=== PATIENT | female | born 1960 | race Caucasian/White ===

== ENCOUNTER 2018-06-23 13:14 | Inpatient (IN) ==
[2018-06-23] MEDS ORDERED: ONDANSETRON INJ 2 MG/ML 2 ML VIAL IV STA (13:49)
[2018-06-23] MEDS ORDERED: MoRPHine SULFATE 4 MG/ML 1 ML CARP\\VIAL IV STA ×2 (13:49→15:59)
[2018-06-23] MEDS ORDERED: SODIUM CHLORIDE 0.9% 1000ML 500 ML IV ONE (13:49)
[2018-06-23 14:17] LABS: Basophils # (auto) 0.01 K/uL (0-0.2); Basophils % (auto) 0.1 %; Hematocrit (blood only) 39.8 % (37-47); Hemoglobin 12.5 g/dL (12.0-16.0); Immature Granulocytes # (auto) 0.03 K/uL (0.00-0.02); Immature Granulocytes % (auto) 0.3 %; Lymphocytes # (auto) 1.27 K/uL (1.2-3.4); Lymphocytes % (auto) 10.8 %; Mean Corpuscular Hgb Conc 31.4 g/dL (32-36); Mean Corpuscular Volume 91.5 fL (80-100); Mean Platelet Volume 9.2 fL (7.4-10.4); Monocytes # (auto) 0.77 K/uL (0.11-0.59); Monocytes % (auto) 6.5 %; Neutrophils % (auto) 82.3 %; Platelet Count 376 K/uL (130-400); RDW Coefficient of Variation 13.5 % (11.5-14.5); RDW Standard Deviation 44.5 fL (36.4-46.3); Red Blood Count 4.35 M/uL (4.2-5.4); White Blood Count 11.78 K/uL (4.8-10.8)
[2018-06-23 14:33] LABS: Alanine Aminotransferase 16 U/L (12-78); Aspartate Aminotransferase 11 U/L (15-37); BUN Creatinine Ratio 15.7 (10-20); Blood Urea Nitrogen 11 mg/dl (7-18); Calcium 9.6 mg/dl (8.5-10.1); Carbon Dioxide 24 mmol/L (21-32); Chloride 100 mmol/L (98-107); Est GFR (African American) 108.1; Est GFR (Non-African American) 93.2; Glucose 107 mg/dl (70-99); Potassium 3.5 mmol/L (3.5-5.1); Sodium 137 mmol/L (136-145)
[2018-06-23 14:36] LABS: Albumin Globulin Ratio 0.6 (0.9-2); Alkaline Phosphatase 94 U/L (45-117); Bilirubin,Total 0.7 mg/dl (0.2-1); Globulin 4.7 gm/dl (2.5-4.0); Total Protein 7.7 gm/dl (6.4-8.2)
[2018-06-23] MEDS ORDERED: IOVERSOL 100ml IV PRN (15:42)
--- NOTE | 2018-06-23 16:06 | CT Scan Report ---
CT lumbar spine wo con CT DOSE: 0.00 mGy.cm CLINICAL HISTORY: Low back pain with left lower extremity radiculopathy. TECHNIQUE: Helical images were acquired in transverse plane. Reformatted sagittal and coronal images were reviewed. A dose lowering technique was utilized adhering to the principles of ALARA. CONTRAST: No contrast was administered COMPARISON STUDY: None. FINDINGS: Evaluation is somewhat limited due to the patient's very large body habitus and secondary beam harden ing artifact. L1-2 level: There are destructive changes involving the endplates. The findings are viewed as suspici ous for discitis osteomyelitis. An MRI the spine is recommended in follow-up to evaluate for epidural disease. L2-3 level: There is extensive discogenic endplate sclerosis. There is mild to moderate spinal stenos is. There is facet joint arthropathy. L3-4 level: There is a circumferential disc bulge. There is moderate to severe spinal stenosis. Ther e is facet joint arthropathy. L4-5 level: There is a circumferential disc bulge. There is no significant spinal or foraminal stenos is. L5-S1 level: There is no evidence of significant disc bulge or focal herniation. There is no evidence of spinal or foraminal stenosis. There are multiple psoas calcifications. IMPRESSION: 1. No acute fractures or traumatic subluxations 2. Destruction of the L1-2 endplates. The findings are suspicious for discitis and osteomyelitis. An MRI the lumbar spine is recommended in follow-up. 3. Multifactorial moderate spinal stenosis the L2-3 level, and moderate to severe spinal stenosis the L3-4 level. 4. Multifocal psoas calcifications. Electronically signed by: Garland Avalos M.D. 06/23/2018 4:05 PM
--- NOTE | 2018-06-23 16:20 | CT Scan Report ---
CT OF THE ABDOMEN AND PELVIS WITH CONTRAST CLINICAL HISTORY: Abdominal pain. Low back pain with chronic left lower extremity radiculopathy. COMPARISON STUDY: None. TECHNIQUE: Following IV administration of 94 mL of Optiray-320, axial images of the abdomen and pelvi s were obtained from the lung bases to the proximal femurs. Images were reviewed in the axial, sagitt al, and coronal planes. IV contrast was administered without complication. Automated exposure contro l was utilized for the study. A dose lowering technique was utilized adhering to the principles of A BILLIE. CT DOSE: 1196.26 mGycm FINDINGS: Please note that the lumbar spine CT will be reported separately. Lung bases are clear. The liver, spleen, adrenal glands, kidneys and pancreas are unremarkable. There is no hydronephrosis. Th ere is no evidence for a bowel obstruction. No lymphadenopathy or ascites is noted. The appendix is n ormal. There is no biliary or pancreatic ductal dilatation. The lumbar spine will be reported separat bulmaro. Destruction of the inferior endplate of L1 and superior endplate of L2 is noted. Paravertebral i nfiltration is noted. Central canal is suboptimally assessed by CT. There are multifocal calcificatio ns within the bilateral psoas muscles. Associated fluid collections cannot be excluded. There is danny ed disc space narrowing at L2-L3. Transitional vertebra is designated as L5 on this exam. This partia lly sacralized. IMPRESSION: 1. Severe destruction of the inferior endplate of L1 and superior endplate of L2 which suggests disci tis/osteomyelitis. MRI of the lumbar spine with and without contrast is recommended to evaluate for e pidural abscess. Calcifications within the bilateral psoas muscles are likely related to this process . The psoas muscles can be assessed at time of MRI to exclude intramuscular abscess. 2. No acute process within the abdomen or pelvis. No bowel obstruction. Normal appendix. Electronically signed by: Rc Yao M.D. 06/23/2018 4:18 PM
[2018-06-23] MEDS ORDERED: VANCOMYCIN CONSULT ACTIVE PRN (16:25)
[2018-06-23] MEDS ORDERED: PIPERACILLIN/TAZOBACTAM 4.5 GM/120 ML BAG IV ONE (16:25)
[2018-06-23] MEDS ORDERED: VANCOMYCIN HCL 1,000 MG/270 ML BAG IV STA (16:25)
[2018-06-23] MEDS ORDERED: PIPERACILL/TAZOBAC CONSULT ACTIVE PRN (16:25)
[2018-06-23] MEDS ORDERED: HYDROmorphone INJ 0.5 MG/0.5 ML SYR IV STA (16:49)
--- NOTE | 2018-06-23 17:26 | Emergency Department Note ---
History of Present Illness General Chief complaint: Back Injury/Pain Stated complaint: SEVERE PAIN IN LOWER BACK AND LEGS Time Seen by Provider: 06/23/18 13:34 History of Present Illness Maximum Pain Intensity: 10 57-year-old female who presents to emergency department with complaint of persistent and worsening lower back pain. The patient reports that she has been dealing with this pain for the past several months. She reports a history of chronic left sciatica, and does see a chiropractor. The patient reports that the pain is worsened with any movement. The patient reports that she has been seen here twice with similar pain, diagnosed initially with a UTI, and second time with constipation. The patient reports that she did use stool softeners which were very effective. She now reports that when she drinks water , she immediately has watery diarrhea. The patient has not had any fever or chills, recurrent urinary symptoms or significant abdominal pain. The patient denies any other recent infections. She denies IV drug abuse. The patient reports that she does have a remote history of MRSA infection with a left leg cellulitis. The patient rates her discomfort a 10 out of 10. Home Medications Home Medications Medication Instructions Recorded Confirmed Type benazepril 40 mg PO QAM 05/14/18 06/23/18 History diclofenac sodium 75 mg PO BID 05/14/18 06/23/18 History diltiazem HCl 240 mg PO QAM 05/14/18 06/23/18 History gabapentin 300 mg PO TID 05/14/18 06/23/18 History citalopram [Celexa] 40 mg PO QAM 06/06/18 06/23/18 History acetaminophen [Tylenol Extra 1,500 mg PO UD PRN 06/23/18 06/23/18 History Strength] Allergies Allergy/AdvReac Type Severity Reaction Status Date / Time No Known Allergies Allergy Verified 06/23/18 14:37 Past Med/Surg History Social History Current Living Situation: Alone current occupational status: unemployed Other Information That Helps Us Care for You: No Feels Safe at Home: Yes Safety Concerns: Feels Safe At This Time Smoking Status: Never smoker Do You Dip or Chew Tobacco: No Second Hand Exposure: No Hx Alcohol Use: Yes Alcohol type: wine Alcohol Intake Frequency: other Hx Substance Use: No Beliefs That Will Affect Care: None Preferred Language: Stateless Communication Ability: Effective Review of Systems HEENT: Denies dizziness, visual problems, hearing loss, tinnitus. Denies difficulty swallowing or oral lesions. PULMONARY: Denies cough, shortness of breath, sputum production or hemoptysis. CARDIOVASCULAR: Denies chest pain, palpitations, dyspnea on exertion, orthopnea or peripheral edema. GASTROINTESTINAL: Denies diarrhea, constipation, nausea, vomiting, or abdominal pain. GENITOURINARY: Denies any current dysuria, frequency, urgency or nocturia. NEUROLOGIC: Denies history of epilepsy, CVA, TIA or chronic headaches. MUSCULOSKELETAL: Denies history of joint tenderness/swelling. SKIN: Denies rashes or lesions. PSYCHIATRIC: Denies history of depression or mental illness. ENDOCRINE: Denies history of diabetes or thyroid disorders. Physical Exam Vital Signs Vital Signs - 24 hr 06/23/18 13:17 06/23/18 15:16 06/23/18 17:08 Temperature 36.6 C Temperature Source Oral Sepsis Recent Fever Within 48 Hours No Sepsis New/Unexplained Change in Mental Status No Sepsis Action Taken by Nursing No Action Required Pulse Rate 82 Pulse Rate [Right Finger] 82 88 Respiratory Rate 18 20 20 Respiratory Effort / Characteristics Non-Labored Non-Labored Respiratory Depth Normal Normal Respiratory Pattern Blood Pressure 130/84 Blood Pressure [Right Arm] 157/87 H 143/88 H Blood Pressure Mean 99 Blood Pressure Mean [Right Arm] 110 106 Blood Pressure Position [Right Arm] Pulse Oximetry 99 98 99 Oxygen Delivery Method Room Air Room Air Room Air 06/23/18 18:51 06/23/18 19:57 Temperature 37.1 C Temperature Source Oral Sepsis Recent Fever Within 48 Hours Sepsis New/Unexplained Change in Mental Status Sepsis Action Taken by Nursing Pulse Rate 86 Pulse Rate [Right Finger] 88 Respiratory Rate 20 20 Respiratory Effort / Characteristics Non-Labored Spontaneous Respiratory Depth Normal Respiratory Pattern Regular Blood Pressure 145/82 H Blood Pressure [Right Arm] 123/79 Blood Pressure Mean Blood Pressure Mean [Right Arm] 93 Blood Pressure Position [Right Arm] Lying Pulse Oximetry 95 93 Oxygen Delivery Method Room Air Room Air CONSTITUTIONAL: Healthy and well nourished obese female, alert and oriented X 3. Patient appears in moderately severe discomfort. HEENT: Normocephalic, atraumatic. Pupils equal, round and reactive. No scleral icterus or conjunctival injection/pallor. NECK: Full active range of motion without discomfort. RESPIRATORY: Clear to auscultation bilaterally with no wheezing, crackles, rhonchi or stridor. CARDIOVASCULAR: Regular rate and rhythm with no murmurs, rubs or gallops. GASTROINTESTINAL: Bowel sounds present in all quadrants. Abdomen is soft and nontender to palpation. Negative McBurney's point tenderness. MUSCULOSKELETAL: Examination shows generalized tenderness to palpation through the upper lumbar spine. No skin changes noted. Negative logroll bilaterally. Pedal pulses are intact. INTEGUMENTARY: No rash or other significant dermatologic conditions noted. Is no dermatomal rashes. HEMATOLOGIC: No ecchymosis or petechiae. PSYCHIATRIC: Positive affect. NEUROLOGIC: Cranial nerves II-XII grossly intact. No focal neurologic deficits noted. Lower extremities are sensory intact. Course Patient history and physical exam were performed. Nurse's notes were reviewed. Vital signs were reviewed and were normal. I also reviewed documentation from the patient's last 2 ED visits. Her first visit was on 05/15/19 for an acute UTI. She was seen here again on 06/06/18 having labs performed, and a KUB which showed moderate constipation. The patient was instructed to follow-up with her PCP for further management, however the patient reports that her PCP at [facility] left, and has been seeing a physician emergency medicine physician assistant. Reevaluated for her last 2 ED visits. Because the patient's persistent and increasing back pain, and concern for other acute intra-abdominal or intramuscular etiologies that cannot be seen on traditional x-rays, I did recommend performing a CT scan. The patient was in agreement. IV access was established, and labs were drawn. The patient was initially administered IV morphine and Zofran. The patient had a brief period of respite from the pain, but then the pain started to come back. She was administered an additional dose of IV morphine. Review of labs showed a mildly increased white count, otherwise remaining labs were normal, including a normal urine pulses. Noncontrast CT of the lumbar spine, as well as a CT of the abdomen and pelvis with IV contrast showed severe destruction of the inferior endplate of L1 and superior endplate of L2, suggestive of discitis/ osteomyelitis. The patient had worsening pain again, and was then administered IV Dilaudid. Additional labs were ordered, including sed rate, CRP and blood cultures x2. Sed rate and CRP are markedly elevated. The patient was also administered IV Zosyn and vancomycin antibiotics. An MRI of the lumbar spine with and without contrast was ordered. The patient did go to the MRI suite and could not tolerate the studies secondary to pain. The case was further discussed with Dr. Strickland, ED attending physician, who recommended hospitalist consultation. The patient was seen and evaluated by Dr. Escalera, [facility] hospitalist for admission. I did speak briefly with Dr. De La Rosa, spine surgeon who agrees with admission plan, and will consult with the hospitalist service. Please see hospitalist and Dr. De La Rosa's dictations for further treatment and final disposition. Administered Medications Discontinued Medications Hydromorphone HCl (Dilaudid) 0.5 mg IV NOW STA Stop: 06/23/18 16:50 Last Admin: 06/23/18 17:10 Dose: 0.5 mg Hydromorphone HCl (Dilaudid) 1 mg IV NOW STA Stop: 06/23/18 18:22 Last Admin: 06/23/18 19:45 Dose: 1 mg Sodium Chloride (Nss 1000ml) 500 mls @ 999 mls/hr IV .Q31M ONE Stop: 06/23/18 14:19 Last Infusion: 06/23/18 14:40 Dose: 0 mls/hr Admin: 06/23/18 14:14 Dose: 999 mls/hr Piperacillin Sod/Tazobactam Sod (Zosyn) 4.5 gm in 120 mls @ 240 mls/hr IV NOW ONE Stop: 06/23/18 16:54 Last Admin: 06/23/18 18:37 Dose: 240 mls/hr Vancomycin HCl (Vancomycin Hcl) 1,000 mg in 270 mls @ 125 mls/hr IV NOW STA Stop: 06/23/18 18:34 Last Admin: 06/23/18 19:05 Dose: 125 mls/hr Ioversol (Optiray 320 100ml) 94 ml IV ONCE PRN PRN Reason: Interaction Checking Stop: 06/27/18 15:41 Last Admin: 06/23/18 15:43 Dose: 94 ml Miscellaneous (Patient's Height And/Or Weight Needed) 1 ea N/A Q2H BRAULIO Stop: 07/23/18 18:44 Last Admin: 06/23/18 19:46 Dose: 1 ea Morphine Sulfate (Morphine Sulfate) 4 mg IV NOW STA Stop: 06/23/18 13:50 Last Admin: 06/23/18 14:14 Dose: 4 mg Morphine Sulfate (Morphine Sulfate) 4 mg IV NOW STA Stop: 06/23/18 16:00 Last Admin: 06/23/18 16:03 Dose: 4 mg Ondansetron HCl (Zofran) 4 mg IV NOW STA Stop: 06/23/18 13:50 Last Admin: 06/23/18 14:15 Dose: 4 mg Medical Decision Making Medical Records Attestation: I reviewed the patient's medical records. Home Medications Current Medication List: was personally reviewed by me Laboratory Data Attestation: I reviewed the patient's lab results. Result diagrams: 06/23/18 14:05 06/23/18 14:05 Lab Results 06/23/18 06/23/18 06/23/18 Range/Units 14:05 14:05 14:05 WBC 11.78 H (4.8-10.8) K/uL RBC 4.35 (4.2-5.4) M/uL Hgb 12.5 (12.0-16.0) g/dL Hct 39.8 (37-47) % MCV 91.5 (80-100) fL MCH 28.7 (25-34) pg MCHC 31.4 L (32-36) g/dL RDW Std Deviation 44.5 (36.4-46.3) fL RDW Coeff of Fausto 13.5 (11.5-14.5) % Plt Count 376 (130-400) K/uL MPV 9.2 (7.4-10.4) fL Immature Gran % (Auto) 0.3 % Neut % (Auto) 82.3 % Lymph % (Auto) 10.8 % Waldo % (Auto) 6.5 % Eos % (Auto) 0.0 % Baso % (Auto) 0.1 % Immature Gran # (Auto) 0.03 H (0.00-0.02) K/uL Neut # (Auto) 9.70 H (1.4-6.5) K/uL Lymph # (Auto) 1.27 (1.2-3.4) K/uL Waldo # (Auto) 0.77 H (0.11-0.59) K/uL Eos # (Auto) 0.00 (0-0.5) K/uL Baso # (Auto) 0.01 (0-0.2) K/uL ESR 86 H (0-21) mm/hr Sodium 137 (136-145) mmol/L Potassium 3.5 (3.5-5.1) mmol/L Chloride 100 (98-107) mmol/L Carbon Dioxide 24 (21-32) mmol/L Anion Gap 12.0 H (3-11) BUN 11 (7-18) mg/dl Creatinine 0.71 (0.6-1.2) mg/dl Est Cr Clr Drug Dosing Not Reportable Est GFR ( Amer) 108.1 Est GFR (Non-Af Amer) 93.2 BUN/Creatinine Ratio 15.7 (10-20) Glucose 107 H (70-99) mg/dl Calcium 9.6 (8.5-10.1) mg/dl Total Bilirubin 0.7 (0.2-1) mg/dl AST 11 L (15-37) U/L ALT 16 (12-78) U/L Alkaline Phosphatase 94 (45-117) U/L C-Reactive Protein (0-0.29) mg/dl Total Protein 7.7 (6.4-8.2) gm/dl Albumin 3.0 L (3.4-5.0) gm/dl Globulin 4.7 H (2.5-4.0) gm/dl Albumin/Globulin Ratio 0.6 L (0.9-2) Lipase 68 L (73-393) U/L 06/23/18 Range/Units 14:05 WBC (4.8-10.8) K/uL RBC (4.2-5.4) M/uL Hgb (12.0-16.0) g/dL Hct (37-47) % MCV (80-100) fL MCH (25-34) pg MCHC (32-36) g/dL RDW Std Deviation (36.4-46.3) fL RDW Coeff of Fausto (11.5-14.5) % Plt Count (130-400) K/uL MPV (7.4-10.4) fL Immature Gran % (Auto) % Neut % (Auto) % Lymph % (Auto) % Waldo % (Auto) % Eos % (Auto) % Baso % (Auto) % Immature Gran # (Auto) (0.00-0.02) K/uL Neut # (Auto) (1.4-6.5) K/uL Lymph # (Auto) (1.2-3.4) K/uL Waldo # (Auto) (0.11-0.59) K/uL Eos # (Auto) (0-0.5) K/uL Baso # (Auto) (0-0.2) K/uL ESR (0-21) mm/hr Sodium (136-145) mmol/L Potassium (3.5-5.1) mmol/L Chloride (98-107) mmol/L Carbon Dioxide (21-32) mmol/L Anion Gap (3-11) BUN (7-18) mg/dl Creatinine (0.6-1.2) mg/dl Est Cr Clr Drug Dosing Est GFR ( Amer) Est GFR (Non-Af Amer) BUN/Creatinine Ratio (10-20) Glucose (70-99) mg/dl Calcium (8.5-10.1) mg/dl Total Bilirubin (0.2-1) mg/dl AST (15-37) U/L ALT (12-78) U/L Alkaline Phosphatase (45-117) U/L C-Reactive Protein 10.70 H (0-0.29) mg/dl Total Protein (6.4-8.2) gm/dl Albumin (3.4-5.0) gm/dl Globulin (2.5-4.0) gm/dl Albumin/Globulin Ratio (0.9-2) Lipase (73-393) U/L Imaging Data Attestation: I personally reviewed and interpreted this imaging study as follows : My Impression: Noncontrast CT of the lumbar spine shows signal changes at the L1 -2 region without evidence for obvious fracture. CT of the abdomen and pelvis with IV contrast does not show any acute intra- abdominal findings. Radiologist does make mention of severe destructive lesions of the inferior L1 endplate, and superior L2 endplate, suggestive of discitis/osteomyelitis. Radiologist's Impression: CT lumbar spine wo con CT DOSE: 0.00 mGy.cm CLINICAL HISTORY: Low back pain with left lower extremity radiculopathy. TECHNIQUE: Helical images were acquired in transverse plane. Reformatted sagittal and coronal images were reviewed. A dose lowering technique was utilized adhering to the principles of ALARA. CONTRAST: No contrast was administered COMPARISON STUDY: None. FINDINGS: Evaluation is somewhat limited due to the patient's very large body habitus and secondary beam hardening artifact. L1-2 level: There are destructive changes involving the endplates. The findings are viewed as suspicious for discitis osteomyelitis. An MRI the spine is recommended in follow-up to evaluate for epidural disease. L2-3 level: There is extensive discogenic endplate sclerosis. There is mild to moderate spinal stenosis. There is facet joint arthropathy. L3-4 level: There is a circumferential disc bulge. There is moderate to severe spinal stenosis. There is facet joint arthropathy. L4-5 level: There is a circumferential disc bulge. There is no significant spinal or foraminal stenosis. L5-S1 level: There is no evidence of significant disc bulge or focal herniation. There is no evidence of spinal or foraminal stenosis. There are multiple psoas calcifications. IMPRESSION: 1. No acute fractures or traumatic subluxations 2. Destruction of the L1-2 endplates. The findings are suspicious for discitis and osteomyelitis. An MRI the lumbar spine is recommended in follow-up. 3. Multifactorial moderate spinal stenosis the L2-3 level, and moderate to severe spinal stenosis the L3-4 level. 4. Multifocal psoas calcifications. CT OF THE ABDOMEN AND PELVIS WITH CONTRAST CLINICAL HISTORY: Abdominal pain. Low back pain with chronic left lower extremity radiculopathy. COMPARISON STUDY: None. TECHNIQUE: Following IV administration of 94 mL of Optiray-320, axial images of the abdomen and pelvis were obtained from the lung bases to the proximal femurs. Images were reviewed in the axial, sagittal, and coronal planes. IV contrast was administered without complication. Automated exposure control was utilized for the study. A dose lowering technique was utilized adhering to the principles of ALARA. CT DOSE: 1196.26 mGycm FINDINGS: Please note that the lumbar spine CT will be reported separately. Lung bases are clear. The liver, spleen, adrenal glands, kidneys and pancreas are unremarkable. There is no hydronephrosis. There is no evidence for a bowel obstruction. No lymphadenopathy or ascites is noted. The appendix is normal. There is no biliary or pancreatic ductal dilatation. The lumbar spine will be reported separately. Destruction of the inferior endplate of L1 and superior endplate of L2 is noted. Paravertebral infiltration is noted. Central canal is suboptimally assessed by CT. There are multifocal calcifications within the bilateral psoas muscles. Associated fluid collections cannot be excluded. There is marked disc space narrowing at L2-L3. Transitional vertebra is designated as L5 on this exam. This partially sacralized. IMPRESSION: 1. Severe destruction of the inferior endplate of L1 and superior endplate of L2 which suggests discitis/osteomyelitis. MRI of the lumbar spine with and without contrast is recommended to evaluate for epidural abscess. Calcifications within the bilateral psoas muscles are likely related to this process. The psoas muscles can be assessed at time of MRI to exclude intramuscular abscess. 2. No acute process within the abdomen or pelvis. No bowel obstruction. Normal appendix. Prescription Drug Monitoring [place] Drug Monitoring Program reviewed and no issues identified Blood Pressure Blood Pressure Findings: Normal blood pressure MDM Narrative CT findings today are concerning for osteomyelitis of the lumbar spine. Other than the patient's recent UTI, she denies any other recent infections or injuries to the back. She does have a history of chronic back pain and sciatica. Her urinalysis is not suggestive of UTI which she has recently had. CT scans does not show any other intra-abdominal etiologies such as appendicitis , diverticulitis or bowel obstruction. Impression & Plan Acute osteomyelitis of lumbar spine Discharge Plan Visit Data *Final* Discharge Date/Time: 06/23/18 18:51 Chief Complaint: Back Injury/Pain Stated Complaint: SEVERE PAIN IN LOWER BACK AND LEGS ED Provider: Red Strickland ED Midlevel Provider: Nilson Florentino Discharge Problem: Acute osteomyelitis of lumbar spine Patient Disposition: Admitted As Inpatient Discharge Instructions Interventions: ED Discharge Assessment Last Done: 06/23/18 18:51
[2018-06-23] MEDS ORDERED: ONDANSETRON INJ 2 MG/ML 2 ML VIAL IV PRN (17:51)
[2018-06-23] MEDS ORDERED: HYDROmorphone INJ 1 MG/ML SYRINGE IV STA (18:21)
[2018-06-23] MEDS ORDERED: PATIENT'S HEIGHT AND/OR WEIGHT NEEDED SCH (18:45)
[2018-06-23] MEDS ORDERED: ACETAMINOPHEN 325 MG TAB PO PRN (19:28)
--- NOTE | 2018-06-23 20:25 | History & Physical Report ---
Date of Service June 23, 2018 Assessment & Plan (1) Discitis of lumbar region: Back pain, possible discitis and osteomyelitis of lumbar spine -CT scan 1. No acute fractures or traumatic subluxations 2. Destruction of the L1-2 endplates. The findings are suspicious for discitis and osteomyelitis. An MRI the lumbar spine is recommended in follow-up. 3. Multifactorial moderate spinal stenosis the L2-3 level, and moderate to severe spinal stenosis the L3-4 level. 4. Multifocal psoas calcifications. -continue broad spectrum antibiotics as started in the ED of Zosyn and Vancomycin -pain control and bowel regimen -patient could not tolerate MRI of the back secondary to pain -NPO after midnight for orthopedic evaluation Hypertension -hold off home dose KLARISSA inhibitor if patient may need surgery -continue home dose diltiazem Morbid obesity with BMI 51.3 -PT/OT evaluation history of depression -continue celexa DVT ppx: SCDs Code Status: Full Code sister Debbie [phone] History of Present Illness Primary Care Provider: [facility] 57-year-old female who presents to emergency department with complaint of persistent and worsening lower back pain Patient reports back pain has been alonzo on for several months. Also reporting that she has chronic left leg pain when ambulating. denies recent trauma to back. denies recreational drug use. patient cannot clarify whether the pain is from one point in the back and reports that the location of pain appears to change denies fevers. denies problems with balance, denies urinary changes, denies problems with bowel movements in recent past. reports poor appetitie. denies vomiting denies allergies to medication family history of mother with thyroid condition Allergies Allergy/AdvReac Type Severity Reaction Status Date / Time No Known Allergies Allergy Verified 06/23/18 14:37 Home Medications Home Medications Medication Instructions Recorded Confirmed Type benazepril 40 mg PO QAM 05/14/18 06/23/18 History diclofenac sodium 75 mg PO BID 05/14/18 06/23/18 History diltiazem HCl 240 mg PO QAM 05/14/18 06/23/18 History gabapentin 300 mg PO TID 05/14/18 06/23/18 History citalopram [Celexa] 40 mg PO QAM 06/06/18 06/23/18 History acetaminophen [Tylenol Extra 1,500 mg PO UD PRN 06/23/18 06/23/18 History Strength] Past Med/Surg History Social History Current Living Situation: Alone current occupational status: unemployed Other Information That Helps Us Care for You: No Feels Safe at Home: Yes Safety Concerns: Feels Safe At This Time Smoking Status: Never smoker Do You Dip or Chew Tobacco: No Second Hand Exposure: No Hx Alcohol Use: Yes Alcohol type: wine Alcohol Intake Frequency: other Hx Substance Use: No Beliefs That Will Affect Care: None Preferred Language: Burmese Communication Ability: Effective Physical Exam 2 Vital Signs (Past 24 Hours): Last Vital Signs Temp 36.6 C 06/23/18 13:17 Pulse 86 06/23/18 18:51 Resp 20 06/23/18 18:51 BP 145/82 H 06/23/18 18:51 Pulse Ox 95 06/23/18 18:51 Constitutional: WD/WN, vitals as above Eyes: PERRL, conjunctivae normal, anicteric sclerae ENMT: external ear and nose normal, oropharynx normal Respiratory: normal respiratory effort, lungs clear to auscultation Cardiovascular: RRR, no murmur, no edema Gastrointestinal (Abdomen): normal bowel sounds, soft, nontender, no hepatosplenomegaly Musculoskeletal: no point tenderness on palpation of the back Neurologic: PERRL, EOMI, accommodation nl, no face palsy, no dysarthria Psychiatric: A+Ox3, euthymic affect
[2018-06-23] MEDS ORDERED: INFLUENZA VIRUS QUAD VACCINE 0.5 ML SYR IM ONE (21:00)
[2018-06-23] MEDS ORDERED: INFLUENZA ADMINISTRATION CHARGE ONE (21:00)
[2018-06-23] MEDS ORDERED: PNEUMOCOCCAL ADMINISTRATION CHARGE ONE (21:00)
[2018-06-23] MEDS ORDERED: PNEUMOCOCCAL POLYSACCHARIDES 25 MCG/0.5 ML VIAL/SYR IM ONE (21:00)
[2018-06-23] MEDS ORDERED: VANCOMYCIN HCL 2,000 MG in SODIUM CHLORIDE 0.9% 500 ML IV SCH (22:00)
[2018-06-23] MEDS: DOCUSATE SODIUM 100 MG CAP PO SCH (23:35)
[2018-06-23] MEDS: SODIUM CHLORIDE 0.9% 1000ML 1,000 ML IV SCH (23:35)
[2018-06-23] MEDS: GABAPENTIN 300 MG CAP PO SCH (23:43)
[2018-06-24 01:24] LABS: Appearance Urine Clear (Clear); Bacteria Urine Automated 1+ (Negative); Bilirubin Urine Negative (Negative); Color Urine Yellow; Epithelial Cell Urine Auto >30 /lpf (0-5); Glucose Urine UA Negative (Negative); Ketones Urine 1+ (Negative); Leukocyte Esterase Urine Negative (Negative); Nitrite Urine Positive (Negative); Protein Urine Negative (Negative); Specific Gravity Urine > 1.045 (1.000-1.030); Urobilinogen Urine Negative (Negative)
[2018-06-24] MEDS ORDERED: Nursing to Pharmacy Communication ONE (02:09)
[2018-06-24] MEDS: PIPERACILLIN/TAZOBACTAM 4.5 GM in DEXTROSE 5% 100 ML IV SCH ×3 (03:37→18:45)
[2018-06-24 05:56] LABS: Basophils # (auto) 0.01 K/uL (0-0.2); Basophils % (auto) 0.1 %; Eosinophils # (auto) 0.01 K/uL (0-0.5); Eosinophils % (auto) 0.1 %; Hematocrit (blood only) 35.3 % (37-47); Hemoglobin 10.9 g/dL (12.0-16.0); Immature Granulocytes # (auto) 0.02 K/uL (0.00-0.02); Immature Granulocytes % (auto) 0.2 %; Lymphocytes # (auto) 1.34 K/uL (1.2-3.4); Lymphocytes % (auto) 13.5 %; Mean Corpuscular Hgb Conc 30.9 g/dL (32-36); Mean Corpuscular Volume 92.4 fL (80-100); Mean Platelet Volume 8.7 fL (7.4-10.4); Monocytes # (auto) 0.98 K/uL (0.11-0.59); Monocytes % (auto) 9.9 %; Neutrophils # (auto) 7.56 K/uL (1.4-6.5); Neutrophils % (auto) 76.2 %; Platelet Count 307 K/uL (130-400); RDW Coefficient of Variation 13.6 % (11.5-14.5); RDW Standard Deviation 45.3 fL (36.4-46.3); Red Blood Count 3.82 M/uL (4.2-5.4); White Blood Count 9.92 K/uL (4.8-10.8)
[2018-06-24 06:32] LABS: Albumin Level 2.4 gm/dl (3.4-5.0); BUN Creatinine Ratio 17.8 (10-20); Calcium 8.6 mg/dl (8.5-10.1); Creatinine Clr Calc Pharmacy 173.9 ml/min; Est GFR (African American) 120.5; Est GFR (Non-African American) 103.9; Potassium 3.3 mmol/L (3.5-5.1)
[2018-06-24 06:34] LABS: Albumin Globulin Ratio 0.6 (0.9-2); Bilirubin,Total 0.6 mg/dl (0.2-1); Globulin 4.3 gm/dl (2.5-4.0); Total Protein 6.7 gm/dl (6.4-8.2)
[2018-06-24] MEDS: HYDROmorphone INJ 0.5 MG/0.5 ML SYR IV PRN ×3 (08:08→20:44)
[2018-06-24] MEDS: POTASSIUM CHLORIDE / WTR 10 MEQ/100 ML PLCT IV SCH ×4 (09:06→16:52)
[2018-06-24] MEDS: CITALOPRAM 40 MG TAB PO SCH (09:08)
[2018-06-24] MEDS: dilTIAZem HCL 240 MG CAPCR PO SCH (09:08)
[2018-06-24] MEDS: GABAPENTIN 300 MG CAP PO SCH ×3 (09:08→20:44)
[2018-06-24] MEDS: DOCUSATE SODIUM 100 MG CAP PO SCH ×2 (09:13→20:43)
--- NOTE | 2018-06-24 09:13 | Consultation Report ---
DATE OF CONSULTATION: 06/24/2018 CHIEF COMPLAINT: Low back pain. HISTORY OF PRESENT ILLNESS: The patient is pleasant. She is comfortable this morning. Ongoing back pain 2 months in duration, worsening over time. Came to Emergency Room for evaluation and treatment. She has chronic stenosis of the spine, chronic back pain, sciatica when ambulating. She was assessed in the Emergency Room for possible diskitis of the lumbar spine. SOCIAL HISTORY: Moderate alcohol intake, smoking negative. MEDICATIONS: Include anti-inflammatories, gabapentin, Celexa, Tylenol. She denies any trauma, any recreational drug usage. There is no evidence of IV meds, which could cause any infectious situation. She denies any fevers, sweats, chills. No urinary changes. Denies any bowel and bladder issues. Some nausea, but no vomiting. MEDICAL HISTORY: Includes hypertension and morbid obesity with a BMI of over 50. Also history of depression. PHYSICAL EXAMINATION: GENERAL: She is alert, oriented and cooperative here today. VITAL SIGNS: Stable. She is afebrile. ABDOMEN: Not rigid. HEENT: Normal. EXTREMITIES: Good pulses to the extremities. HEART: She is not tachycardic. NEUROLOGIC: Normal, 5/5 strength, good sensation, motor ability. DIAGNOSTIC DATA: Images reviewed. She does have some severe degenerative changes at L1-L2 lumbar spine. I have seen this in light of degenerative changes of the lumbar spine at a certain level. In another words, it is not always consistent with an infectious etiology. I know it is possibly an infection and I gather that, but I think it may just be severely degenerative segment. IMPRESSION: Delightful patient with comorbidities of morbid obesity, depression, hypertension along with apparent severely degenerative disk at L1-L2, stenosis elsewhere, an outside chance or possibility of a diskitis lumbar spine. PLAN: This in my opinion would be treated nonoperative. We will go ahead and treat the patient. If this would advance to some sort of septic situation, it could be construed as a surgical problem. Looking at her overall comorbidities, particularly obesity, surgery of any kind would come with at significant amount of morbidity and there is a factor of mortality with any type of invasive surgery on this problem if again it does come to surgical intervention. I will follow the patient closely.
[2018-06-24] MEDS: SENNA 8.6 MG TAB PO SCH (09:14)
[2018-06-24] MEDS: VANCOMYCIN HCL 1,750 MG in SODIUM CHLORIDE 0.9% 500 ML IV SCH (12:43)
[2018-06-24] MEDS: SODIUM CHLORIDE 0.9% 1000ML 1,000 ML IV SCH (13:49)
--- NOTE | 2018-06-24 15:41 | Hospitalist Progress Note ---
Date of Service June 24, 2018 Assessment & Plan (1) Discitis of lumbar region: Back pain, possible discitis and osteomyelitis of lumbar spine -CT scan 1. No acute fractures or traumatic subluxations 2. Destruction of the L1-2 endplates. The findings are suspicious for discitis and osteomyelitis. An MRI the lumbar spine is recommended in follow-up. 3. Multifactorial moderate spinal stenosis the L2-3 level, and moderate to severe spinal stenosis the L3-4 level. 4. Multifocal psoas calcifications. -continue broad spectrum antibiotics as started in the ED of Zosyn and Vancomycin -pain control and bowel regimen -patient could not tolerate MRI of the back secondary to pain -patient was evaluated by orthopedic service on 06/24/18 and that treatment at this time is non-operative -will continue Zosyn and Vancomycin at this time while awaiting admission blood culture results Hypertension -continue home dose diltiazem -can resume home dose KLARISSA inhibitor dosing as lisinopril hypokalemia serum potassium 3.3 on 06/24/18, give IV potassium repletion Morbid obesity with BMI 51.3 -PT/OT evaluation history of depression -continue celexa DVT ppx: SCDs Code Status: Full Code sister Debbie [phone] Subjective Patient seen and examined at the bedside again no point tenderness on exam. report pain is controlled at this time. was able to do some activities with occupational therapy denies feeling febrile. denies chest pain or shortness of breath. able to eat the diet. denies vomiting Physical Exam 2 Vital Signs (Past 24 Hours): Last Vital Signs Temp 36.9 C 06/24/18 15:23 Pulse 75 06/24/18 15:23 Resp 17 06/24/18 15:23 BP 139/85 06/24/18 15:23 Pulse Ox 94 06/24/18 15:23 Constitutional: + obese Eyes: PERRL, conjunctivae normal, anicteric sclerae ENMT: external ear and nose normal, oropharynx normal Respiratory: normal respiratory effort, lungs clear to auscultation Cardiovascular: RRR, no murmur, no edema Gastrointestinal (Abdomen): normal bowel sounds, soft, nontender, no hepatosplenomegaly Neurologic: PERRL, EOMI, accommodation nl, no face palsy, no dysarthria Psychiatric: A+Ox3, euthymic affect
[2018-06-24] MEDS: LISINOPRIL 40 MG TAB PO SCH (17:17)
[2018-06-25] MEDS: VANCOMYCIN HCL 1,750 MG in SODIUM CHLORIDE 0.9% 500 ML IV SCH ×2 (02:33→16:54)
[2018-06-25] MEDS: PIPERACILLIN/TAZOBACTAM 4.5 GM in DEXTROSE 5% 100 ML IV SCH ×3 (04:01→19:48)
[2018-06-25] MEDS: SODIUM CHLORIDE 0.9% 1000ML 1,000 ML IV SCH ×2 (04:06→11:35)
[2018-06-25] MEDS: SENNA 8.6 MG TAB PO SCH (07:44)
[2018-06-25] MEDS: DOCUSATE SODIUM 100 MG CAP PO SCH ×2 (07:44→20:01)
[2018-06-25] MEDS: dilTIAZem HCL 240 MG CAPCR PO SCH (07:48)
[2018-06-25] MEDS: GABAPENTIN 300 MG CAP PO SCH ×3 (07:49→20:01)
[2018-06-25] MEDS: CITALOPRAM 40 MG TAB PO SCH (07:49)
[2018-06-25] MEDS: LISINOPRIL 40 MG TAB PO SCH (07:49)
[2018-06-25 08:37] LABS: Basophils # (auto) 0.02 K/uL (0-0.2); Basophils % (auto) 0.2 %; Eosinophils # (auto) 0.01 K/uL (0-0.5); Eosinophils % (auto) 0.1 %; Hematocrit (blood only) 34.7 % (37-47); Hemoglobin 11.3 g/dL (12.0-16.0); Immature Granulocytes # (auto) 0.04 K/uL (0.00-0.02); Immature Granulocytes % (auto) 0.4 %; Lymphocytes # (auto) 1.56 K/uL (1.2-3.4); Lymphocytes % (auto) 17.5 %; Mean Corpuscular Hgb Conc 32.6 g/dL (32-36); Mean Corpuscular Volume 92.8 fL (80-100); Mean Platelet Volume 8.7 fL (7.4-10.4); Monocytes # (auto) 0.52 K/uL (0.11-0.59); Monocytes % (auto) 5.8 %; Neutrophils # (auto) 6.75 K/uL (1.4-6.5); Platelet Count 298 K/uL (130-400); RDW Coefficient of Variation 13.6 % (11.5-14.5); RDW Standard Deviation 46.3 fL (36.4-46.3); Red Blood Count 3.74 M/uL (4.2-5.4)
[2018-06-25 09:01] LABS: BUN Creatinine Ratio 11.4 (10-20); Calcium 8.5 mg/dl (8.5-10.1); Creatinine Clr Calc Pharmacy 141.8 ml/min; Est GFR (African American) 112.6; Est GFR (Non-African American) 97.2; Potassium 3.4 mmol/L (3.5-5.1)
[2018-06-25] MEDS: HYDROmorphone INJ 0.5 MG/0.5 ML SYR IV PRN ×3 (10:24→23:33)
--- NOTE | 2018-06-25 10:40 | Infectious Disease Consult ---
Date of Consultation June 25, 2018 Assessment & Plan (1) Discitis of lumbar region: would continue current abx, follow blood cultures, may remain negative. she does not wish to undergo any surgical intervention at this time. She has declined MRI. In light of recent uti, she potentially could have seeded her bloodstream and developed acute osteo of spine. Additionally, her inflammatory markers are significantly elevated, suggesting infection. She likely will receive emperic course of IV abx, 6 weeks duration, unless blood culures become + and help guide therapy. Discussed with pt at length. Also spoke with case management, she is uninsured and will likely need placement. she will need weekly cbc, cmp, esr, crp, vanco trough - maintain 15-20 while on therapy. (2) Acute osteomyelitis of lumbar spine: History of Present Illness Attending Physician: Robert Escalera MD pt admitted with back pain, states her friends urged her to come to ER. started spontaneously 2-3 weeks ago. denies any trauma associated. no f/c at home. reviewed old chart, has had 2 ER visits recently, 05/14 for hematuria, UA + but increased ep cells and culture with > 3 organisms, no final done, was d/c from ER with Keflex, completed this and symptoms resolved. Was also in ER on 06/06 with back pain, diagnosed with constipation, treated d/c home. no imaging done. Presented again to ER on 06/23 - ct abd/pelvis done - L1/L2 destruction with concern for discitis/osteo. L spine ct done and shows the same. MRI suggested but pt states she can not lie flat for the duration of time needed to complete an MRI due to pain. comfortable on my exam, currently denies pain. pain worse with movement. Ortho consulted, no plan for OR. Inital wbc 11, now 8. Blood cultures done in ER - negative to date. Has been on vanco and zosyn since admission, tolerating well. no vanco level done. 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 UA done in ER 5 -10 wbc >30 ep cells. culture done on 06/24- pending. no gu symptoms. no abd pain , no n/v/d, eating well. no cp, sob, cough. ID consulted for abx plan in setting of negative cultures. Pt states she does not want MRI imaging and does not want to proceed with any surgical intervention at this time. Ortho eval - unclear if ct results represent infection vs djd. ESR was elevated at 86 in ER and crp elevated at 10. Allergies Allergy/AdvReac Type Severity Reaction Status Date / Time No Known Allergies Allergy Verified 06/23/18 14:37 Home Medications Home Medications Medication Instructions Recorded Confirmed Type benazepril 40 mg PO QAM 05/14/18 06/23/18 History diclofenac sodium 75 mg PO BID 05/14/18 06/23/18 History diltiazem HCl 240 mg PO QAM 05/14/18 06/23/18 History gabapentin 300 mg PO TID 05/14/18 06/23/18 History citalopram [Celexa] 40 mg PO QAM 06/06/18 06/23/18 History acetaminophen [Tylenol Extra 1,500 mg PO UD PRN 06/23/18 06/23/18 History Strength] Patient History Medical History UTI (urinary tract infection) (Resolved) Hypertension (Chronic) Sciatica (Chronic) Surgical History History of dilatation and curettage (Resolved) Hernia Social History marital status: Current Living Situation: Alone current occupational status: unemployed Other Information That Helps Us Care for You: No Feels Safe at Home: Yes Safety Concerns: Feels Safe At This Time Smoking Status: Never smoker Do You Dip or Chew Tobacco: No Second Hand Exposure: No Hx Alcohol Use: Yes Alcohol type: wine Alcohol Intake Frequency: other Hx Substance Use: No Beliefs That Will Affect Care: None Communication Ability: Effective Review of Systems all remaining ros reviewed and are negative Physical Exam 2 Vital Signs (Past 24 Hours): Last Vital Signs Temp 36.9 C 06/25/18 07:48 Pulse 80 06/25/18 07:48 Resp 20 06/25/18 07:48 BP 150/92 H 06/25/18 07:48 Pulse Ox 94 06/25/18 07:48 Constitutional: WD/WN, vitals as above Eyes: PERRL, conjunctivae normal, anicteric sclerae ENMT: external ear and nose normal, oropharynx normal Neck: normal visual inspection Respiratory: normal respiratory effort, lungs clear to auscultation Cardiovascular: RRR, no murmur, no edema Gastrointestinal (Abdomen): normal bowel sounds, soft, nontender, no hepatosplenomegaly Skin: no rashes, warm and dry Psychiatric: A+Ox3, euthymic affect Results & Data Laboratory Results Microbiology 06/23/18 17:25 Blood Blood Culture - Preliminary No growth to date. 06/23/18 17:18 Blood Blood Culture - Preliminary No growth to date.
[2018-06-25] MEDS ORDERED: VANCOMYCIN TROUGH ONE (15:30)
--- NOTE | 2018-06-25 16:55 | Pharmacy Report ---
Pharmacy Abx Dose Short Note - Date of Service June 25, 2018 - Assessment & Plan Assessment * 57 year old F receiving vancomycin for treatment of osteomyelitis/discitis * Day # 3 of antimicrobial therapy. Plan Vancomycin * Trough level of 17.5 mcg/mL is therapeutic * Continue dose of 1750 mg IV every 14 hours * Goal trough level: 15 to 20 mcg/mL * Trough or random level ordered for: 06/27 @7786 Pharmacy will continue to follow and will adjust dose/frequency as necessary. Thank you.
--- NOTE | 2018-06-25 17:48 | Hospitalist Progress Note ---
Date of Service June 25, 2018 Assessment & Plan (1) Discitis of lumbar region: Back pain, possible discitis and osteomyelitis of lumbar spine -CT scan 1. No acute fractures or traumatic subluxations 2. Destruction of the L1-2 endplates. The findings are suspicious for discitis and osteomyelitis. An MRI the lumbar spine is recommended in follow-up. 3. Multifactorial moderate spinal stenosis the L2-3 level, and moderate to severe spinal stenosis the L3-4 level. 4. Multifocal psoas calcifications. -continue broad spectrum antibiotics as started in the ED of Zosyn and Vancomycin -pain control and bowel regimen -patient could not tolerate MRI of the back secondary to pain -patient was evaluated by orthopedic service on 06/24/18 and that treatment at this time is non-operative -since admission, patient has been on Zosyn and Vancomycin, the preliminary blood cultures are negative but given elevated inflammatory markers and patient' s inability to tolerate MRI imaging to have more definitive diagnostics whethere or not there is an osteomyelities, have consulted infectious disease consult on 06/25/18 -Infectious disease consult has recommended empiric course of IV antibiotics, 6 weeks duration, unless blood cultures becomes positive -urine culture noted be positive for gram negative bacilli -continue Vancomycin and Zosyn in the hospital for now; patient has not decided whether she would want a PICC line Hypertension -continue home dose diltiazem -continue home dose KLARISSA inhibitor dosing as lisinopril hypokalemia serum potassium 3.3 on 06/24/18, give IV potassium repletion improved to 3.4, will give additional potassium as oral Morbid obesity with BMI 51.3 -continue PT/OT evaluation history of depression -continue celexa DVT ppx: SCDs Code Status: Full Code sister Debbie [phone] Subjective Patient seen and examined at the bedside again no point tenderness on exam. report pain is controlled at this time. reported able to do some ambulation denies feeling febrile. denies chest pain or shortness of breath. able to eat the diet. denies vomiting hospitalist discussed with patient about infectious disease physician recommendations; patient has not decided whether she would want a PICC line at this time Physical Exam 2 Vital Signs (Past 24 Hours): Last Vital Signs Temp 36.9 C 06/25/18 15:42 Pulse 73 06/25/18 15:42 Resp 20 06/25/18 15:42 BP 129/84 06/25/18 17:14 Pulse Ox 97 06/25/18 15:42 Constitutional: WD/WN, vitals as above + obese Eyes: PERRL, conjunctivae normal, anicteric sclerae ENMT: external ear and nose normal, oropharynx normal Respiratory: normal respiratory effort, lungs clear to auscultation Cardiovascular: RRR, no murmur, no edema Gastrointestinal (Abdomen): normal bowel sounds, soft, nontender, no hepatosplenomegaly Neurologic: PERRL, EOMI, accommodation nl, no face palsy, no dysarthria Psychiatric: A+Ox3, euthymic affect
[2018-06-25] MEDS ORDERED: POTASSIUM CHLORIDE 10 MEQ TABCR PO STA (17:53)
[2018-06-26] MEDS: PIPERACILLIN/TAZOBACTAM 4.5 GM in DEXTROSE 5% 100 ML IV SCH (04:00)
[2018-06-26] MEDS: VANCOMYCIN HCL 1,750 MG in SODIUM CHLORIDE 0.9% 500 ML IV SCH ×2 (06:07→19:38)
[2018-06-26] MEDS: HYDROmorphone INJ 0.5 MG/0.5 ML SYR IV PRN ×3 (06:15→22:29)
[2018-06-26] MEDS: GABAPENTIN 300 MG CAP PO SCH ×3 (07:41→21:04)
[2018-06-26] MEDS: SENNA 8.6 MG TAB PO SCH (07:41)
[2018-06-26] MEDS: CITALOPRAM 40 MG TAB PO SCH (07:41)
[2018-06-26] MEDS: LISINOPRIL 40 MG TAB PO SCH (07:42)
[2018-06-26] MEDS: dilTIAZem HCL 240 MG CAPCR PO SCH (07:42)
[2018-06-26] MEDS: DOCUSATE SODIUM 100 MG CAP PO SCH ×2 (07:43→21:12)
[2018-06-26] MEDS: cefTRIAXone SODIUM 2,000 MG in DEXTROSE 5% 50 ML IV SCH (10:05)
--- NOTE | 2018-06-26 15:24 | XRay Report ---
XR chest 1V portable HISTORY: 57 years-old Female RIGHT PICC LINE PLACEMENT status post placement of a right-sided PICC COMPARISON: CT abdomen and pelvis of same day TECHNIQUE: Portable AP view of the chest FINDINGS: Cardiac silhouette is upper limits of normal in size. Right-sided PICC is noted with distal tip in th e expected region of the proximal SVC. No pneumothorax, pleural effusion or overt pulmonary edema. De generative changes of the shoulders and spine. IMPRESSION: Status post placement of a right-sided PICC, distal tip terminating in the expected region of the pro ximal SVC. No pneumothorax. The above report was generated using voice recognition software. It may contain grammatical, syntax o r spelling errors. Electronically signed by: Oliver Crockett M.D. 06/26/2018 3:23 PM
--- NOTE | 2018-06-26 16:08 | Hospitalist Progress Note ---
Date of Service June 26, 2018 Assessment & Plan (1) Discitis of lumbar region: Back pain, possible discitis and osteomyelitis of lumbar spine -CT scan 1. No acute fractures or traumatic subluxations 2. Destruction of the L1-2 endplates. The findings are suspicious for discitis and osteomyelitis. An MRI the lumbar spine is recommended in follow-up. 3. Multifactorial moderate spinal stenosis the L2-3 level, and moderate to severe spinal stenosis the L3-4 level. 4. Multifocal psoas calcifications. -pain control and bowel regimen -patient could not tolerate MRI of the back secondary to pain -patient was evaluated by orthopedic service on 06/24/18 and that treatment at this time is non-operative -as per discussions with infectious disease service, Dr. Gonzales and Dr. Cary , given that patient has discitis with elevated inflammatory markers but absent positive blood culture and lacking MRI evidence as patient reports that she cannot tolerate lying down for the imaging study, and with positive urinanalysis for pansensitive E.coli in the urine, patient advised to continue IV antibiotics for 6 weeks in case there is an infectious process or osteomyelitis from an infection -PICC line placed on right arm on 06/26/18 -since admission, patient has been on Zosyn and Vancomycin from 06/23/18 and on patient is transitioned to Ceftrixone as 2 grams daily for E.coli coverage and to continue Vancomycin -currently the Vancomycin is dosed as 1750 mg q14 hours and vancomycin trough being re-measured on 06/27/18 -plan is to have patient go to [facility] for physical rehabilitation and to continue IV antibiotics as outpatient when a bed is ready -will need weekly cbc, cmp, esr, crp, vanco trough - maintain 15-20 while on therapy Hypertension -continue home dose diltiazem -continue home dose KLARISSA inhibitor dosing as lisinopril hypokalemia serum potassium 3.3 on 06/24/18, give IV potassium repletion improved to 3.4 on 06/25/18 and given additional potassium as oral Morbid obesity with BMI 51.3 -continue PT/OT history of depression -continue celexa DVT ppx: SCDs Code Status: Full Code sister Debbie [phone] plan is to have patient go to [facility] for physical rehabilitation and to continue IV antibiotics as outpatient when a bed is ready Subjective Patient seen and examined at the bedside s/p PICC of right arm Patient denies feeling febrile. denies chest pain or shortness of breath. able to eat the diet. denies vomiting Physical Exam 2 Vital Signs (Past 24 Hours): Last Vital Signs Temp 36.7 C 06/26/18 15:36 Pulse 70 06/26/18 15:36 Resp 18 06/26/18 15:36 BP 105/70 06/26/18 15:36 Pulse Ox 98 06/26/18 15:36 Constitutional: WD/WN, vitals as above + obese Eyes: PERRL, conjunctivae normal, anicteric sclerae ENMT: external ear and nose normal, oropharynx normal Respiratory: normal respiratory effort, lungs clear to auscultation Cardiovascular: RRR, no murmur, no edema Gastrointestinal (Abdomen): normal bowel sounds, soft, nontender, no hepatosplenomegaly Musculoskeletal: Head/Neck/Chest: normocephalic and head atraumatic no point tenderness of the spine Neurologic: PERRL, EOMI, accommodation nl, no face palsy, no dysarthria Psychiatric: A+Ox3, euthymic affect
[2018-06-27] MEDS: HYDROmorphone INJ 0.5 MG/0.5 ML SYR IV PRN ×2 (06:21→15:27)
[2018-06-27] MEDS: CITALOPRAM 40 MG TAB PO SCH (07:38)
[2018-06-27] MEDS: LISINOPRIL 40 MG TAB PO SCH (07:38)
[2018-06-27] MEDS: dilTIAZem HCL 240 MG CAPCR PO SCH (07:38)
[2018-06-27] MEDS: GABAPENTIN 300 MG CAP PO SCH ×3 (07:38→20:58)
[2018-06-27] MEDS: SENNA 8.6 MG TAB PO SCH (07:39)
[2018-06-27] MEDS: DOCUSATE SODIUM 100 MG CAP PO SCH ×2 (07:39→19:57)
[2018-06-27] MEDS ORDERED: VANCOMYCIN TROUGH ONE (09:30)
[2018-06-27] MEDS: VANCOMYCIN HCL 1,750 MG in SODIUM CHLORIDE 0.9% 500 ML IV SCH (09:37)
[2018-06-27] MEDS: cefTRIAXone SODIUM 2,000 MG in DEXTROSE 5% 50 ML IV SCH (09:37)
[2018-06-27 09:59] LABS: Basophils # (auto) 0.02 K/uL (0-0.2); Basophils % (auto) 0.2 %; Eosinophils # (auto) 0.05 K/uL (0-0.5); Eosinophils % (auto) 0.6 %; Hemoglobin 10.6 g/dL (12.0-16.0); Immature Granulocytes # (auto) 0.03 K/uL (0.00-0.02); Immature Granulocytes % (auto) 0.4 %; Lymphocytes # (auto) 1.28 K/uL (1.2-3.4); Lymphocytes % (auto) 15.9 %; Mean Corpuscular Hgb Conc 31.2 g/dL (32-36); Mean Corpuscular Volume 92.4 fL (80-100); Mean Platelet Volume 8.9 fL (7.4-10.4); Monocytes # (auto) 0.49 K/uL (0.11-0.59); Monocytes % (auto) 6.1 %; Neutrophils # (auto) 6.19 K/uL (1.4-6.5); Neutrophils % (auto) 76.8 %; Platelet Count 282 K/uL (130-400); RDW Coefficient of Variation 13.8 % (11.5-14.5); RDW Standard Deviation 46.4 fL (36.4-46.3); Red Blood Count 3.68 M/uL (4.2-5.4); White Blood Count 8.06 K/uL (4.8-10.8)
[2018-06-27 10:38] LABS: BUN Creatinine Ratio 5.7 (10-20); Calcium 8.6 mg/dl (8.5-10.1); Est GFR (African American) 16.2; Potassium 3.2 mmol/L (3.5-5.1)
[2018-06-27] MEDS ORDERED: SODIUM CHLORIDE 0.9% 1000ML 1,000 ML IV SCH ×2 (11:30→18:30)
--- NOTE | 2018-06-27 11:33 | Pharmacy Report ---
Pharmacy Abx Dose Short Note - Date of Service June 27, 2018 - Assessment & Plan Laboratory Tests 06/27/18 09:44 Vancomycin Trough 40.0 Assessment 57 year old F receiving Vancomycin for treatment of osteomyelitis/discitis Day # 5 of antimicrobial therapy. Patient also on Rocephin day #2 Plan Vancomycin * Trough level of 40 mcg/mL is supratherapeutic. * Patient's SCr was stable and today increased to 3.41 * BMI of 51 also contributed to an increased trough level. * Will cancel vanc for now and re-dose when level is in normal range. * Goal trough level for osteomyelitis: 15-20 mcg/mL * Random level ordered for: 06/28/18 with AM labs Pharmacy will continue to follow and will adjust dose/frequency as necessary. Thank you.
[2018-06-27 15:01] LABS: Calcium 8.2 mg/dl (8.5-10.1); Creatinine Clr Calc Pharmacy 26.1 ml/min; Est GFR (African American) 15.5; Est GFR (Non-African American) 13.4; Potassium 3.4 mmol/L (3.5-5.1)
--- NOTE | 2018-06-27 15:12 | Nephrology Consultation ---
Date of Consultation June 27, 2018 Assessment & Plan (1) Acute renal failure: baseline creatinine 0.7-0.8; at baseline as recently as 06/25; no labs 06/26 ; today w/ creatinine 3.4; chemistries acceptable as is her volume status. pt w / hx of recurrent UTI and source is suspected as potential source in her discitis; not oliguric -this is most likely ATN from vancomycin toxicity +/- from discitis itself; other dx on differential include prerenal process, interstitial nephritis, or less likely cortical necrosis or glomerular disease -f/u repeat blood cxs -trial of IV fluid resuscitation not unreasonable >> will change however from NS to normosol d/t hyperchloremia and low K at lower rate of 100 mL/hr -no urgent indication for dialysis but cannot rule out need -needs strict I/O -did order repeat uacm and urine electrolytes and for completeness urine eosinophils, since in this pt w/o underlying renal disease (though proteinuria status at baseline unknown) these may be useful -if no recovery or if back pain , will need renal u/s -daily bmp and every other day cbc -cont to avoid nsaids and iv contrast -I stopped lisinopril (was already on hold) Present on Admission?: No History of Present Illness Reason for Consultation: DEJON suspect vancomycin toxicity Requesting Physician: Dr Escalera Attending Physician: Robert Escalera MD History of Present Illness 57 y/o F whom I'm asked to see for DEJON. PMH includes class 3 obesity (bmi 51), HTN, chronic back and L leg pain. On 06/23 (the day of admission) she had CT studies w/ IV contrast remarkable for L2 discitis, despite no hx of trauma or drug use. She was on nsaids as well as benazepril [employer]. blood cxs are negative ; did have e coli + urine cx on presentation ( UA could be c/w but not slam dunk for infection). she has been receiving vancomycin - this is day 5; trough this am was 40; last vanco dose was 1750 mg q14hrs; had about half of 1800 mg dose today before trough posted; previous dose was last evening. her presenting creatinine was 0.7 her baseline on 06/23; stayed there; then no labs on 06/26; then next lab on 06/27 was creat 3.4. Pt is normotensive on RA. she is getting NS 150 ml hourly Allergies Allergy/AdvReac Type Severity Reaction Status Date / Time No Known Allergies Allergy Verified 06/23/18 14:37 Home Medications Home Medications Medication Instructions Recorded Confirmed Type benazepril 40 mg PO QAM 05/14/18 06/23/18 History diclofenac sodium 75 mg PO BID 05/14/18 06/23/18 History diltiazem HCl 240 mg PO QAM 05/14/18 06/23/18 History gabapentin 300 mg PO TID 05/14/18 06/23/18 History citalopram [Celexa] 40 mg PO QAM 06/06/18 06/23/18 History acetaminophen [Tylenol Extra 1,500 mg PO UD PRN 06/23/18 06/23/18 History Strength] Patient History Medical History UTI (urinary tract infection) (Resolved) Hypertension (Chronic) Sciatica (Chronic) Surgical History History of dilatation and curettage (Resolved) Hernia Social History marital status: Current Living Situation: Alone current occupational status: unemployed Other Information That Helps Us Care for You: No Feels Safe at Home: Yes Safety Concerns: Feels Safe At This Time Smoking Status: Never smoker Do You Dip or Chew Tobacco: No Second Hand Exposure: No Hx Alcohol Use: Yes Alcohol type: wine Alcohol Intake Frequency: other Hx Substance Use: No Beliefs That Will Affect Care: None Communication Ability: Effective Review of Systems Constitutional: + fatigue; no fever and no body aches Eyes: no worsening vision Ear, Nose, Mouth, Throat: no dry mouth Respiratory: no cough and no dyspnea Cardiovascular: no chest pain, no palpitations and no edema Gastrointestinal: + early satiety and + diarrhea/loose stools (pt attributes to colace); no abdominal pain, no nausea and no vomiting Genitourinary (Female): no dysuria, no urinary frequency, no urinary hesitancy, no urinary urgency and no nocturia Musculoskeletal: + back pain, + stiffness and + myalgia Integumentary: no rash and no non-healing lesions Neurologic: no gait abnormality, no unsteadiness, no generalized weakness, no abnormal movements, no abnormal speech and no confusion Psychiatric: no behavioral changes and no anxiety Endocrine: + fatigue Hematologic / Lymphatic: no easy bleeding Physical Exam 2 Vital Signs (Past 24 Hours): Last Vital Signs Temp 36.8 C 06/27/18 07:16 Pulse 75 06/27/18 07:16 Resp 18 06/27/18 07:16 BP 127/76 06/27/18 07:16 Pulse Ox 95 06/27/18 07:16 Constitutional: well developed, well nourished and + obese on RAA& 0 x 3; nad Eyes: EOM intact bilaterally ENMT: Ears: no external ear abnormality Nose: no external nose abnormality Mouth: + dry oral mucous membranes Neck: no nuchal rigidity Respiratory: normal respiratory effort Auscultation: + diminished lung sounds Cardiovascular: RRR, no murmur, no edema (heart sounds distant) Gastrointestinal (Abdomen): Inspection/Auscultation: abdomen normal to inspection and normal bowel sounds Percussion/Palpation: abdomen soft; abdomen nontender Musculoskeletal: Extremities: strength 5/5 throughout Skin: no rashes, warm and dry + pallor Neurologic: rod, fluent speech, no tremor; maneuvers somewhat tentatively for exam Psychiatric: A+Ox3, euthymic affect Genitourinary: no gilliland Results & Data Laboratory Results Abnormal lab results 06/27/18 06/27/18 06/27/18 Range/Units 09:44 09:44 14:34 RBC 3.68 L (4.2-5.4) M/uL Hgb 10.6 L (12.0-16.0) g/dL Hct 34.0 L (37-47) % MCHC 31.2 L (32-36) g/dL RDW Std Deviation 46.4 H (36.4-46.3) fL Immature Gran # (Auto) 0.03 H (0.00-0.02) K/uL Potassium 3.2 L 3.4 L (3.5-5.1) mmol/L Anion Gap 13.0 H (3-11) BUN 20 H 21 H (7-18) mg/dl Creatinine 3.41 H 3.53 H (0.6-1.2) mg/dl BUN/Creatinine Ratio 5.7 L 6.0 L (10-20) Glucose 130 H 136 H (70-99) mg/dl Calcium 8.2 L (8.5-10.1) mg/dl Diagnostic Findings CT abd/pelvis w/ con 06/23 1. Severe destruction of the inferior endplate of L1 and superior endplate of L2 which suggests discitis/osteomyelitis. MRI of the lumbar spine with and without contrast is recommended to evaluate for epidural abscess. Calcifications within the bilateral psoas muscles are likely related to this process. The psoas muscles can be assessed at time of MRI to exclude intramuscular abscess. 2. No acute process within the abdomen or pelvis. No bowel obstruction. Normal appendix. _ (1) Acute renal failure Acute renal failure type: unspecified Qualified Code(s): N17.9 - Acute kidney failure, unspecified
--- NOTE | 2018-06-27 18:28 | Hospitalist Progress Note ---
Date of Service June 27, 2018 Assessment & Plan (1) Discitis of lumbar region: Back pain, possible discitis and osteomyelitis of lumbar spine -CT scan 1. No acute fractures or traumatic subluxations 2. Destruction of the L1-2 endplates. The findings are suspicious for discitis and osteomyelitis. An MRI the lumbar spine is recommended in follow-up. 3. Multifactorial moderate spinal stenosis the L2-3 level, and moderate to severe spinal stenosis the L3-4 level. 4. Multifocal psoas calcifications. -pain control and bowel regimen -patient could not tolerate MRI of the back secondary to pain -patient was evaluated by orthopedic service on 06/24/18 and that treatment at this time is non-operative -as per discussions with infectious disease service, Dr. Gonzales and Dr. Cary , given that patient has discitis with elevated inflammatory markers but absent positive blood culture and lacking MRI evidence as patient reports that she cannot tolerate lying down for the imaging study, and with positive urinanalysis for pansensitive E.coli in the urine, patient advised to continue IV antibiotics for 6 weeks in case there is an infectious process or osteomyelitis from an infection -PICC line placed on right arm on 06/26/18 -since admission, patient has been on Zosyn and Vancomycin from 06/23/18 and on patient is transitioned to Ceftrixone as 2 grams daily for E.coli coverage and to continue Vancomycin -Vancomycin stopped on 06/27/18 due to acute kidney injury and elevated Vancomycin trough levels -continue ceftriaxone Acute kidney injury -creatinine 3.5 -Acute kidney injury from vancomycin -will stop Vancomycin on 06/27/18 and IV fluids of NSS 125 cc/hr, will increase to NSS 150 cc/hr -may have to consider switching to daptomycin at 6mg/kg daily when vancomycin levels decrease and when renal function improves Hypertension -continue home dose diltiazem -will stop KLARISSA inhibitors due to DEJON hypokalemia serum potassium 3.3 on 06/24/18, give IV potassium repletion improved to 3.4 on 06/25/18 and given additional potassium as oral avoid further potassium supplements with the DEJON Morbid obesity with BMI 51.3 -continue PT/OT history of depression -continue celexa DVT ppx: SCDs Code Status: Full Code sister Debbie [phone] Subjective Patient has DEJON from vancomycin patient reports she is making urine. denies chest pain or shortness of breath. denies abdominal pain. no vomiting she was explained that due to acute kidney injury that the plan is to give IV fluids in hospital and to hold off further Vancomycin antibiotic at this time Physical Exam 2 Vital Signs (Past 24 Hours): Last Vital Signs Temp 36.5 C 06/27/18 15:00 Pulse 70 06/27/18 15:00 Resp 18 06/27/18 15:00 BP 126/77 06/27/18 15:00 Pulse Ox 97 06/27/18 15:00 Constitutional: WD/WN, vitals as above + obese Eyes: PERRL, conjunctivae normal, anicteric sclerae ENMT: external ear and nose normal, oropharynx normal Respiratory: normal respiratory effort, lungs clear to auscultation Cardiovascular: RRR, no murmur, no edema Gastrointestinal (Abdomen): normal bowel sounds, soft, nontender, no hepatosplenomegaly Musculoskeletal: Head/Neck/Chest: normocephalic and head atraumatic Neurologic: PERRL, EOMI, accommodation nl, no face palsy, no dysarthria Psychiatric: A+Ox3, euthymic affect
[2018-06-27] MEDS: NORMOSOL-R 1,000 ML IV SCH (20:56)
[2018-06-27 21:58] LABS: Appearance Urine Cloudy (Clear); Bilirubin Urine Negative (Negative); Color Urine Yellow; Glucose Urine UA Negative (Negative); Ketones Urine Negative (Negative); Leukocyte Esterase Urine Negative (Negative); Nitrite Urine Negative (Negative); Protein Urine Negative (Negative); Specific Gravity Urine 1.008 (1.000-1.030); Urobilinogen Urine Negative (Negative)
[2018-06-27 22:20] LABS: Bacteria Urine Automated Negative (Negative); Cast Urine Automated 0 /lpf (0-5); Epithelial Cell Urine Auto >30 /lpf (0-5)
[2018-06-27 22:27] LABS: Creatinine Urine Random 50.3 mg/dl
[2018-06-28] MEDS: HYDROmorphone INJ 0.5 MG/0.5 ML SYR IV PRN ×3 (01:56→20:44)
[2018-06-28] MEDS: NORMOSOL-R 1,000 ML IV SCH ×2 (05:17→15:55)
[2018-06-28 06:47] LABS: BUN Creatinine Ratio 5.9 (10-20); Calcium 8.3 mg/dl (8.5-10.1); Creatinine Clr Calc Pharmacy 23.3 ml/min; Est GFR (African American) 13.5; Est GFR (Non-African American) 11.7; Potassium 3.1 mmol/L (3.5-5.1)
--- NOTE | 2018-06-28 07:28 | Nephrology Progress Note ---
Date of Service June 28, 2018 Assessment & Plan (1) Acute renal failure: baseline creatinine 0.7-0.8; at baseline as recently as 06/25; no labs 06/26 ; then 06/27 w/ creatinine 3.4 trending up fast to 4.0 today; chemistries acceptable as is her volume status. pt w/ hx of recurrent UTI and source is suspected as potential source in her discitis; not oliguric -nonoliguric ATN from vancomycin toxicity +/- from discitis itself; other dx on differential include prerenal process, interstitial nephritis, or less likely cortical necrosis or glomerular disease -urine eos negative; would not repeat -f/u repeat blood cxs -will lower IVF rate to 50 mL hourly -no urgent indication for dialysis but cannot rule out need -needs strict I/O -repeat uacm bland/ not so supportive but does not r/o atn -if no recovery soon or if back pain , will need renal u/s -daily bmp and every other day cbc -cont to avoid nsaids and iv contrast and lisinopril -did give ANOTHER 40 mEq po K x 1 Subjective ongoing back pain but controlled. no voiding c/o, no sob, no edema, some bloating and upset stomach>> did have emesis x 1. no voiding c/o. no rash. no f /c, no focal numbness weakness. Physical Exam 2 Vital Signs (Past 24 Hours): Last Vital Signs Temp 36.8 C 06/27/18 23:10 Pulse 72 06/27/18 23:10 Resp 18 06/27/18 23:10 BP 138/83 06/27/18 23:10 Pulse Ox 97 06/27/18 23:10 Constitutional: well developed, well nourished and + obese on RA A&0 x 3 Eyes: EOM intact bilaterally ENMT: Ears: no external ear abnormality Nose: no external nose abnormality Mouth: + dry oral mucous membranes Neck: no nuchal rigidity Respiratory: normal respiratory effort Auscultation: + diminished lung sounds Cardiovascular: RRR, no murmur, no edema (heart sounds distant) Gastrointestinal (Abdomen): Inspection/Auscultation: abdomen normal to inspection and normal bowel sounds Percussion/Palpation: abdomen soft; abdomen nontender Musculoskeletal: Extremities: strength 5/5 throughout Skin: no rashes, warm and dry + pallor Neurologic: rod, fluent speech Psychiatric: A+Ox3, euthymic affect Results & Data Laboratory Results Abnormal lab results 06/27/18 06/27/18 06/27/18 Range/Units 09:44 09:44 14:34 RBC 3.68 L (4.2-5.4) M/uL Hgb 10.6 L (12.0-16.0) g/dL Hct 34.0 L (37-47) % MCHC 31.2 L (32-36) g/dL RDW Std Deviation 46.4 H (36.4-46.3) fL Immature Gran # (Auto) 0.03 H (0.00-0.02) K/uL Potassium 3.2 L 3.4 L (3.5-5.1) mmol/L Anion Gap 13.0 H (3-11) BUN 20 H 21 H (7-18) mg/dl Creatinine 3.41 H 3.53 H (0.6-1.2) mg/dl BUN/Creatinine Ratio 5.7 L 6.0 L (10-20) Glucose 130 H 136 H (70-99) mg/dl Calcium 8.2 L (8.5-10.1) mg/dl Urine Appearance (Clear) U Epithel Cells (Auto) (0-5) /lpf 06/27/18 06/28/18 Range/Units 21:43 05:53 RBC (4.2-5.4) M/uL Hgb (12.0-16.0) g/dL Hct (37-47) % MCHC (32-36) g/dL RDW Std Deviation (36.4-46.3) fL Immature Gran # (Auto) (0.00-0.02) K/uL Potassium 3.1 L (3.5-5.1) mmol/L Anion Gap (3-11) BUN 23 H (7-18) mg/dl Creatinine 3.96 H D (0.6-1.2) mg/dl BUN/Creatinine Ratio 5.9 L (10-20) Glucose (70-99) mg/dl Calcium 8.3 L (8.5-10.1) mg/dl Urine Appearance Cloudy H (Clear) U Epithel Cells (Auto) >30 H (0-5) /lpf _ (1) Acute renal failure Acute renal failure type: unspecified Qualified Code(s): N17.9 - Acute kidney failure, unspecified
[2018-06-28] MEDS: GABAPENTIN 300 MG CAP PO SCH ×4 (08:55→20:44)
[2018-06-28] MEDS: CITALOPRAM 40 MG TAB PO SCH ×2 (08:55→10:55)
[2018-06-28] MEDS: dilTIAZem HCL 240 MG CAPCR PO SCH ×2 (08:55→13:19)
[2018-06-28] MEDS: POTASSIUM CHLORIDE 20 MEQ TABCR PO STA ×2 (08:56→13:21)
[2018-06-28] MEDS: DOCUSATE SODIUM 100 MG CAP PO SCH ×2 (08:57→20:43)
[2018-06-28] MEDS: SENNA 8.6 MG TAB PO SCH (08:57)
--- NOTE | 2018-06-28 10:04 | Infectious Disease Progress Nt ---
Date of Service June 28, 2018 Assessment & Plan (1) Discitis of lumbar region: no positive blood cultures to guide culture, urine culture growing E. coli but UA with only 1-5 wbc and >30 ep cells suspect contaminant. would continue emperic abx, could change to dapto as this may be earsier to dose in this patient but lack of insurance may make placement difficult so she may need to remain on vanco. hold until level <15. will need 6 weeks IV abx and weekly cbc, cmp, esr, vanco trough - maintain 15-20. Subjective pt had increased vanco level to 40 over weekend, also had acute increase in creat 0.6 on 06/25 to 3.4 on 06/27. vanco on hold, changed to ctx based on urine culture - centeno senstitive e. coli. blood cultures remain negative wbc nml. no plans for OR. Physical Exam 2 Vital Signs (Past 24 Hours): Last Vital Signs Temp 36.7 C 06/28/18 07:55 Pulse 74 06/28/18 07:55 Resp 20 06/28/18 07:55 BP 148/84 H 06/28/18 07:55 Pulse Ox 96 06/28/18 07:55 Results & Data Laboratory Results Microbiology 06/24/18 01:00 Urine,Clean Catch Urine Culture - Final Escherichia coli 06/23/18 17:25 Blood Blood Culture - Preliminary No growth to date. 06/23/18 17:18 Blood Blood Culture - Preliminary No growth to date.
[2018-06-28] MEDS: cefTRIAXone SODIUM 2,000 MG in DEXTROSE 5% 50 ML IV SCH (10:36)
--- NOTE | 2018-06-28 11:08 | Pharmacy Report ---
Pharmacy Abx Dose Short Note - Date of Service June 28, 2018 - Assessment & Plan Assessment 57 year old F with osteomyelitis/discitis on empiric vancomycin and ceftriaxone IV * Day #6 of antimicrobial therapy * BC reported no growth to date Plan Vancomycin * Currently on hold due to supratherapeutic trough level, DEJON * Trough level of 40 mcg/mL drawn on 06/27 @ 0944, random level of 37.4 mcg/mL today @ 0553 * The vancomycin dose due for 06/27 @ 1000 was hung. Pharmacy called to notify RN to d/c the infusion. * Scr continues to trend upward. Repeat random level ordered for 1/30 AM * Patient is not a good candidate for jail vancomycin IV due to drug accumulation with weight of 148.6 kg. Pharmacy will continue to follow and will adjust dose/frequency as necessary. Thank you.
[2018-06-28 14:49] LABS: BUN Creatinine Ratio 5.9 (10-20); Calcium 8.5 mg/dl (8.5-10.1); Creatinine Clr Calc Pharmacy 22.5 ml/min; Est GFR (Non-African American) 11.2; Potassium 3.1 mmol/L (3.5-5.1)
--- NOTE | 2018-06-28 17:53 | Hospitalist Progress Note ---
Date of Service June 28, 2018 Assessment & Plan (1) Discitis of lumbar region: Back pain, possible discitis and osteomyelitis of lumbar spine -CT scan 1. No acute fractures or traumatic subluxations 2. Destruction of the L1-2 endplates. The findings are suspicious for discitis and osteomyelitis. An MRI the lumbar spine is recommended in follow-up. 3. Multifactorial moderate spinal stenosis the L2-3 level, and moderate to severe spinal stenosis the L3-4 level. 4. Multifocal psoas calcifications. -pain control and bowel regimen -patient could not tolerate MRI of the back secondary to pain -patient was evaluated by orthopedic service on 06/24/18 and that treatment at this time is non-operative -as per discussions with infectious disease service, Dr. Gonzales and Dr. Cary , given that patient has discitis with elevated inflammatory markers but absent positive blood culture and lacking MRI evidence as patient reports that she cannot tolerate lying down for the imaging study, and with positive urinanalysis for pansensitive E.coli in the urine, patient advised to continue IV antibiotics for 6 weeks in case there is an infectious process or osteomyelitis from an infection -PICC line placed on right arm on 06/26/18 -since admission, patient has been on Zosyn and Vancomycin from 06/23/18 and on patient is transitioned to Ceftrixone as 2 grams daily for E.coli coverage and to continue Vancomycin -Vancomycin stopped on 06/27/18 due to acute kidney injury and elevated Vancomycin trough levels -continue ceftriaxone Acute kidney injury -creatinine 4.1 -Acute kidney injury from vancomycin -have stopped Vancomycin on 06/27/18 and IV fluids given -may have to consider switching to daptomycin at 6mg/kg daily when vancomycin levels decrease and when renal function improves -will wait until vancomycin level less than 15; then hospitalist can decide on daptomycin alternative -continue IV fluids currently normosol 100 cc/hr Hypertension -continue home dose diltiazem -stopped KLARISSA inhibitors due to DEJON hypokalemia serum potassium 3.3 on 06/24/18, give IV potassium repletion improved to 3.4 on 06/25/18 and given additional potassium as oral serum potassium remains 3.1 from repeated 06/28/17 labs despite nephrology oral potassium ordered will caution against aggressive potassium repletion given acute kidney injury will retain excessive potassium in serum Morbid obesity with BMI 51.3 -continue PT/OT history of depression -continue celexa DVT ppx: SCDs Code Status: Full Code sister Debbie [phone] Subjective Patient has DEJON from vancomycin patient reports she is making urine. had 2 episodes of vomiting today but resolved denies chest pain or shortness of breath. denies abdominal pain. Physical Exam 2 Vital Signs (Past 24 Hours): Last Vital Signs Temp 36.5 C 06/28/18 15:15 Pulse 74 06/28/18 15:15 Resp 20 06/28/18 15:15 BP 147/79 H 06/28/18 15:15 Pulse Ox 95 06/28/18 15:15 Constitutional: WD/WN, vitals as above + obese Eyes: PERRL, conjunctivae normal, anicteric sclerae ENMT: external ear and nose normal, oropharynx normal Respiratory: normal respiratory effort, lungs clear to auscultation Cardiovascular: RRR, no murmur, no edema Gastrointestinal (Abdomen): normal bowel sounds, soft, nontender, no hepatosplenomegaly Musculoskeletal: Head/Neck/Chest: normocephalic and head atraumatic Neurologic: PERRL, EOMI, accommodation nl, no face palsy, no dysarthria Psychiatric: A+Ox3, euthymic affect
[2018-06-28] MEDS ORDERED: POTASSIUM CHLORIDE PWD 20 MEQ PACK PO ONE (19:45)
[2018-06-29] MEDS: NORMOSOL-R 1,000 ML IV SCH ×3 (02:14→21:44)
--- NOTE | 2018-06-29 09:07 | Progress Note ---
DATE: 06/28/2018 The time of rounding was 06/28/2017 at approximately 3 o'clock in the afternoon. I saw [facility] yesterday afternoon at approximately 3 o'clock. She was relatively comfortable. I think a lot of her back pain can be stenosis pain along with the severely degenerative disk at L1-L2. I am pretty much convinced that it could be a diskitis, which she is being treated for including antibiotics and may be suggestive of severely degenerative segment of the spine. I have seen both in this clinical scenario. In any event, it is nonoperative although it does modify how she is treated long-term. If at all possible, I think an MRI scan would be needed at least to give us some more clarity on whether it is diskitis or not but then I would also go on the clinical suspicion of all the providers. I will continue to follow, probably every 48 hours. We are not considering surgery on this patient for this issue.
[2018-06-29] MEDS: dilTIAZem HCL 240 MG CAPCR PO SCH (09:17)
[2018-06-29] MEDS: CITALOPRAM 40 MG TAB PO SCH (09:17)
[2018-06-29] MEDS: HYDROmorphone INJ 0.5 MG/0.5 ML SYR IV PRN ×3 (09:18→21:45)
[2018-06-29] MEDS: SENNA 8.6 MG TAB PO SCH (09:18)
[2018-06-29] MEDS: GABAPENTIN 300 MG CAP PO SCH ×3 (09:18→20:20)
[2018-06-29] MEDS: DOCUSATE SODIUM 100 MG CAP PO SCH ×2 (09:18→20:21)
[2018-06-29 09:31] LABS: BUN Creatinine Ratio 6.1 (10-20); Calcium 8.6 mg/dl (8.5-10.1); Creatinine Clr Calc Pharmacy 21.4 ml/min; Est GFR (African American) 12.2; Est GFR (Non-African American) 10.5; Potassium 3.4 mmol/L (3.5-5.1)
[2018-06-29] MEDS: cefTRIAXone SODIUM 2,000 MG in DEXTROSE 5% 50 ML IV SCH (10:34)
--- NOTE | 2018-06-29 10:56 | Infectious Disease Progress Nt ---
Date of Service June 29, 2018 Assessment & Plan (1) Discitis of lumbar region: no positive blood cultures to guide culture, urine culture growing E. coli but UA with only 1-5 wbc and >30 ep cells suspect contaminant. would continue emperic abx, could change to dapto as this may be earsier to dose in this patient but lack of insurance may make placement difficult so she may need to remain on vanco. hold until level <15. will need 6 weeks IV abx and weekly cbc, cmp, esr, vanco trough - maintain 15-20. Her current Vanco level is 36 and her vancomycin remains on hold. I would not re-dose with vancomycin until her level is less than 15. Subjective The patient remains on empiric antibiotics. She is on Rocephin as well as vancomycin. This has been on hold for several days as she did have Super therapeutic dosing. Her random vanc level today is down to 36. Her creatinine is slightly elevated 4.3. She remains afebrile. Her blood cultures are negative and final. She did have re-evaluation by Orthopedics and they have again suggested MRI but she has declined this in the past due to concern of not being able to lie flat for the duration of her MRI. Physical Exam 2 Vital Signs (Past 24 Hours): Last Vital Signs Temp 36.7 C 06/29/18 08:01 Pulse 74 06/29/18 09:47 Resp 18 06/29/18 08:01 BP 138/81 06/29/18 09:47 Pulse Ox 96 06/29/18 08:01 Results & Data Laboratory Results Microbiology 06/23/18 17:25 Blood Blood Culture - Final No growth 06/23/18 17:18 Blood Blood Culture - Final No growth 06/24/18 01:00 Urine,Clean Catch Urine Culture - Final Escherichia coli
[2018-06-29] MEDS ORDERED: POTASSIUM CHLORIDE 20 MEQ TABCR PO ONE (16:24)
--- NOTE | 2018-06-29 16:24 | Nephrology Progress Note ---
Date of Service June 29, 2018 Assessment & Plan (1) Acute renal failure: baseline creatinine 0.7-0.8; at baseline as recently as 06/25; no labs 06/26 ; then 06/27 w/ creatinine 3.4 trending up fast at first now w/ uptrend slowing to peak at 4.3; chemistries acceptable as is her volume status. pt w/ hx of recurrent UTI and source is suspected as potential source in her discitis; not oliguric; urine eos negative x1 -repeat uacm bland/ not so supportive but does not r/o atn -nonoliguric ATN from vancomycin toxicity +/- from discitis itself; other dx on differential include prerenal process, interstitial nephritis, or less likely cortical necrosis or glomerular disease; 06/23 cxs blood ngtd ->>rate of rise in creat slowing a bit > should plateau soon -no urgent indication for dialysis but cannot rule out need -cont strict I/O -daily bmp and every other day cbc -cont to avoid nsaids and iv contrast and lisinopril -did give yet ANOTHER 40 mEq po K x 1 Subjective had large bm; no sob, was out of bed in therapy chair today; no rash; still tired; no f; still touchy about appetite Physical Exam 2 Vital Signs (Past 24 Hours): Last Vital Signs Temp 36.6 C 06/29/18 15:38 Pulse 66 06/29/18 15:38 Resp 18 06/29/18 15:38 BP 136/80 06/29/18 15:38 Pulse Ox 98 06/29/18 15:38 Constitutional: well developed, well nourished and + obese on ra sitting in bed A&0 x3 Eyes: EOM intact bilaterally ENMT: Ears: no external ear abnormality Nose: no external nose abnormality Mouth: + dry oral mucous membranes Neck: no nuchal rigidity Respiratory: normal respiratory effort Auscultation: + diminished lung sounds (very) Cardiovascular: RRR, no murmur, no edema (heart sounds distant) Gastrointestinal (Abdomen): Inspection/Auscultation: abdomen normal to inspection and + high-pitched sounds Percussion/Palpation: abdomen soft; abdomen nontender Musculoskeletal: Extremities: strength 5/5 throughout Skin: no rashes, warm and dry + pallor Neurologic: rod, fluent speech Psychiatric: A+Ox3, euthymic affect Genitourinary: no gilliland Results & Data Laboratory Results Abnormal lab results 06/29/18 Range/Units 08:14 Potassium 3.4 L (3.5-5.1) mmol/L Anion Gap 12.0 H (3-11) BUN 27 H (7-18) mg/dl Creatinine 4.31 H (0.6-1.2) mg/dl BUN/Creatinine Ratio 6.1 L (10-20) _ (1) Acute renal failure Acute renal failure type: unspecified Qualified Code(s): N17.9 - Acute kidney failure, unspecified
[2018-06-29] MEDS ORDERED: POTASSIUM CHLORIDE PWD 20 MEQ PACK PO ONE (17:07)
--- NOTE | 2018-06-29 18:34 | Hospitalist Progress Note ---
Date of Service June 29, 2018 Assessment & Plan (1) Discitis of lumbar region: Back pain, possible discitis and osteomyelitis of lumbar spine -CT scan 1. No acute fractures or traumatic subluxations 2. Destruction of the L1-2 endplates. The findings are suspicious for discitis and osteomyelitis. An MRI the lumbar spine is recommended in follow-up. 3. Multifactorial moderate spinal stenosis the L2-3 level, and moderate to severe spinal stenosis the L3-4 level. 4. Multifocal psoas calcifications. -pain control and bowel regimen -patient could not tolerate MRI of the back secondary to pain -patient was evaluated by orthopedic service on 06/24/18 and that treatment at this time is non-operative -as per discussions with infectious disease service, Dr. Gonzales and Dr. Cary , given that patient has discitis with elevated inflammatory markers but absent positive blood culture and lacking MRI evidence as patient reports that she cannot tolerate lying down for the imaging study, and with positive urinanalysis for pansensitive E.coli in the urine, patient advised to continue IV antibiotics for 6 weeks in case there is an infectious process or osteomyelitis from an infection -PICC line placed on right arm on 06/26/18 -since admission, patient has been on Zosyn and Vancomycin from 06/23/18 and on patient is transitioned to Ceftrixone as 2 grams daily for E.coli coverage and to continue Vancomycin -Vancomycin stopped on 06/27/18 due to acute kidney injury and elevated Vancomycin trough levels -continue ceftriaxone Acute kidney injury from vancomycin -DEJON noted on 06/27/18, creatinine 4.3 today -have stopped Vancomycin on 06/27/18 and IV fluids given -may have to consider switching to daptomycin at 6mg/kg daily when vancomycin levels decrease and when renal function improves -will wait until vancomycin level less than 15; then hospitalist can decide on daptomycin alternative -current Vanc level above 30 -continue IV fluids as normosol Hypertension -continue home dose diltiazem -have stopped KLARISSA inhibitors due to DEJON hypokalemia serum potassium 3.3 on 06/24/18, give IV potassium repletion improved to 3.4 on 06/25/18 and given additional potassium as oral serum potassium remains 3.1 from repeated 06/28/17 labs despite nephrology oral potassium ordered will caution against aggressive potassium repletion given acute kidney injury will retain excessive potassium in serum seum potassium 3.4 today Morbid obesity with BMI 51.3 -continue PT/OT history of depression -continue celexa DVT ppx: SCDs Code Status: Full Code sister Debbie [phone] Subjective Patient has DEJON from vancomycin patient reports she is making urine. denies chest pain or shortness of breath. denies abdominal pain. denies vomiting today Physical Exam 2 Vital Signs (Past 24 Hours): Last Vital Signs Temp 36.6 C 06/29/18 15:38 Pulse 66 06/29/18 15:38 Resp 18 06/29/18 15:38 BP 136/80 06/29/18 15:38 Pulse Ox 98 06/29/18 15:38 Constitutional: WD/WN, vitals as above + obese Eyes: PERRL, conjunctivae normal, anicteric sclerae ENMT: external ear and nose normal, oropharynx normal Respiratory: normal respiratory effort, lungs clear to auscultation Cardiovascular: RRR, no murmur, no edema Gastrointestinal (Abdomen): normal bowel sounds, soft, nontender, no hepatosplenomegaly Musculoskeletal: Head/Neck/Chest: normocephalic and head atraumatic Neurologic: PERRL, EOMI, accommodation nl, no face palsy, no dysarthria Psychiatric: A+Ox3, euthymic affect
[2018-06-30] MEDS: HYDROmorphone INJ 0.5 MG/0.5 ML SYR IV PRN ×3 (04:06→17:52)
[2018-06-30] MEDS: NORMOSOL-R 1,000 ML IV SCH ×3 (05:39→21:30)
[2018-06-30 06:38] LABS: BUN Creatinine Ratio 6.6 (10-20); Calcium 8.2 mg/dl (8.5-10.1); Creatinine Clr Calc Pharmacy 20.7 ml/min; Est GFR (African American) 11.7; Est GFR (Non-African American) 10.1; Potassium 3.6 mmol/L (3.5-5.1)
--- NOTE | 2018-06-30 10:01 | Nephrology Progress Note ---
Date of Service June 30, 2018 Assessment & Plan (1) Acute renal failure: baseline creatinine 0.7-0.8; at baseline as recently as 06/25; no labs 06/26 ; then 06/27 w/ creatinine 3.4 trending up fast at first now w/ uptrend ongoing to 4.5 today; chemistries acceptable as is her volume status. pt w/ hx of recurrent UTI and source is suspected as potential source in her discitis; not oliguric; urine eos negative x1 -repeat uacm bland/ not so supportive but does not r/o atn -nonoliguric ATN from vancomycin toxicity +/- from discitis itself; other dx on differential include prerenal process, interstitial nephritis, or less likely cortical necrosis or glomerular disease; 06/23 cxs blood ngtd ->>rate of rise in creat slowing a bit > should plateau soon -no urgent indication for dialysis but cannot rule out need -cont strict I/O -will lower IVF to 50 mL/hr -daily bmp and every other day cbc -cont to avoid nsaids and iv contrast and lisinopril -will give ANOTHER 40 mEq po K x 1 Subjective doing PT at time of eval and w/ exquisite low back pain just to dangle feet on side of bed or stand. still belching, occasional N. + BM. no sob. no edema. diminished po, no F. no voiding c/o except mild incontinence bladder. no rash. no focal numbness/weakness Physical Exam 2 Vital Signs (Past 24 Hours): Last Vital Signs Temp 36.9 C 06/30/18 07:13 Pulse 69 06/30/18 07:13 Resp 16 06/30/18 07:13 BP 137/80 06/30/18 07:13 Pulse Ox 95 06/30/18 07:13 Constitutional: well developed, well nourished and + obese on RA, mild distress w/ maneuvering d/t back pain Eyes: EOM intact bilaterally ENMT: Ears: no external ear abnormality Nose: no external nose abnormality Mouth: + dry oral mucous membranes Neck: no nuchal rigidity Respiratory: normal respiratory effort Auscultation: + diminished lung sounds Cardiovascular: RRR, no murmur, no edema (heart sounds distant) Gastrointestinal (Abdomen): Inspection/Auscultation: abdomen normal to inspection and normal bowel sounds Percussion/Palpation: abdomen soft; abdomen nontender Musculoskeletal: Extremities: strength 5/5 throughout Skin: no rashes, warm and dry + pallor Neurologic: rod, fluent speech Psychiatric: A+Ox3, euthymic affect Results & Data Laboratory Results Abnormal lab results 06/30/18 Range/Units 05:43 BUN 29 H (7-18) mg/dl Creatinine 4.45 H (0.6-1.2) mg/dl BUN/Creatinine Ratio 6.6 L (10-20) Calcium 8.2 L (8.5-10.1) mg/dl _ (1) Acute renal failure Acute renal failure type: unspecified Qualified Code(s): N17.9 - Acute kidney failure, unspecified
[2018-06-30] MEDS: GABAPENTIN 300 MG CAP PO SCH ×3 (10:24→21:04)
[2018-06-30] MEDS: CITALOPRAM 40 MG TAB PO SCH (10:24)
[2018-06-30] MEDS: SENNA 8.6 MG TAB PO SCH (10:24)
[2018-06-30] MEDS: DOCUSATE SODIUM 100 MG CAP PO SCH ×2 (10:24→20:06)
[2018-06-30] MEDS: dilTIAZem HCL 240 MG CAPCR PO SCH (10:25)
[2018-06-30] MEDS: cefTRIAXone SODIUM 2,000 MG in DEXTROSE 5% 50 ML IV SCH (10:26)
--- NOTE | 2018-06-30 10:41 | Infectious Disease Progress Nt ---
Date of Service June 30, 2018 Assessment & Plan (1) Discitis of lumbar region: no positive blood cultures to guide culture, urine culture growing E. coli but UA with only 1-5 wbc and >30 ep cells suspect contaminant. would continue emperic abx, could change to dapto as this may be earsier to dose in this patient but lack of insurance may make placement difficult so she may need to remain on vanco. hold until level <15. will need 6 weeks IV abx and weekly cbc, cmp, esr, vanco trough - maintain 15-20. Her current Vanco level is 30and her vancomycin remains on hold. I would not re-dose with vancomycin until her level is less than 15. Subjective Creatinine remains elevated. Today it is 4.4. Vanco level has decreased from 36-30. The patient remains afebrile. She remains on Rocephin. Vanc remains on hold due to supratherapeutic levels. Blood cultures are negative and final. There is no new micro for review. Physical Exam 2 Vital Signs (Past 24 Hours): Last Vital Signs Temp 36.9 C 06/30/18 07:13 Pulse 68 06/30/18 10:29 Resp 16 06/30/18 07:13 BP 155/81 H 06/30/18 10:29 Pulse Ox 95 06/30/18 07:13 Results & Data Laboratory Results Microbiology 06/23/18 17:25 Blood Blood Culture - Final No growth 06/23/18 17:18 Blood Blood Culture - Final No growth 06/24/18 01:00 Urine,Clean Catch Urine Culture - Final Escherichia coli
--- NOTE | 2018-06-30 11:25 | Pharmacy Report ---
Pharmacy Abx Dose Short Note - Date of Service June 30, 2018 - Assessment & Plan Assessment 57 year old F receiving vancomycin and ceftriaxone for treatment of suspected discitis. Day # 8 of antimicrobial therapy. Plan Vancomycin * Last dose of vancomycin administered on 06/27 at 1049 * Random vancomycin level obtained this morning at 0543 and resulted as 30.5 ( down from 36 - approximately 22 hours prior) * New PK parameters: ke: 0.008, t1/2: 86 hours, Scr: remains elevated at 4.45 * Unlikely for vanco random level to fall to 15 within the next two days. Will order random vancomycin level on Thursday morning to reassess clearance. Will re- dose once within therapeutic range. * BMP already ordered for tomorrow morning. * Patient remains afebrile. Ceftriaxone * Ceftriaxone 2 g IV q24h will be continued for now per ID. Dose appropriate. Culture data: blood cultures x 2: negative (final), urine culture: E.coli: 50, 000 CFU/mL (centeno-sensitive) Pharmacy will continue to follow and will adjust dose/frequency as necessary. Thank you.
[2018-06-30] MEDS ORDERED: POTASSIUM CHLORIDE PWD 20 MEQ PACK PO ONE (11:40)
[2018-06-30] MEDS ORDERED: predniSONE 20 MG TAB PO ONE (15:15)
--- NOTE | 2018-06-30 17:19 | Hospitalist Progress Note ---
Date of Service June 30, 2018 Assessment & Plan (1) Discitis of lumbar region: Back pain, possible discitis and osteomyelitis of lumbar spine Per Dr Escalera's notes: -CT scan 1. No acute fractures or traumatic subluxations 2. Destruction of the L1-2 endplates. The findings are suspicious for discitis and osteomyelitis. An MRI the lumbar spine is recommended in follow-up. 3. Multifactorial moderate spinal stenosis the L2-3 level, and moderate to severe spinal stenosis the L3-4 level. 4. Multifocal psoas calcifications. -pain control and bowel regimen -patient could not tolerate MRI of the back secondary to pain -patient was evaluated by orthopedic service on 06/24/18 and that treatment at this time is non-operative -as per discussions with infectious disease service, Dr. Gonzales and Dr. Cary , given that patient has discitis with elevated inflammatory markers but absent positive blood culture and lacking MRI evidence as patient reports that she cannot tolerate lying down for the imaging study, and with positive urinanalysis for pansensitive E.coli in the urine, patient advised to continue IV antibiotics for 6 weeks in case there is an infectious process or osteomyelitis from an infection -PICC line placed on right arm on 06/26/18 -since admission, patient has been on Zosyn and Vancomycin from 06/23/18 and on patient is transitioned to Ceftrixone as 2 grams daily for E.coli coverage and to continue Vancomycin -Vancomycin stopped on 06/27/18 due to acute kidney injury and elevated Vancomycin trough levels -- continue Ceftri IV Vanco level 30 -- will add Prednisone to improve significant back pain Acute kidney injury from vancomycin -DEJON noted on 06/27/18, -have stopped Vancomycin on 06/27/18 and IV fluids given - crea 4.45 - Vanco level 30 on IV fluids appreciate Nephro recommendations Hypertension -continue home dose diltiazem -have stopped KLARISSA inhibitors due to DEJON Morbid obesity with BMI 51.3 -continue PT/OT history of depression -continue celexa DVT ppx: SCDs Code Status: Full Code sister Debbie [phone] Subjective ff up for lumbar discitis seen resting in bed, not in distress was having significant pain this morning sharp, pain bilateral lateral aspects of the lower extremities- shooting up to her back denies chest pain, dyspnea, palpitations, dizziness no problems voiding no other symptoms Physical Exam 2 Vital Signs (Past 24 Hours): Last Vital Signs Temp 36.8 C 06/30/18 14:47 Pulse 58 L 06/30/18 14:47 Resp 18 06/30/18 14:47 BP 103/66 06/30/18 14:47 Pulse Ox 95 06/30/18 14:47 Physical Exam: General- oriented x 3, not in distress, speaks in sentences with no effort or accessory muscle use Eyes- anicteric Neck- no JVD Lungs- clear breath sounds bilaterally, no rales/wheezes Heart- normal rate, regular rhythm; no murmurs Abdomen- normal bowel sounds, nondistended, soft, nontender Extremities- no pretibial edema, no calf tenderness Neuro- alert, oriented x 3; no gross focal neurologic deficits Skin- warm & dry Results & Data Laboratory Results Laboratory Results - last 24 hr 06/30/18 06/30/18 05:43 05:43 Sodium 140 Potassium 3.6 Chloride 106 Carbon Dioxide 26 Anion Gap 8.0 BUN 29 H Creatinine 4.45 H Est Cr Clr Drug Dosing 20.7 Est GFR ( Amer) 11.7 Est GFR (Non-Af Amer) 10.1 BUN/Creatinine Ratio 6.6 L Glucose 92 Calcium 8.2 L Random Vancomycin 30.5
[2018-06-30 19:01] LABS: INR 1.1 (0.9-1.1); Prothrombin Time 11.1 Seconds (9.0-12.0)
[2018-06-30] MEDS: HEPARIN SOD 5,000 UNIT/0.5 ML VIAL SQ SCH (21:29)
[2018-07-01] MEDS: NORMOSOL-R 1,000 ML IV SCH (05:13)
[2018-07-01] MEDS: HEPARIN SOD 5,000 UNIT/0.5 ML VIAL SQ SCH ×3 (05:30→20:57)
[2018-07-01] MEDS: HYDROmorphone INJ 0.5 MG/0.5 ML SYR IV PRN ×2 (05:32→18:00)
[2018-07-01 06:39] LABS: Calcium 8.6 mg/dl (8.5-10.1); Est GFR (African American) 12.6; Est GFR (Non-African American) 10.9; Potassium 4.3 mmol/L (3.5-5.1)
--- NOTE | 2018-07-01 08:13 | Nephrology Progress Note ---
Date of Service July 01, 2018 Assessment & Plan (1) Acute renal failure: baseline creatinine 0.7-0.8; at baseline as recently as 06/25; no labs 06/26 ; then 06/27 w/ creatinine 3.4 trending up fast at first peaked on 06/30 at 4.5, down to 4.2 today; chemistries acceptable as is her volume status. pt w/ hx of recurrent UTI and source is suspected as potential source in her discitis; not oliguric; urine eos negative x1 -repeat uacm bland/ not so supportive but does not r/o atn -nonoliguric ATN from vancomycin toxicity +/- from discitis itself ->>would want to see 3 straight days down trend in creat before comfortably calling her as recovering -no urgent indication for dialysis but cannot rule out need -cont strict I/O ->>stopped IVF -daily bmp and every other day cbc -cont to avoid nsaids and iv contrast and lisinopril -no K supplementation needed today Subjective diarrhea and sore butt w/ this. heel sores; denies voiding c/o. states "legs won 't work right" no sob, no N no edema some discouragement Physical Exam 2 Vital Signs (Past 24 Hours): Last Vital Signs Temp 37.0 C 06/30/18 23:03 Pulse 74 06/30/18 23:03 Resp 16 06/30/18 23:03 BP 159/91 H 06/30/18 23:03 Pulse Ox 92 06/30/18 23:03 Constitutional: well developed, well nourished and + obese in bed on RA, maneuvers w/ effort for exam Eyes: EOM intact bilaterally ENMT: Ears: no external ear abnormality Nose: no external nose abnormality Mouth: + dry oral mucous membranes Neck: no nuchal rigidity Respiratory: normal respiratory effort Auscultation: + diminished lung sounds Cardiovascular: RRR, no murmur, no edema (heart sounds distant) Gastrointestinal (Abdomen): Inspection/Auscultation: abdomen normal to inspection and normal bowel sounds Percussion/Palpation: abdomen soft; abdomen nontender Musculoskeletal: Extremities: strength 5/5 throughout Skin: no rashes, warm and dry + pallor heel sores dressed Neurologic: rod, fluent speech, limited maneuvering Psychiatric: Orientation: alert and oriented x 3 Affect: + depressed affect Results & Data Laboratory Results Abnormal lab results 07/01/18 Range/Units 05:35 BUN 29 H (7-18) mg/dl Creatinine 4.19 H (0.6-1.2) mg/dl BUN/Creatinine Ratio 7.0 L (10-20) Glucose 119 H (70-99) mg/dl _ (1) Acute renal failure Acute renal failure type: unspecified Qualified Code(s): N17.9 - Acute kidney failure, unspecified
[2018-07-01] MEDS: DOCUSATE SODIUM 100 MG CAP PO SCH ×2 (08:14→20:29)
[2018-07-01] MEDS: SENNA 8.6 MG TAB PO SCH (08:14)
[2018-07-01] MEDS: GABAPENTIN 300 MG CAP PO SCH ×3 (08:24→20:29)
[2018-07-01] MEDS: CITALOPRAM 40 MG TAB PO SCH (08:24)
[2018-07-01] MEDS: dilTIAZem HCL 240 MG CAPCR PO SCH (08:25)
--- NOTE | 2018-07-01 08:29 | Orthopedic Progress Note ---
Date of Service July 01, 2018 Assessment & Plan (1) Acute osteomyelitis of lumbar spine: Subjective Patient seen on rounds this morning no subjective complaints no chest pain shortness of breath pain controlled no calf tenderness. Physical Exam 2 Vital Signs (Past 24 Hours): Last Vital Signs Temp 36.6 C 07/01/18 08:20 Pulse 75 07/01/18 08:20 Resp 16 07/01/18 08:20 BP 137/73 07/01/18 08:20 Pulse Ox 97 07/01/18 08:20 Physical Exam: Patient had no neurological deficits. Lung sounds clear no calf tenderness deficits with full active flexion extension of the spine.
--- NOTE | 2018-07-01 10:01 | Operative Report ---
Post Operative Report Surgeon Luis De La Rosa DO Description of Procedure Patient was taken to the operating room placed in a prone position. Was prepped draped sterile with Betadine and alcohol. Formal timeout was taken in the operating room all people agreed with the procedure. Made a skin incision followed by a fascial and skin incision and through skin. We carefully dissected the spinal canal formal foraminotomies and partial facetectomies. We meticulously dissected the spinal canal did not appear to be any injuries to the dural structures or the nerve roots involved. Is very pleased with the decompression portion of the procedure. Then went onto the stabilization portion of the procedure. I felt that the patient was unstable with a low-grade spondylolisthesis. I felt that pedicle screw instrumentation was required along with allograft and autograft. Using fluoroscopic guidance and anatomic landmarks we safely got pedicle screws the vertebral bodies at lumbar #4 and L5. Screw was approximately 45 mm in length and 6.5 mm in diameter. We then went on to the interbody portion of the procedure. We safely retracted the dural structures and nerve root in a medial direction exposing the disc interspace. We did a complete discectomy at the L4-5 level lumbar spine. I was pleased with the cleanout of the entire disc. Martin Ch is a expert at discharge management I attest to the content of the Intraoperative Record and any orders documented therein. Any exceptions are noted below.
[2018-07-01] MEDS: cefTRIAXone SODIUM 2,000 MG in DEXTROSE 5% 50 ML IV SCH (10:09)
[2018-07-01] MEDS: ACETAMINOPHEN 65 ML IV SCH ×2 (13:10→20:27)
--- NOTE | 2018-07-01 15:26 | Hospitalist Progress Note ---
Date of Service July 01, 2018 Assessment & Plan (1) Discitis of lumbar region: Back pain, possible discitis and osteomyelitis of lumbar spine Per Dr Escalera's notes: -CT scan 1. No acute fractures or traumatic subluxations 2. Destruction of the L1-2 endplates. The findings are suspicious for discitis and osteomyelitis. An MRI the lumbar spine is recommended in follow-up. 3. Multifactorial moderate spinal stenosis the L2-3 level, and moderate to severe spinal stenosis the L3-4 level. 4. Multifocal psoas calcifications. -pain control and bowel regimen -patient could not tolerate MRI of the back secondary to pain -patient was evaluated by orthopedic service on 06/24/18 and that treatment at this time is non-operative -as per discussions with infectious disease service, Dr. Gonzales and Dr. Cary , given that patient has discitis with elevated inflammatory markers but absent positive blood culture and lacking MRI evidence as patient reports that she cannot tolerate lying down for the imaging study, and with positive urinanalysis for pansensitive E.coli in the urine, patient advised to continue IV antibiotics for 6 weeks in case there is an infectious process or osteomyelitis from an infection -PICC line placed on right arm on 06/26/18 -since admission, patient has been on Zosyn and Vancomycin from 06/23/18 and on patient is transitioned to Ceftrixone as 2 grams daily for E.coli coverage and to continue Vancomycin -Vancomycin stopped on 06/27/18 due to acute kidney injury and elevated Vancomycin trough levels -- continue Ceftri IV Vanco level 30 as of 06/30 -- added Prednisone, Ofirmev 650mg IV q8 for better control of back and lower extremity pain Acute kidney injury from vancomycin -DEJON noted on 06/27/18, -have stopped Vancomycin on 06/27/18 and IV fluids given - crea slightly better today, 4.1 - Vanco level 30 - continue to monitor crea appreciate Nephro recommendations Diarrhea - check C diff clear liquid diet for now Hypertension -continue home dose diltiazem -have stopped KLARISSA inhibitors due to DEJON Morbid obesity with BMI 51.3 -continue PT/OT history of depression -continue celexa DVT ppx: Heparin SC Code Status: Full Code sister Debbie [phone] Disposition pending PT/OT in progress may need Rehab Subjective ff up for lumbar discitis, acute renal failure seen resting in bed, watching tv not in distress sat at the edge of the bed today, tolerated better states pain is slightly better today reports diarrhea yesterday, 1 loose BM this morning denies abdominal pain, nausea no other symptoms Physical Exam 2 Vital Signs (Past 24 Hours): Last Vital Signs Temp 36.5 C 07/01/18 15:24 Pulse 70 07/01/18 15:24 Resp 17 07/01/18 15:24 BP 155/73 H 07/01/18 15:24 Pulse Ox 99 07/01/18 15:24 Physical Exam: General- oriented x 3, not in distress, speaks in sentences with no effort or accessory muscle use Eyes- anicteric Neck- no JVD Lungs- clear BS BL, no rales Heart- normal rate, regular rhythm; no murmurs Abdomen- normal bowel sounds, nondistended, soft, nontender Extremities- no pretibial edema, no calf tenderness Neuro- alert, oriented x 3; no gross focal neurologic deficits Skin- warm & dry Results & Data Laboratory Results Laboratory Results - last 24 hr 06/30/18 07/01/18 18:41 05:35 PT 11.1 INR 1.1 Sodium 138 Potassium 4.3 D Chloride 106 Carbon Dioxide 23 Anion Gap 9.0 BUN 29 H Creatinine 4.19 H Est Cr Clr Drug Dosing 22.0 Est GFR ( Amer) 12.6 Est GFR (Non-Af Amer) 10.9 BUN/Creatinine Ratio 7.0 L Glucose 119 H Calcium 8.6
[2018-07-02] MEDS: HYDROmorphone INJ 0.5 MG/0.5 ML SYR IV PRN ×3 (01:42→17:34)
[2018-07-02] MEDS: ACETAMINOPHEN 65 ML IV SCH ×3 (04:27→21:06)
[2018-07-02] MEDS: HEPARIN SOD 5,000 UNIT/0.5 ML VIAL SQ SCH ×3 (05:49→21:06)
[2018-07-02 06:13] LABS: INR 1.1 (0.9-1.1); Prothrombin Time 11.1 Seconds (9.0-12.0)
[2018-07-02 06:31] LABS: BUN Creatinine Ratio 7.8 (10-20); Calcium 8.5 mg/dl (8.5-10.1); Creatinine Clr Calc Pharmacy 21.6 ml/min; Est GFR (African American) 12.4; Est GFR (Non-African American) 10.7; Potassium 3.8 mmol/L (3.5-5.1)
--- NOTE | 2018-07-02 07:44 | Nephrology Progress Note ---
Date of Service July 02, 2018 Assessment & Plan (1) Acute renal failure: baseline creatinine 0.7-0.8; at baseline as recently as 06/25; no labs 06/26 ; then 06/27 w/ creatinine 3.4 trending up fast at first peaked on 06/30 at 4.5, down to 4.2 today; chemistries acceptable as is her volume status. pt w/ hx of recurrent UTI and source is suspected as potential source in her discitis; not oliguric; urine eos negative x1 -repeat uacm bland/ not so supportive but does not r/o atn -nonoliguric ATN from vancomycin toxicity +/- from discitis itself ->>would want to see 3 straight days down trend in creat before comfortably calling her as recovering -no urgent indication for dialysis but cannot rule out need -cont strict I/O ->>stopped IVF -daily bmp and every other day cbc -cont to avoid nsaids and iv contrast and lisinopril -no K supplementation needed today >>>reasonable next 1-2 days from renal standpoint to d/c assuming labs tomorrow am no worse. needs bmp weekly x 4; needs appt [facility] in 4 wks - we will arrange Subjective eating regular diet - happy about that. also w/ some diarrhea. no voiding c/ o. likely for d/c to rehab. no edema. no sob. no n/v. no chest pain plapitations. no rash Physical Exam 2 Vital Signs (Past 24 Hours): Last Vital Signs Temp 36.6 C 07/01/18 22:49 Pulse 65 07/01/18 22:49 Resp 14 07/01/18 22:49 BP 123/75 07/01/18 22:49 Pulse Ox 96 07/01/18 22:49 Constitutional: well developed, well nourished and + obese on RA A& 0 x 3 Eyes: EOM intact bilaterally ENMT: Ears: no external ear abnormality Nose: no external nose abnormality Mouth: + dry oral mucous membranes Neck: no nuchal rigidity Respiratory: normal respiratory effort Auscultation: + diminished lung sounds Cardiovascular: RRR, no murmur, no edema (heart sounds distant) Gastrointestinal (Abdomen): Inspection/Auscultation: abdomen normal to inspection and normal bowel sounds Percussion/Palpation: abdomen soft; abdomen nontender Musculoskeletal: Extremities: strength 5/5 throughout Skin: no rashes, warm and dry + pallor Neurologic: rod, fluent speech Psychiatric: A+Ox3, euthymic affect Orientation: alert and oriented x 3 Affect: + depressed affect Results & Data Laboratory Results Abnormal lab results 07/02/18 07/02/18 Range/Units 05:41 05:43 RBC 3.44 L (4.2-5.4) M/uL Hgb 10.1 L (12.0-16.0) g/dL Hct 31.5 L (37-47) % RDW Std Deviation 47.2 H (36.4-46.3) fL [place] # (Auto) 0.88 H (0.11-0.59) K/uL BUN 33 H (7-18) mg/dl Creatinine 4.26 H (0.6-1.2) mg/dl BUN/Creatinine Ratio 7.8 L (10-20) _ (1) Acute renal failure Acute renal failure type: unspecified Qualified Code(s): N17.9 - Acute kidney failure, unspecified
[2018-07-02] MEDS: GABAPENTIN 300 MG CAP PO SCH ×3 (08:27→21:04)
[2018-07-02] MEDS: dilTIAZem HCL 240 MG CAPCR PO SCH (08:27)
[2018-07-02] MEDS: CITALOPRAM 40 MG TAB PO SCH (08:27)
[2018-07-02] MEDS: SENNA 8.6 MG TAB PO SCH (08:28)
[2018-07-02] MEDS: DOCUSATE SODIUM 100 MG CAP PO SCH ×2 (08:28→21:04)
--- NOTE | 2018-07-02 09:32 | Pharmacy Report ---
Pharmacy Abx Dose Short Note - Date of Service July 02, 2018 - Assessment & Plan Assessment 57 year old F receiving vancomycin and rocephin for treatment of discitis. Day # 10 of antimicrobial therapy. * ID consulted. * Pt in continues to be in DEJON. Scr= 4.26 today. Plan Vancomycin * Last dose of 1750mg given on 06/27. * Random level of 23.7 mcg/mL is supratherapeutic. Previous random level obtained on 06/30 =30.5 mcg/mL. * Goal trough level for discitis : 15 to 20 mcg/mL * Random level ordered for: 07/03/18 with am labs Rocephin * continue 2gm Q 24hours. Pharmacy will continue to follow and will adjust dose/frequency as necessary. Thank you.
[2018-07-02] MEDS: cefTRIAXone SODIUM 2,000 MG in DEXTROSE 5% 50 ML IV SCH (10:35)
[2018-07-02] MEDS ORDERED: SODIUM CHLORIDE 0.9% 1000ML 1,000 ML IV ONE (12:31)
[2018-07-02 13:21] LABS: Basophils # (auto) 0.02 K/uL (0-0.2); Basophils % (auto) 0.3 %; Eosinophils # (auto) 0.09 K/uL (0-0.5); Eosinophils % (auto) 1.2 %; Hematocrit (blood only) 31.5 % (37-47); Hemoglobin 10.1 g/dL (12.0-16.0); Immature Granulocytes # (auto) 0.02 K/uL (0.00-0.02); Immature Granulocytes % (auto) 0.3 %; Lymphocytes # (auto) 1.95 K/uL (1.2-3.4); Lymphocytes % (auto) 25.8 %; Mean Corpuscular Hgb Conc 32.1 g/dL (32-36); Mean Corpuscular Volume 91.6 fL (80-100); Mean Platelet Volume 9.1 fL (7.4-10.4); Monocytes # (auto) 0.88 K/uL (0.11-0.59); Monocytes % (auto) 11.6 %; Neutrophils # (auto) 4.61 K/uL (1.4-6.5); Neutrophils % (auto) 60.8 %; Platelet Count 240 K/uL (130-400); RDW Coefficient of Variation 14.3 % (11.5-14.5); RDW Standard Deviation 47.2 fL (36.4-46.3); Red Blood Count 3.44 M/uL (4.2-5.4); White Blood Count 7.57 K/uL (4.8-10.8)
--- NOTE | 2018-07-02 14:18 | Infectious Disease Progress Nt ---
Date of Service July 02, 2018 Assessment & Plan (1) Discitis of lumbar region: no positive blood cultures to guide culture, urine culture growing E. coli but UA with only 1-5 wbc and >30 ep cells suspect contaminant. would continue emperic abx, could change to dapto as this may be earsier to dose in this patient but lack of insurance may make placement difficult so she may need to remain on vanco. hold until level <15. will need 6 weeks IV abx and weekly cbc, cmp, esr, vanco trough - maintain 15-20. Her current Vanco level is 30and her vancomycin remains on hold. I would not re-dose with vancomycin until her level is less than 15. Subjective Creatinine remains elevated. Today it is 4.2 Vanco level has decreased to 23.. The patient remains afebrile. She remains on Rocephin. Vanc remains on hold due to supratherapeutic levels. Blood cultures are negative and final. There is no new micro for review. Physical Exam 2 Vital Signs (Past 24 Hours): Last Vital Signs Temp 36.5 C 07/02/18 11:34 Pulse 71 07/02/18 13:22 Resp 16 07/02/18 11:34 BP 108/66 07/02/18 13:56 Pulse Ox 97 07/02/18 11:34 Results & Data Laboratory Results Microbiology 06/23/18 17:25 Blood Blood Culture - Final No growth 06/23/18 17:18 Blood Blood Culture - Final No growth 06/24/18 01:00 Urine,Clean Catch Urine Culture - Final Escherichia coli
[2018-07-02] MEDS ORDERED: predniSONE 20 MG TAB PO STA (17:29)
--- NOTE | 2018-07-02 17:29 | Hospitalist Progress Note ---
Date of Service July 02, 2018 Assessment & Plan (1) Discitis of lumbar region: Back pain, possible discitis and osteomyelitis of lumbar spine Per Dr Escalera's notes: -CT scan 1. No acute fractures or traumatic subluxations 2. Destruction of the L1-2 endplates. The findings are suspicious for discitis and osteomyelitis. An MRI the lumbar spine is recommended in follow-up. 3. Multifactorial moderate spinal stenosis the L2-3 level, and moderate to severe spinal stenosis the L3-4 level. 4. Multifocal psoas calcifications. -pain control and bowel regimen -patient could not tolerate MRI of the back secondary to pain -patient was evaluated by orthopedic service on 06/24/18 and that treatment at this time is non-operative -as per discussions with infectious disease service, Dr. Gonzales and Dr. Cary , given that patient has discitis with elevated inflammatory markers but absent positive blood culture and lacking MRI evidence as patient reports that she cannot tolerate lying down for the imaging study, and with positive urinanalysis for pansensitive E.coli in the urine, patient advised to continue IV antibiotics for 6 weeks in case there is an infectious process or osteomyelitis from an infection -PICC line placed on right arm on 06/26/18 -since admission, patient has been on Zosyn and Vancomycin from 06/23/18 and on patient is transitioned to Ceftrixone as 2 grams daily for E.coli coverage and to continue Vancomycin -Vancomycin stopped on 06/27/18 due to acute kidney injury and elevated Vancomycin trough levels -- continue Ceftri IV Vanco level 23 -- Prednisone, Ofirmev 650mg IV q8 able to transfer to chair with less pain continue to monitor PT/OT Acute kidney injury from vancomycin -DEJON noted on 06/27/18, -have stopped Vancomycin on 06/27/18 and IV fluids given - crea 4.2 - Vanco level 23 - continue to monitor crea appreciate Nephro recommendations Dizziness - likely from Orthostatic hypotension given 1 L of NSS monitor BP Diarrhea - C diff: negative resume regular diet Hypertension -continue home dose diltiazem -have stopped KLARISSA inhibitors due to DEJON Morbid obesity with BMI 51.3 -continue PT/OT history of depression -continue celexa DVT ppx: Heparin SC Code Status: Full Code sister Debbie [phone] Disposition pending PT/OT in progress may need Rehab Subjective ff up for lumbar discitis, acute renal failure felt dizzy while sitting up in chair, BP noted to be in the syst 80s led back to bed, STAT NSS bolus ordered seen watching tv, comfortable states dizziness resolved back and lower extremity pain about the same no diarrhea, abdominal pain no problems voiding no other symptoms Physical Exam 2 Vital Signs (Past 24 Hours): Last Vital Signs Temp 36.7 C 07/02/18 15:16 Pulse 63 07/02/18 15:16 Resp 17 07/02/18 15:16 BP 144/74 H 07/02/18 15:16 Pulse Ox 99 07/02/18 15:16 Physical Exam: General- oriented x 3, not in distress, speaks in sentences with no effort or accessory muscle use morbidly obese Eyes- anicteric Neck- no JVD Lungs- clear breath sounds bilaterally Heart- normal rate, regular rhythm; no murmurs Abdomen- normal bowel sounds, nondistended, soft, nontender Extremities- no pretibial edema, no calf tenderness Neuro- alert, oriented x 3; no gross focal neurologic deficits Skin- warm & dry Results & Data Laboratory Results Laboratory Results - last 24 hr 07/02/18 07/02/18 07/02/18 05:41 05:43 05:43 WBC 7.57 RBC 3.44 L Hgb 10.1 L Hct 31.5 L MCV 91.6 MCH 29.4 MCHC 32.1 RDW Std Deviation 47.2 H RDW Coeff of Fausto 14.3 Plt Count 240 MPV 9.1 Immature Gran % (Auto) 0.3 Neut % (Auto) 60.8 Lymph % (Auto) 25.8 [place] % (Auto) 11.6 Eos % (Auto) 1.2 Baso % (Auto) 0.3 Immature Gran # (Auto) 0.02 Neut # (Auto) 4.61 Lymph # (Auto) 1.95 [place] # (Auto) 0.88 H Eos # (Auto) 0.09 Baso # (Auto) 0.02 PT 11.1 INR 1.1 Sodium 138 Potassium 3.8 Chloride 104 Carbon Dioxide 25 Anion Gap 8.0 BUN 33 H Creatinine 4.26 H Est Cr Clr Drug Dosing 21.6 Est GFR ( Amer) 12.4 Est GFR (Non-Af Amer) 10.7 BUN/Creatinine Ratio 7.8 L Glucose 85 Calcium 8.5 Random Vancomycin 07/02/18 05:43 WBC RBC Hgb Hct MCV MCH MCHC RDW Std Deviation RDW Coeff of Fausto Plt Count MPV Immature Gran % (Auto) Neut % (Auto) Lymph % (Auto) [place] % (Auto) Eos % (Auto) Baso % (Auto) Immature Gran # (Auto) Neut # (Auto) Lymph # (Auto) [place] # (Auto) Eos # (Auto) Baso # (Auto) PT INR Sodium Potassium Chloride Carbon Dioxide Anion Gap BUN Creatinine Est Cr Clr Drug Dosing Est GFR ( Amer) Est GFR (Non-Af Amer) BUN/Creatinine Ratio Glucose Calcium Random Vancomycin 23.7
[2018-07-03] MEDS: HYDROmorphone INJ 0.5 MG/0.5 ML SYR IV PRN ×3 (00:47→22:16)
[2018-07-03] MEDS: ACETAMINOPHEN 65 ML IV SCH ×3 (05:00→20:32)
[2018-07-03] MEDS: HEPARIN SOD 5,000 UNIT/0.5 ML VIAL SQ SCH ×3 (05:22→22:10)
[2018-07-03 06:27] LABS: Hematocrit (blood only) 33.6 % (37-47); Hemoglobin 10.7 g/dL (12.0-16.0); Mean Corpuscular Hgb Conc 31.8 g/dL (32-36); Mean Corpuscular Volume 90.3 fL (80-100); Mean Platelet Volume 8.8 fL (7.4-10.4); Platelet Count 232 K/uL (130-400); RDW Coefficient of Variation 13.9 % (11.5-14.5); RDW Standard Deviation 46.4 fL (36.4-46.3); Red Blood Count 3.72 M/uL (4.2-5.4); White Blood Count 4.79 K/uL (4.8-10.8)
[2018-07-03 07:02] LABS: BUN Creatinine Ratio 8.1 (10-20); Calcium 8.5 mg/dl (8.5-10.1); Creatinine Clr Calc Pharmacy 22.9 ml/min; Est GFR (African American) 13.3; Est GFR (Non-African American) 11.5
[2018-07-03] MEDS: CITALOPRAM 40 MG TAB PO SCH (08:15)
[2018-07-03] MEDS: GABAPENTIN 300 MG CAP PO SCH ×3 (08:15→20:32)
[2018-07-03] MEDS: dilTIAZem HCL 240 MG CAPCR PO SCH (08:15)
[2018-07-03] MEDS: DOCUSATE SODIUM 100 MG CAP PO SCH ×2 (08:16→20:32)
[2018-07-03] MEDS: SENNA 8.6 MG TAB PO SCH (08:16)
[2018-07-03] MEDS: cefTRIAXone SODIUM 2,000 MG in DEXTROSE 5% 50 ML IV SCH (10:52)
--- NOTE | 2018-07-03 10:54 | Pharmacy Report ---
Pharmacy Abx Dose Short Note - Date of Service July 03, 2018 - Assessment & Plan Laboratory Tests 06/27/18 06/28/18 06/29/18 09:44 05:53 08:14 Vancomycin Trough 40.0 Random Vancomycin 37.4 36.3 06/30/18 07/02/18 07/03/18 05:43 05:43 06:08 Vancomycin Trough Random Vancomycin 30.5 23.7 22.0 Assessment 57 year old F receiving vancomycin and rocephin for treatment of discitis. Day # 11 of Vancomycin; # 8 of Rocephin. * ID consulted. * Pt in continues to be in DEJON. Scr= 4.02 today. Plan Vancomycin * Last dose of 1750mg given on 06/27. * Random level of 22 mcg/mL is supratherapeutic. Previous random level obtained on 07/02 = 23.7 mcg/mL. * Goal trough level for discitis : 15 to 20 mcg/mL * Re-dose once level drops below 15mcg/ml * Random level ordered for: 07/05/18 with am labs Rocephin * continue 2gm Q 24hours. Pharmacy will continue to follow and will adjust dose/frequency as necessary. Thank you.
--- NOTE | 2018-07-03 12:47 | Progress Note ---
DATE: 07/03/2018 SUBJECTIVE: Overnight, no new issues. She denies nausea, vomiting, chest pain, shortness of breath, orthopnea, PND. She is making urine, but I do not think all the urine output is being captured on the input-output charting. No new issues. She is eating and drinking, fairly normal, completing about 75% of the meal. PHYSICAL EXAMINATION: GENERAL: Awake, alert, oriented x3. She is morbidly obese, essentially bedbound. VITAL SIGNS: Blood pressure 125/72, pulse rate 75 per minute, respiratory rate 18 per minute, temperature 37 degrees Celsius, 91% on room air. NEUROLOGIC: Awake, alert, oriented x3. CHEST: Bilateral decreased breath sounds, poor inspiratory effort. CARDIOVASCULAR: S1 and S2, very distant heart sounds secondary to morbid obesity. ABDOMEN: Soft, nontender, obese. EXTREMITIES: Shows bilateral lymphedema, did not see any pitting edema. LABORATORY TESTS: From this morning was reviewed. Creatinine is trending down slowly. It is down to 4.02 from 4.26 yesterday morning. BUN 33. Sodium 135, potassium 4.0, chloride 105, bicarb 24. Hemoglobin 10.7, WBC count 4.79. Current medication list was reviewed in detail. She is not getting IV fluid at this time. ASSESSMENT AND PLAN: Acute renal failure. Baseline creatinine completely normal at 0.7 and was at baseline as recently as June 25. Current acute renal failure is secondary to ATN versus AIN secondary to vancomycin toxicity plus minus from the infection itself. Creatinine is trending down, although fairly slowly. Does not appear to be in fluid overload and does not have any major electrolyte imbalance. Most likely, she will not need dialysis. Agree with giving no fluid as she is eating and drinking fairly normally. Continue to monitor the drug level appropriately, daily labs. We will continue to follow.
[2018-07-03] MEDS ORDERED: predniSONE 10 MG TABLET PO ONE (18:28)
--- NOTE | 2018-07-03 18:28 | Hospitalist Progress Note ---
Date of Service July 03, 2018 Assessment & Plan (1) Discitis of lumbar region: Back pain, possible discitis and osteomyelitis of lumbar spine Per Dr Escalera's notes: -CT scan 1. No acute fractures or traumatic subluxations 2. Destruction of the L1-2 endplates. The findings are suspicious for discitis and osteomyelitis. An MRI the lumbar spine is recommended in follow-up. 3. Multifactorial moderate spinal stenosis the L2-3 level, and moderate to severe spinal stenosis the L3-4 level. 4. Multifocal psoas calcifications. -pain control and bowel regimen -patient could not tolerate MRI of the back secondary to pain -patient was evaluated by orthopedic service on 06/24/18 and that treatment at this time is non-operative -as per discussions with infectious disease service, Dr. Gonzales and Dr. Cary , given that patient has discitis with elevated inflammatory markers but absent positive blood culture and lacking MRI evidence as patient reports that she cannot tolerate lying down for the imaging study, and with positive urinanalysis for pansensitive E.coli in the urine, patient advised to continue IV antibiotics for 6 weeks in case there is an infectious process or osteomyelitis from an infection -PICC line placed on right arm on 06/26/18 -since admission, patient has been on Zosyn and Vancomycin from 06/23/18 and on patient is transitioned to Ceftrixone as 2 grams daily for E.coli coverage and to continue Vancomycin -Vancomycin stopped on 06/27/18 due to acute kidney injury and elevated Vancomycin trough levels -- continue Ceftri IV Vanco level 23 -- Prednisone, Ofirmev 650mg IV q8 pain seems to be improving continue to monitor PT/OT Acute kidney injury from vancomycin -DEJON noted on 06/27/18, -have stopped Vancomycin on 06/27/18 and IV fluids given - crea 4.0 - Vanco level 23 - continue to monitor crea appreciate Nephro recommendations Dizziness - likely from Orthostatic hypotension given 1 L of NSS - resolved Diarrhea - C diff: negative resume regular diet Hypertension -continue home dose diltiazem -have stopped KLARISSA inhibitors due to DEJON Morbid obesity with BMI 51.3 -continue PT/OT history of depression -continue celexa DVT ppx: Heparin SC Code Status: Full Code sister Debbie [phone] Disposition pending PT/OT in progress may need Rehab Subjective ff up for lumbar discitis, acute renal failure resting in bed, comfortable feels better today pain slightly better no problems voiding no dizziness when upright no other symptoms Physical Exam 2 Vital Signs (Past 24 Hours): Last Vital Signs Temp 36.3 C L 07/03/18 14:57 Pulse 67 07/03/18 14:57 Resp 22 07/03/18 14:57 BP 124/76 07/03/18 14:57 Pulse Ox 97 07/03/18 14:57 Physical Exam: General- oriented x 3, not in distress, speaks in sentences with no effort or accessory muscle use Eyes- anicteric Neck- no JVD Lungs- clear breath sounds bilaterally Heart- normal rate, regular rhythm; no murmurs Abdomen- normal bowel sounds, nondistended, soft, nontender Extremities- no pretibial edema, no calf tenderness Neuro- alert, oriented x 3; no gross focal neurologic deficits Skin- warm & dry Results & Data Laboratory Results Laboratory Results - last 24 hr 07/03/18 07/03/18 07/03/18 06:08 06:08 06:08 WBC 4.79 L RBC 3.72 L Hgb 10.7 L Hct 33.6 L MCV 90.3 MCH 28.8 MCHC 31.8 L RDW Std Deviation 46.4 H RDW Coeff of Fausto 13.9 Plt Count 232 MPV 8.8 Sodium 135 L Potassium 4.0 Chloride 105 Carbon Dioxide 24 Anion Gap 6.0 BUN 33 H Creatinine 4.02 H Est Cr Clr Drug Dosing 22.9 Est GFR ( Amer) 13.3 Est GFR (Non-Af Amer) 11.5 BUN/Creatinine Ratio 8.1 L Glucose 112 H POC Glucose Calcium 8.5 Random Vancomycin 22.0 07/03/18 16:58 WBC RBC Hgb Hct MCV MCH MCHC RDW Std Deviation RDW Coeff of Fausto Plt Count MPV Sodium Potassium Chloride Carbon Dioxide Anion Gap BUN Creatinine Est Cr Clr Drug Dosing Est GFR ( Amer) Est GFR (Non-Af Amer) BUN/Creatinine Ratio Glucose POC Glucose 99 Calcium Random Vancomycin
[2018-07-04] MEDS: ACETAMINOPHEN 65 ML IV SCH ×3 (04:15→20:13)
[2018-07-04] MEDS: HEPARIN SOD 5,000 UNIT/0.5 ML VIAL SQ SCH ×3 (05:33→21:57)
[2018-07-04 06:52] LABS: BUN Creatinine Ratio 9.2 (10-20); Calcium 8.3 mg/dl (8.5-10.1); Creatinine Clr Calc Pharmacy 23.4 ml/min; Est GFR (African American) 13.6; Est GFR (Non-African American) 11.7; Potassium 3.8 mmol/L (3.5-5.1)
[2018-07-04] MEDS: SENNA 8.6 MG TAB PO SCH (08:24)
[2018-07-04] MEDS: CITALOPRAM 40 MG TAB PO SCH (08:24)
[2018-07-04] MEDS: GABAPENTIN 300 MG CAP PO SCH ×3 (08:24→20:12)
[2018-07-04] MEDS: dilTIAZem HCL 240 MG CAPCR PO SCH (08:24)
[2018-07-04] MEDS: DOCUSATE SODIUM 100 MG CAP PO SCH ×2 (08:24→20:29)
[2018-07-04] MEDS: cefTRIAXone SODIUM 2,000 MG in DEXTROSE 5% 50 ML IV SCH (10:35)
--- NOTE | 2018-07-04 11:37 | Hospitalist Progress Note ---
Date of Service July 04, 2018 Assessment & Plan (1) Discitis of lumbar region: Back pain, possible discitis and osteomyelitis of lumbar spine Per Dr Escalera's notes: -CT scan 1. No acute fractures or traumatic subluxations 2. Destruction of the L1-2 endplates. The findings are suspicious for discitis and osteomyelitis. An MRI the lumbar spine is recommended in follow-up. 3. Multifactorial moderate spinal stenosis the L2-3 level, and moderate to severe spinal stenosis the L3-4 level. 4. Multifocal psoas calcifications. -pain control and bowel regimen -patient could not tolerate MRI of the back secondary to pain -patient was evaluated by orthopedic service on 06/24/18 and that treatment at this time is non-operative -as per discussions with infectious disease service, Dr. Gonzales and Dr. Cary , given that patient has discitis with elevated inflammatory markers but absent positive blood culture and lacking MRI evidence as patient reports that she cannot tolerate lying down for the imaging study, and with positive urinanalysis for pansensitive E.coli in the urine, patient advised to continue IV antibiotics for 6 weeks in case there is an infectious process or osteomyelitis from an infection -PICC line placed on right arm on 06/26/18 -since admission, patient has been on Zosyn and Vancomycin from 06/23/18 and on patient is transitioned to Ceftrixone as 2 grams daily for E.coli coverage and to continue Vancomycin -Vancomycin stopped on 06/27/18 due to acute kidney injury and elevated Vancomycin trough levels -- continue Ceftri IV Vanco level 22 -- given Prednisone x 3 days, change Ofirmev 650mg IV q8 to pRN pain improving gradually continue to monitor PT/OT Acute kidney injury from vancomycin -DEJON noted on 06/27/18, -have stopped Vancomycin on 06/27/18 and IV fluids given - crea slowly improving, now at 3.9 - Vanco level 22 - continue to monitor crea appreciate Nephro recommendations Dizziness - likely from Orthostatic hypotension given 1 L of NSS - resolved Diarrhea - C diff: negative resume regular diet Hypertension -continue home dose diltiazem -have stopped KLARISSA inhibitors due to DEJON Morbid obesity with BMI 51.3 -continue PT/OT history of depression -continue celexa DVT ppx: Heparin SC Code Status: Full Code sister Debbie [phone] Disposition pending PT/OT in progress may need Rehab Subjective ff up for lumbar discitis, acute renal failure resting in bed, comfortable, watching TV back and leg pain continues to improve no problems voiding reports GI upset this AM with mild nausea (+) BMs no other symptoms Physical Exam 2 Vital Signs (Past 24 Hours): Last Vital Signs Temp 36.5 C 07/04/18 07:15 Pulse 74 07/04/18 07:15 Resp 16 07/04/18 07:15 BP 138/79 07/04/18 07:15 Pulse Ox 96 07/04/18 07:15 Physical Exam: General- oriented x 3, not in distress, speaks in sentences with no effort or accessory muscle use Eyes- anicteric Neck- no JVD Lungs- clear BS BL, no rales/wheezing Heart- normal rate, regular rhythm; no murmurs Abdomen- normal bowel sounds, nondistended, soft, nontender Extremities- no pretibial edema, no calf tenderness Neuro- alert, oriented x 3; no gross focal neurologic deficits Skin- warm & dry Results & Data Laboratory Results Laboratory Results - last 24 hr 07/03/18 07/04/18 20:05 05:55 Sodium 137 Potassium 3.8 Chloride 105 Carbon Dioxide 25 Anion Gap 7.0 BUN 36 H Creatinine 3.94 H Est Cr Clr Drug Dosing 23.4 Est GFR ( Amer) 13.6 Est GFR (Non-Af Amer) 11.7 BUN/Creatinine Ratio 9.2 L Glucose 122 H POC Glucose 122 H Calcium 8.3 L
[2018-07-04] MEDS ORDERED: PANTOprazole 40 MG in SYRINGE 0 ML IV ONE (12:00)
--- NOTE | 2018-07-04 15:57 | Progress Note ---
DATE: 07/04/2018 NEPHROLOGY NOTE SUBJECTIVE: Overnight, no new issues. She denies nausea, vomiting, chest pain, shortness of breath, orthopnea, PND. She is making urine. Labs are getting better. PHYSICAL EXAMINATION: GENERAL: Awake, alert, oriented x3. She is morbidly obese, essentially bedbound. VITAL SIGNS: Blood pressure 138/79, pulse rate 74 per minute, respiratory rate 16 per minute, temperature 36.5, 96% on room air. HEENT: Mucous membrane is moist. NECK: Supple. Cannot assess JVD. CHEST: Bilateral decreased breath sounds. CARDIOVASCULAR: S1, S2 regular. ABDOMEN: Soft, nontender, obese. EXTREMITIES: Show lymphedema chronically. I did not see any pitting edema. LABORATORY TESTS: Show improving renal function. Creatinine this morning is 3.94, BUN is down to 36. Sodium 137, potassium 3.8. ASSESSMENT AND PLAN: Acute renal failure: Baseline creatinine is completely normal at 0.7 and was at baseline as recently as 06/25. Current acute renal failure secondary to acute tubular necrosis versus acute interstitial nephritis secondary to vancomycin toxicity plus/minus from the infection itself. Creatinine is trending down, although fairly slowly, does not appear to be in fluid overload and does not have any major electrolyte imbalance. Most likely she will not need dialysis. Agree with giving no fluid as she is eating and drinking fairly normally. Continue to monitor the drug level appropriately with daily laboratories. We will continue to follow.
[2018-07-04] MEDS: HYDROmorphone INJ 0.5 MG/0.5 ML SYR IV PRN ×2 (16:19→22:26)
[2018-07-05] MEDS: ACETAMINOPHEN 65 ML IV SCH ×2 (04:10→12:57)
[2018-07-05] MEDS: HEPARIN SOD 5,000 UNIT/0.5 ML VIAL SQ SCH ×3 (05:31→21:47)
[2018-07-05 07:07] LABS: BUN Creatinine Ratio 9.9 (10-20); Calcium 8.3 mg/dl (8.5-10.1); Est GFR (African American) 14.7; Est GFR (Non-African American) 12.7; Potassium 3.2 mmol/L (3.5-5.1)
[2018-07-05] MEDS: SENNA 8.6 MG TAB PO SCH (08:31)
[2018-07-05] MEDS: DOCUSATE SODIUM 100 MG CAP PO SCH ×2 (08:31→20:13)
[2018-07-05] MEDS: CITALOPRAM 40 MG TAB PO SCH (08:32)
[2018-07-05] MEDS: dilTIAZem HCL 240 MG CAPCR PO SCH (08:32)
[2018-07-05] MEDS: GABAPENTIN 300 MG CAP PO SCH ×3 (08:32→20:12)
[2018-07-05] MEDS: HYDROmorphone INJ 0.5 MG/0.5 ML SYR IV PRN ×3 (08:34→21:49)
[2018-07-05] MEDS: PANTOprazole 40 MG TAB PO SCH (08:34)
[2018-07-05] MEDS ORDERED: POTASSIUM CHLORIDE 20 MEQ TABCR PO STA (08:38)
[2018-07-05] MEDS ORDERED: POTASSIUM CHLORIDE PWD 20 MEQ PACK PO SCH (09:15)
[2018-07-05] MEDS: cefTRIAXone SODIUM 2,000 MG in DEXTROSE 5% 50 ML IV SCH (10:09)
--- NOTE | 2018-07-05 10:49 | Infectious Disease Progress Nt ---
Date of Service July 05, 2018 Assessment & Plan (1) Discitis of lumbar region: no positive blood cultures to guide culture, urine culture growing E. coli but UA with only 1-5 wbc and >30 ep cells suspect contaminant. would continue emperic abx, could change to dapto as this may be earsier to dose in this patient but lack of insurance may make placement difficult so she may need to remain on vanco. hold until level <15. will need 6 weeks IV abx and weekly cbc, cmp, esr, vanco trough - maintain 15-20. Her current Vanco level is 30and her vancomycin remains on hold. I would not re-dose with vancomycin until her level is less than 15. Subjective creat and vanco levels continue to improve. 17 today. cultures negative, afebrile. tolerating ctx. Physical Exam 2 Vital Signs (Past 24 Hours): Last Vital Signs Temp 36.5 C 07/05/18 07:41 Pulse 68 07/05/18 07:41 Resp 17 07/05/18 07:41 BP 125/78 07/05/18 07:41 Pulse Ox 96 07/05/18 07:41 Results & Data Laboratory Results Microbiology 06/23/18 17:25 Blood Blood Culture - Final No growth 06/23/18 17:18 Blood Blood Culture - Final No growth 06/24/18 01:00 Urine,Clean Catch Urine Culture - Final Escherichia coli
--- NOTE | 2018-07-05 10:49 | Pharmacy Report ---
Pharmacy Abx Dose Short Note - Date of Service July 05, 2018 - Assessment & Plan Assessment * 57 year old F receiving ceftriaxone and vancomycin for treatment of discitis/? osteomyelitis and E. coli UTI * Significant DEJON noted. Baseline SCr earlier this admission 0.53 mg/dL. Now persistently elevated > 3 mg/dL since 06/27, although trending down. No anticipated need for HD per nephrology Vancomycin * Vancomycin on hold since 06/27. Vancomycin level has trended down from 37.4 to 17.6 mcg/mL over 7 days. * Per ID - re-dose vancomycin when level *below* 15 mcg/mL. Level today is 17.6 mcg/mL. * Repeat random level tomorrow AM Plan * No vancomycin today * Repeat random level with AM labs tomorrow (07/06) * Suggest dose of 250 mg once level falls below 15 mcg/mL. * Of note, this is less than typical minimum dose of 500 mg, but that is intentional as this patient is *not* receiving HD and therefore will not have the benefit of removal by HD if the dose selected is too high Pharmacy will continue to follow and will adjust dose/frequency as necessary. Thank you.
[2018-07-05] MEDS ORDERED: VANCOMYCIN HCL 250 MG in SODIUM CHLORIDE 0.9% 50 ML IV ONE (11:00)
--- NOTE | 2018-07-05 17:30 | Hospitalist Progress Note ---
Date of Service July 05, 2018 Assessment & Plan (1) Discitis of lumbar region: Back pain, possible discitis and osteomyelitis of lumbar spine Per Dr Escalera's notes: -CT scan 1. No acute fractures or traumatic subluxations 2. Destruction of the L1-2 endplates. The findings are suspicious for discitis and osteomyelitis. An MRI the lumbar spine is recommended in follow-up. 3. Multifactorial moderate spinal stenosis the L2-3 level, and moderate to severe spinal stenosis the L3-4 level. 4. Multifocal psoas calcifications. -pain control and bowel regimen -patient could not tolerate MRI of the back secondary to pain -patient was evaluated by orthopedic service on 06/24/18 and that treatment at this time is non-operative -as per discussions with infectious disease service, Dr. Gonzales and Dr. Cary , given that patient has discitis with elevated inflammatory markers but absent positive blood culture and lacking MRI evidence as patient reports that she cannot tolerate lying down for the imaging study, and with positive urinanalysis for pansensitive E.coli in the urine, patient advised to continue IV antibiotics for 6 weeks in case there is an infectious process or osteomyelitis from an infection -PICC line placed on right arm on 06/26/18 -since admission, patient has been on Zosyn and Vancomycin from 06/23/18 and on patient is transitioned to Ceftrixone as 2 grams daily for E.coli coverage and to continue Vancomycin -Vancomycin stopped on 06/27/18 due to acute kidney injury and elevated Vancomycin trough levels -- continue Ceftri IV Vanco level 17.6 when Vanco level < 15, will transition to Dapto -- given Prednisone x 3 days, change Ofirmev 650mg IV q8 to pRN pain improving gradually continue to monitor PT/OT Acute kidney injury from vancomycin - DEJON noted on 06/27/18, - have stopped Vancomycin on 06/27/18 and IV fluids given - crea slowly improving, now at 3.6 - continue to monitor crea appreciate Nephro recommendations Dizziness - likely from Orthostatic hypotension given 1 L of NSS - resolved Diarrhea - C diff: negative resume regular diet Hypertension -continue home dose diltiazem -have stopped KLARISSA inhibitors due to DEJON Morbid obesity with BMI 51.3 -continue PT/OT history of depression -continue celexa DVT ppx: Heparin SC Code Status: Full Code sister Debbie [phone] Disposition pending PT/OT in progress may need Rehab Subjective ff up for lumbar discitis, acute renal failure resting, comfortable states she was able to sit up in chair and walk to the bathroom today pain increased slightly but patient happy she is able to move more denies gi symptoms no problems voiding no other symptoms Physical Exam 2 Vital Signs (Past 24 Hours): Last Vital Signs Temp 36.5 C 07/05/18 17:25 Pulse 75 07/05/18 17:25 Resp 18 07/05/18 17:25 BP 87/48 L 07/05/18 17:25 Pulse Ox 100 07/05/18 17:25 Physical Exam: General- oriented x 3, not in distress, speaks in sentences with no effort or accessory muscle use Eyes- anicteric Neck- no JVD Lungs- clear BS BL Heart- normal rate, regular rhythm; no murmurs Abdomen- normal bowel sounds, nondistended, soft, nontender Extremities- no pretibial edema, no calf tenderness Neuro- alert, oriented x 3; no gross focal neurologic deficits Skin- warm & dry Results & Data Laboratory Results Laboratory Results - last 24 hr 07/05/18 07/05/18 05:58 08:58 Sodium 140 Potassium 3.2 L D Chloride 106 Carbon Dioxide 25 Anion Gap 9.0 BUN 36 H Creatinine 3.69 H Est Cr Clr Drug Dosing 25.0 Est GFR ( Amer) 14.7 Est GFR (Non-Af Amer) 12.7 BUN/Creatinine Ratio 9.9 L Glucose 93 Calcium 8.3 L Random Vancomycin 17.6
[2018-07-05] MEDS ORDERED: ACETAMINOPHEN 65 ML IV PRN (17:31)
--- NOTE | 2018-07-05 18:00 | Nephrology Progress Note ---
Date of Service July 05, 2018 Assessment & Plan (1) Acute renal failure: baseline creatinine 0.7-0.8; at baseline as recently as 06/25; no labs 06/26 ; then 06/27 w/ creatinine 3.4 trending up fast at first peaked on 06/30 at 4.5, down to 3.7 today; chemistries acceptable (apart from low K) as is her volume status. pt w/ hx of recurrent UTI and source is suspected as potential source in her discitis; not oliguric; urine eos negative x1 -repeat uacm bland/ not so supportive but does not r/o atn -recovering nonoliguric ATN from vancomycin toxicity +/- from discitis itself > > vanco still therapeutic in her blood; dapto planned once trough<15 -cont strict I/O -agreee w/ limited IVF -daily bmp and every other day cbc -cont to avoid nsaids and iv contrast and lisinopril -gave 40 mEq po K today; no need to recheck bmp >>>reasonable next 1-2 days from renal standpoint to d/c assuming labs tomorrow am no worse. needs bmp weekly x 4; needs appt [facility] in 4 wks - we will arrange Subjective seen on rounds at 0900; having vertigo; not tolerating K pills - can't swallow; no voidign concerns; does not mention diarrhea today. no sob, no edema. no rash later in day had 1L NS and vertigo resolved/ attrib to orthostatic hypotension Physical Exam 2 Vital Signs (Past 24 Hours): Last Vital Signs Temp 36.5 C 07/05/18 17:25 Pulse 75 07/05/18 17:25 Resp 18 07/05/18 17:25 BP 87/48 L 07/05/18 17:25 Pulse Ox 100 07/05/18 17:25 Constitutional: well developed, well nourished and + obese on ra in very moderate distress; feels poorly Eyes: EOM intact bilaterally ENMT: Ears: no external ear abnormality Nose: no external nose abnormality Mouth: + dry oral mucous membranes Neck: no nuchal rigidity Respiratory: normal respiratory effort Auscultation: + diminished lung sounds Cardiovascular: RRR, no murmur, no edema (heart sounds distant) Gastrointestinal (Abdomen): Inspection/Auscultation: abdomen normal to inspection and normal bowel sounds Percussion/Palpation: abdomen soft; abdomen nontender Musculoskeletal: Extremities: strength 5/5 throughout Skin: no rashes, warm and dry + pallor Psychiatric: Orientation: alert and oriented x 3 Affect: + anxious affect Results & Data Laboratory Results Abnormal lab results 07/05/18 Range/Units 05:58 Potassium 3.2 L D (3.5-5.1) mmol/L BUN 36 H (7-18) mg/dl Creatinine 3.69 H (0.6-1.2) mg/dl BUN/Creatinine Ratio 9.9 L (10-20) Calcium 8.3 L (8.5-10.1) mg/dl _ (1) Acute renal failure Acute renal failure type: unspecified Qualified Code(s): N17.9 - Acute kidney failure, unspecified
[2018-07-06] MEDS: HEPARIN SOD 5,000 UNIT/0.5 ML VIAL SQ SCH ×2 (05:55→14:16)
[2018-07-06] MEDS: HYDROmorphone INJ 0.5 MG/0.5 ML SYR IV PRN ×2 (06:01→12:24)
[2018-07-06 06:31] LABS: Hematocrit (blood only) 31.4 % (37-47); Hemoglobin 9.8 g/dL (12.0-16.0); Mean Corpuscular Hgb Conc 31.2 g/dL (32-36); Mean Corpuscular Volume 91.8 fL (80-100); Mean Platelet Volume 9.1 fL (7.4-10.4); Platelet Count 225 K/uL (130-400); RDW Coefficient of Variation 14.5 % (11.5-14.5); RDW Standard Deviation 48.8 fL (36.4-46.3); Red Blood Count 3.42 M/uL (4.2-5.4)
[2018-07-06 06:53] LABS: BUN Creatinine Ratio 10.3 (10-20); Calcium 8.3 mg/dl (8.5-10.1); Creatinine Clr Calc Pharmacy 25.8 ml/min; Est GFR (African American) 15.3; Est GFR (Non-African American) 13.2; Potassium 3.5 mmol/L (3.5-5.1)
[2018-07-06] MEDS: DOCUSATE SODIUM 100 MG CAP PO SCH (08:57)
[2018-07-06] MEDS: SENNA 8.6 MG TAB PO SCH (08:57)
[2018-07-06] MEDS: PANTOprazole 40 MG TAB PO SCH (08:57)
[2018-07-06] MEDS: GABAPENTIN 300 MG CAP PO SCH ×2 (08:58→14:18)
[2018-07-06] MEDS: dilTIAZem HCL 240 MG CAPCR PO SCH (08:58)
[2018-07-06] MEDS: CITALOPRAM 40 MG TAB PO SCH (08:58)
[2018-07-06] MEDS ORDERED: DAPTOmycin 375 MG in SYRINGE 0 ML IV SCH (09:00)
[2018-07-06] MEDS: cefTRIAXone SODIUM 2,000 MG in DEXTROSE 5% 50 ML IV SCH (09:22)
[2018-07-06] MEDS ORDERED: DAPTOmycin 575 MG in SYRINGE 0 ML IV SCH (10:00)
--- NOTE | 2018-07-06 15:11 | Hospitalist Progress Note ---
Date of Service July 06, 2018 Assessment & Plan (1) Discitis of lumbar region: Back pain, possible discitis and osteomyelitis of lumbar spine Per Dr Escalera's (previous hospitalist) notes: -CT scan 1. No acute fractures or traumatic subluxations 2. Destruction of the L1-2 endplates. The findings are suspicious for discitis and osteomyelitis. An MRI the lumbar spine is recommended in follow-up. 3. Multifactorial moderate spinal stenosis the L2-3 level, and moderate to severe spinal stenosis the L3-4 level. 4. Multifocal psoas calcifications. -patient could not tolerate MRI of the back secondary to pain -patient was evaluated by orthopedic service on 06/24/18 and that treatment at this time is non-operative -as per discussions with infectious disease service, Dr. Gonzales and Dr. Cary , given that patient has discitis with elevated inflammatory markers but absent positive blood culture and lacking MRI evidence as patient reports that she cannot tolerate lying down for the imaging study, and with positive urinanalysis for pansensitive E.coli in the urine, patient advised to continue IV antibiotics for 6 weeks in case there is an infectious process or osteomyelitis from an infection -PICC line placed on right arm on 06/26/18 -since admission, patient has been on Zosyn and Vancomycin from 06/23/18 and on patient is transitioned to Ceftrixone as 2 grams daily for E.coli coverage and to continue Vancomycin -Vancomycin stopped on 06/27/18 due to acute kidney injury and elevated Vancomycin trough levels -- continued Ceftri IV Vanco level therapeutic until 07/06/18 when patient as transitioned to Daptomycin 575mg IV daily discussed with Flow Coordinator Dr. Glass-- DOES NOT RECOMMEND TO RESUME VANCOMYCIN DUE TO ACUTE RENAL FAILURE ID recommends total of 42 days of Ceftri IV and Dapto IV (needs 29 more days on discharge day) needs weekly cbc, cmp, esr follow up with Dr. Gonzales at the ID [facility] in 1-2 weeks -- for pain control given Prednisone x 3 days, Ofirmev 650mg IV PRN and Dilaudid PRN will prescribe with [place] 5/325mg TID PRN -- continue PT/OT eval ff up with Ortho Spine Dr. De La Rosa in 2 weeks Acute kidney injury from vancomycin - DEJON noted on 06/27/18 - have stopped Vancomycin on 06/27/18 and IV fluids given - Flow Coordinator Dr. Glass consulted given IV Fluids - crea slowly improving, now at 3.4 - continue to monitor BMP weekly ff up with Dr. Glass in 2 weeks - no NSAIDs, KLARISSA I, Contrast Dizziness - likely from Orthostatic hypotension given 1 L of NSS - resolved Diarrhea - C diff: negative resume regular diet Hypertension -continue home dose diltiazem -have stopped KLARISSA inhibitors due to DEJON Morbid obesity with BMI 51.3 -continue PT/OT history of depression -continue celexa DVT ppx: Heparin SC Code Status: Full Code sister Debbie [phone] Disposition d/c home ff up with ID Clinic, Nephro, Ortho in 2 weeks Subjective ff up for lumbar discitis, acute renal failure resting comfortably pain improving, more manageable denies headache, dizziness, chest pain, dyspnea, abdominal pain no problems voiding no other symptoms states she is ready and is ok for discharge today Physical Exam 2 Vital Signs (Past 24 Hours): Last Vital Signs Temp 36.4 C L 07/06/18 14:10 Pulse 81 07/06/18 14:10 Resp 17 07/06/18 14:10 BP 150/80 H 07/06/18 14:10 Pulse Ox 98 07/06/18 14:10 Physical Exam: General- oriented x 3, not in distress, speaks in sentences with no effort or accessory muscle use Eyes- anicteric Neck- no JVD Lungs- clear breath sounds bilaterally Heart- normal rate, regular rhythm; no murmurs Abdomen- normal bowel sounds, nondistended, soft, nontender Extremities- no pretibial edema, no calf tenderness Neuro- alert, oriented x 3; no gross focal neurologic deficits Skin- warm & dry Results & Data Laboratory Results Laboratory Results - last 24 hr 07/06/18 07/06/18 07/06/18 05:51 05:51 05:51 WBC 6.00 RBC 3.42 L Hgb 9.8 L Hct 31.4 L MCV 91.8 MCH 28.7 MCHC 31.2 L RDW Std Deviation 48.8 H RDW Coeff of Fausto 14.5 Plt Count 225 MPV 9.1 Sodium 143 Potassium 3.5 Chloride 109 H Carbon Dioxide 27 Anion Gap 7.0 BUN 37 H Creatinine 3.57 H Est Cr Clr Drug Dosing 25.8 Est GFR ( Amer) 15.3 Est GFR (Non-Af Amer) 13.2 BUN/Creatinine Ratio 10.3 Glucose 93 Calcium 8.3 L Random Vancomycin 14.1
--- NOTE | 2018-07-06 15:38 | Discharge Summary ---
Date of Service July 06, 2018 Admission HPI Per Admitting Provider 57-year-old female who presents to emergency department with complaint of persistent and worsening lower back pain Patient reports back pain has been alonzo on for several months. Also reporting that she has chronic left leg pain when ambulating. denies recent trauma to back. denies recreational drug use. patient cannot clarify whether the pain is from one point in the back and reports that the location of pain appears to change denies fevers. denies problems with balance, denies urinary changes, denies problems with bowel movements in recent past. reports poor appetitie. denies vomiting denies allergies to medication family history of mother with thyroid condition Admission Exam Per Admitting Provider Vital Signs (Past 24 Hours): Last Vital Signs Temp 36.6 C 06/23/18 13:17 Pulse 86 06/23/18 18:51 Resp 20 06/23/18 18:51 BP 145/82 H 06/23/18 18:51 Pulse Ox 95 06/23/18 18:51 Constitutional: WD/WN, vitals as above Eyes: PERRL, conjunctivae normal, anicteric sclerae ENMT: external ear and nose normal, oropharynx normal Respiratory: normal respiratory effort, lungs clear to auscultation Cardiovascular: RRR, no murmur, no edema Gastrointestinal (Abdomen): normal bowel sounds, soft, nontender, no hepatosplenomegaly Musculoskeletal: no point tenderness on palpation of the back Neurologic: PERRL, EOMI, accommodation nl, no face palsy, no dysarthria Psychiatric: A+Ox3, euthymic affect Principal Diagnosis LUMBAR SPINE DISCITIS, OSTEOMYELITIS; ACUTE RENAL FAILURE SECONDARY TO VANCOMYCIN Discharge Exam Vital Signs (Past 24 Hours): Last Vital Signs Temp 36.4 C L 07/06/18 14:10 Pulse 81 07/06/18 14:10 Resp 17 07/06/18 14:10 BP 150/80 H 07/06/18 14:10 Pulse Ox 98 07/06/18 14:10 Physical Exam: General- oriented x 3, not in distress, speaks in sentences with no effort or accessory muscle use Eyes- anicteric Neck- no JVD Lungs- clear breath sounds bilaterally Heart- normal rate, regular rhythm; no murmurs Abdomen- normal bowel sounds, nondistended, soft, nontender Extremities- no pretibial edema, no calf tenderness Neuro- alert, oriented x 3; no gross focal neurologic deficits Skin- warm & dry Discharge Data Allergies Allergy/AdvReac Type Severity Reaction Status Date / Time vancomycin AdvReac Severe ACUTE Verified 07/06/18 15:38 RENAL FAILURE Consultations 06/23/18 17:10 ED Decision to Admit Stat 06/23/18 17:50 Consult Case Management - Discharge Planning Routine 06/23/18 19:28 Consult Orthopedic Surgery Stat 06/25/18 08:03 Consult Infectious Diseases Routine 06/27/18 11:28 Consult Nephrology Routine Ordered Studies 06/23/18 13:49 CT abd pelvis IV con only Stat CT OF THE ABDOMEN AND PELVIS WITH CONTRAST CLINICAL HISTORY: Abdominal pain. Low back pain with chronic left lower extremity radiculopathy. COMPARISON STUDY: None. TECHNIQUE: Following IV administration of 94 mL of Optiray-320, axial images of the abdomen and pelvis were obtained from the lung bases to the proximal femurs. Images were reviewed in the axial, sagittal, and coronal planes. IV contrast was administered without complication. Automated exposure control was utilized for the study. A dose lowering technique was utilized adhering to the principles of ALARA. CT DOSE: 1196.26 mGycm FINDINGS: Please note that the lumbar spine CT will be reported separately. Lung bases are clear. The liver, spleen, adrenal glands, kidneys and pancreas are unremarkable. There is no hydronephrosis. There is no evidence for a bowel obstruction. No lymphadenopathy or ascites is noted. The appendix is normal. There is no biliary or pancreatic ductal dilatation. The lumbar spine will be reported separately. Destruction of the inferior endplate of L1 and superior endplate of L2 is noted. Paravertebral infiltration is noted. Central canal is suboptimally assessed by CT. There are multifocal calcifications within the bilateral psoas muscles. Associated fluid collections cannot be excluded. There is marked disc space narrowing at L2-L3. Transitional vertebra is designated as L5 on this exam. This partially sacralized. IMPRESSION: 1. Severe destruction of the inferior endplate of L1 and superior endplate of L2 which suggests discitis/osteomyelitis. MRI of the lumbar spine with and without contrast is recommended to evaluate for epidural abscess. Calcifications within the bilateral psoas muscles are likely related to this process. The psoas muscles can be assessed at time of MRI to exclude intramuscular abscess. 2. No acute process within the abdomen or pelvis. No bowel obstruction. Normal appendix. CT lumbar spine wo con Stat CT lumbar spine wo con CT DOSE: 0.00 mGy.cm CLINICAL HISTORY: Low back pain with left lower extremity radiculopathy. TECHNIQUE: Helical images were acquired in transverse plane. Reformatted sagittal and coronal images were reviewed. A dose lowering technique was utilized adhering to the principles of ALARA. CONTRAST: No contrast was administered COMPARISON STUDY: None. FINDINGS: Evaluation is somewhat limited due to the patient's very large body habitus and secondary beam hardening artifact. L1-2 level: There are destructive changes involving the endplates. The findings are viewed as suspicious for discitis osteomyelitis. An MRI the spine is recommended in follow-up to evaluate for epidural disease. L2-3 level: There is extensive discogenic endplate sclerosis. There is mild to moderate spinal stenosis. There is facet joint arthropathy. L3-4 level: There is a circumferential disc bulge. There is moderate to severe spinal stenosis. There is facet joint arthropathy. L4-5 level: There is a circumferential disc bulge. There is no significant spinal or foraminal stenosis. L5-S1 level: There is no evidence of significant disc bulge or focal herniation. There is no evidence of spinal or foraminal stenosis. There are multiple psoas calcifications. IMPRESSION: 1. No acute fractures or traumatic subluxations 2. Destruction of the L1-2 endplates. The findings are suspicious for discitis and osteomyelitis. An MRI the lumbar spine is recommended in follow-up. 3. Multifactorial moderate spinal stenosis the L2-3 level, and moderate to severe spinal stenosis the L3-4 level. 4. Multifocal psoas calcifications. XR chest 1V portable HISTORY: 57 years-old Female RIGHT PICC LINE PLACEMENT status post placement of a right-sided PICC COMPARISON: CT abdomen and pelvis of same day TECHNIQUE: Portable AP view of the chest FINDINGS: Cardiac silhouette is upper limits of normal in size. Right-sided PICC is noted with distal tip in the expected region of the proximal SVC. No pneumothorax, pleural effusion or overt pulmonary edema. Degenerative changes of the shoulders and spine. IMPRESSION: Status post placement of a right-sided PICC, distal tip terminating in the expected region of the proximal SVC. No pneumothorax. Hospital Course (1) Discitis of lumbar region: Back pain, possible discitis and osteomyelitis of lumbar spine Lumbar Spine Stenosis Per Dr Escalera's (previous hospitalist) notes: -CT scan 1. No acute fractures or traumatic subluxations 2. Destruction of the L1-2 endplates. The findings are suspicious for discitis and osteomyelitis. An MRI the lumbar spine is recommended in follow-up. 3. Multifactorial moderate spinal stenosis the L2-3 level, and moderate to severe spinal stenosis the L3-4 level. 4. Multifocal psoas calcifications. -patient could not tolerate MRI of the back secondary to pain -patient was evaluated by orthopedic service on 06/24/18 and that treatment at this time is non-operative -as per discussions with infectious disease service, Dr. Wakefield and Dr. Cary , given that patient has discitis with elevated inflammatory markers but absent positive blood culture and lacking MRI evidence as patient reports that she cannot tolerate lying down for the imaging study, and with positive urinanalysis for pansensitive E.coli in the urine, patient advised to continue IV antibiotics for 6 weeks in case there is an infectious process or osteomyelitis from an infection -PICC line placed on right arm on 06/26/18 -since admission, patient has been on Zosyn and Vancomycin from 06/23/18 and on patient is transitioned to Ceftrixone as 2 grams daily for E.coli coverage and to continue Vancomycin -Vancomycin stopped on 06/27/18 due to acute kidney injury and elevated Vancomycin trough levels -- continued Ceftri IV Vanco level therapeutic until 07/06/18 when patient as transitioned to Daptomycin 575mg IV daily discussed with Guard Supervisor Dr. Roberts-- DOES NOT RECOMMEND TO RESUME VANCOMYCIN DUE TO ACUTE RENAL FAILURE ID recommends total of 42 days of Ceftri IV and Dapto IV (needs 29 more days on discharge day) needs weekly cbc, cmp, esr follow up with Dr. Wakefield at the ID Clinic in 1-2 weeks -- for pain control given Prednisone x 3 days, Ofirmev 650mg IV PRN and Dilaudid PRN will prescribe with [place] 5/325mg TID PRN -- continue PT/OT eval ff up with Ortho Spine Dr. De La Rosa in 2 weeks Acute kidney injury from vancomycin - DEJON noted on 06/27/18 - have stopped Vancomycin on 06/27/18 and IV fluids given - Guard Supervisor Dr. Roberts consulted given IV Fluids - crea slowly improving, from 0.6 to 4.4, now at 3.4 - check BMP tomorrow, if downtrending, continue to monitor BMP weekly ff up with Dr. Patricia Roberts in 2 weeks - no NSAIDs, KLARISSA I, IV Contrast Dizziness - likely from Orthostatic hypotension given 1 L of NSS - resolved Diarrhea - C diff: negative resume regular diet Hypertension -continue home dose diltiazem -have stopped KLARISSA inhibitors due to DEJON Morbid obesity with BMI 51.3 -continue PT/OT history of depression -continue celexa DVT ppx: Heparin SC Code Status: Full Code sister Debbie [phone] Disposition d/c home ff up with ID Clinic, Nephro, Ortho in 2 weeks Total Time Total Time Spent Total Time Spent (In Minutes): 60 minutes Discharge Plan Discharge Items Patient Disposition: Transfer Inpatient Rehab Fac Reason For Visit: DISCITIS,OSTEOMYELITIS Discharge Diagnosis: LUMBAR SPINE DISCITIS, POSSIBLE OSTEOMYELITIS; ACUTE RENAL FAILURE Discharge Goals: Diagnostic testing and Therapeutic intervention Activity: As commented below Activity Comment: ALWAYS WITH ASSISTANCE, FALL PRECAUTIONS PLEASE Lifting: Wait until after follow-up appointment Exercise/Sports: Wait until after follow-up appointment Driving/Machine Use Comment: NO DRIVING UNTIL ALLOWED BY PHYSICIANS Non-emergency contact: Primary Care Provider Call non-emergency contact if: you have any medication questions, your symptoms worsen, your pain is not controlled, your pain is worsening, your pain is unusual for you, your pain is concerning for you and you have a fever Diet: Heart Healthy Addtl Provider Instructions: FOLLOW UP WITH INFECTIOUS DISEASE SERVICE DR. WAKEFIELD 2 WEEKS. FOLLOW UP WITH BRAKE LINING DRILLER DR. ROBERTS IN 1-2 WEEKS. FOLLOW UP WITH ORTHOPEDIC DOCTOR-SPINE- DR. DE LA ROSA IN 2 WEEKS. PLEASE REFER TO ACCOMPANYING HOSPITAL DISCHARGE SUMMARY FOR FURTHER DETAILS. Prescriptions: New sennosides [Senokot] 8.6 mg Tablet 17.2 mg PO QAM 30 Days Qty: 60 RF: 0 pantoprazole 40 mg Tablet,Delayed Release (Dr/Ec) 40 mg PO QAM 14 Days Qty: 14 RF: 0 docusate sodium 100 mg Capsule 100 mg PO BID 14 Days Qty: 28 RF: 0 heparin, porcine (PF) 5,000 unit/0.5 mL Syringe 5,000 unit subcut Q8 14 Days Qty: 21 RF: 0 ceftriaxone 2 gram recon soln 2 gm IV DAILY 29 Days Qty: 29 RF: 0 daptomycin 500 mg recon soln 575 mg IV DAILY 29 Days Qty: 29 RF: 0 hydrocodone-acetaminophen [[place]] 5-325 mg tablet 1 tab PO TID PRN (Reason: pain) Qty: 10 RF: 0 Continue citalopram [Celexa] 40 mg Tablet 40 mg PO QAM RF: 0 diltiazem HCl 240 mg Capsule,Extended Release 24 Hr 240 mg PO QAM RF: 0 gabapentin 300 mg Capsule 300 mg PO TID RF: 0 Discontinued acetaminophen [Tylenol Extra Strength] 500 mg Tablet 1,500 mg PO UD PRN (Reason: Pain) RF: 0 diclofenac sodium 75 mg Tablet,Delayed Release (Dr/Ec) 75 mg PO BID RF: 0 benazepril 40 mg Tablet 40 mg PO QAM RF: 0 Stand-Alone Forms: [facility] Discharge Orders: Discharge Order (Routine); Ordered 07/06/18 Ordered By: Shamir Baxter Skilled Items Patient informed of condition?: Yes DNR: No Discharge Level of Care: Acute rehab Communicable Disease: No Discharge Prognosis: Improving Admission Data Admit Date/Time: 06/23/18 17:49 Attending Provider: Shamir Baxter Admit Provider: Robert Escalera Primary Care Provider: PCP,NO Other Providers: Robert Escalera ; Aki Robison ; Alpesh Antoine ; Toni Leigh ; Luis De La Rosa ; Toni Arce ; Rian Olguin V ; Tre Cary. ; Patricia Roberts Service: Medical Other Interventions: Discharge Summary Assessment (RN) Last Done: 07/06/18 14:10
== END 2018-07-06 16:00 | DRG 539 ==
LOC: ED 13:14 → 3N 17:49 → SUATTDRO 17:49 → 3N 18:51

== ENCOUNTER 2019-01-26 16:38 | Inpatient (IN) ==
--- OUTSIDE RECORDS SUMMARY | 2019-01-26 16:41 | External Medical Summary | Continuity of Care Document ---
:1960 Author Name Santy Avila Address Unavailable Unavailable , Care Team Providers Name Role Phone Gonzales DO Unavailable [email or web address] [place] PCP, UNKNOWN Unavailable Unavailable Assessments Assessed Problems:Osteomyelitis of lumbar spine Problems Osteomyelitis of lumbar spine (730.28) (M46.26) Lumbar discitis (722.93) (M46.46) Allergies and Adverse Reactions vancomycin (Allergy) Medications Benazepril HCl - 40 MG Oral Tablet; TAKE 1 TABLET DAILY. Start: 22-Jul-2018 Refills: 0 cefTRIAXone Sodium 2 GM Intravenous Solu tion Reconstituted; infuse 2g daily via PICC line until 08/07/18 Start: 20-Jul-2018 Refills: 0 Senokot S 8.6-50 MG Oral Tablet; TAKE 1 OR 2 TABLETS DAILY TO PREVENT CONSTIPATION. Start: 20-Jul-2018 Refills: 0 Pantoprazole Sodium 40 MG Oral Tablet Delayed Release; Take 1 tablet daily Start: 20-Jul-2018 Refills: 11 Docusate Sodium 100 MG Oral Tablet; Take 1 tablet twice efrain y Start: 20-Jul-2018 Refills: 0 [place] 5-325 MG Oral Tablet; TAKE 1 TABLET EVERY 6 HOURS N EEDED. Start: 20-Jul-2018 Refills: 0 CeleXA 40 MG Oral Tablet; TAKE 1 TABLET EVERY DAY Start: 20-Jul-2018 Refills: 0 dilTIAZem HCl ER 240 MG Oral Capsule Ext ended Release 24 Hour; TAKE 1 CAPSULE Daily Start: 20-Jul-2018 Quantity: 30 Refills: 6 Gabapentin 300 MG Oral Capsule; TAKE 1 CAPSULE 3 TIMES DAILY . Start: 20-Jul-2018 Refills: 0 Procedures Procedures not documented Immunizations Immunizations not documented Interventions Discussion/SummaryShe will continue empiric antibiotics with daptomycin and Rocephin on a daily basis until the . If she continues to have clinical improvement her antibiotics can be discontinued at that herPICC line can be removed. She should continue to have weekly laboratory studies. I will not scheduled for a routine visit unless there is change noted. Plan of Treatment Planned Observations Planned Goals not documented Results No Known Results Results not documented Encounters Appointment; Carley Gonzales DO 22-Jul-2018 11:30 Encounter Diagnosis: Problem not documented
[2019-01-26] MEDS ORDERED: SODIUM CHLORIDE 0.9% 1000ML 1,000 ML IV SCH (17:00)
--- NOTE | 2019-01-26 17:04 | Emergency Department Note ---
Entered by Nallely Riggins acting as a scribe for History of Present Illness General Chief complaint: Ankle Pain Stated complaint: FALL, COMPOUND FX ANKLE, HIP PAIN Time Seen by Provider: 01/26/19 16:46 Source: patient and family History of Present Illness Provider complaint: right ankle pain Onset (ago): day(s) 1 Location: lower extremity and right Radiation: other (right hip) Pain Consistency: + other (episode) Associated symptoms: + denies other symptoms (head pain, back pain), + weakness (for 3 days ) and + other (dizziness, right hip pain, right shoulder pain, laid on ground for 1 day before receiving help, diarrhea for 1 week) The patient is a 58 year old female who presents to the ED with complaints of an episode of right ankle pain that began 1 day ago. The patient states that she believes her ankle broke following a fall down a few stairs yesterday. The patient states the she believes the fracture occurred when she was trying to stand up after the fall, not during. The patient states that she laid on the ground for 1 day before contacting EMS because she could not get access to a phone. The patient states that she felt dizzy before falling. The patient notes that she also has right hip pain and right shoulder pain. The patient denies head pain and back pain. The patient's sister states that the patient has been having diarrhea for 1 week and has been very weak the past 3 days which is probably why she fell. Home Medications Home Medications Medication Instructions Recorded Confirmed Type diltiazem HCl 240 mg PO QAM 05/14/18 01/26/19 History gabapentin 300 mg PO TID 05/14/18 01/26/19 History citalopram [Celexa] 40 mg PO QAM 06/06/18 01/26/19 History diclofenac sodium 75 mg PO BID 01/26/19 01/26/19 History Allergies Allergy/AdvReac Type Severity Reaction Status Date / Time vancomycin AdvReac Severe ACUTE Verified 07/06/18 15:38 RENAL FAILURE Past Med/Surg History Medical History Sciatica (Chronic) Hypertension UTI (urinary tract infection) Surgical History Hernia History of dilatation and curettage Social History Preferred Language: Yakut Communication Ability: Effective Visual Impairment: No Limitations Beliefs That Will Affect Care: None marital status: Current Living Situation: Alone current occupational status: unemployed Feels Safe at Home: Yes Smoking Status: Never smoker Second Hand Exposure: No ; Hx Alcohol Use: Yes Alcohol type: wine Hx Substance Use: No Review of Systems See HPI for pertinent positives & negatives. and A total of 10 systems reviewed and were otherwise negative Physical Exam Vital Signs Vital Signs - 24 hr 01/26/19 16:54 Temperature 36.6 C Temperature Source Oral Sepsis Recent Fever Within 48 Hours No Sepsis Action Taken by Nursing No Action Required Pulse Rate 81 Pulse Rhythm Regular Pulse Strength Normal Respiratory Rate 16 Respiratory Effort / Characteristics Non-Labored Respiratory Depth Normal Respiratory Pattern Regular Blood Pressure 118/80 Blood Pressure Mean 92 Blood Pressure Position Lying Pulse Oximetry 98 Oxygen Delivery Method Room Air CONSTITUTIONAL/VITAL SIGNS: Reviewed / noted above. GENERAL: Non-toxic in appearance. INTEGUMENTARY: Warm, dry, and Bell. HEAD: Normocephalic. EYES: without scleral icterus or trauma. ENT/OROPHARYNX: clear and moist. LYMPHADENOPATHY/NECK: Is supple without lymphadenopathy or meningismus. RESPIRATORY: Lungs clear and equal. CARDIOVASCULAR: Regular rate and rhythm. GI/ABDOMEN: Soft and nontender. No organomegaly or pulsatile mass. No rebound or guarding. Normal bowel sounds. EXTREMITIES: Slight puncture wound on the right lateral ankle with surrounding ecchymosis. Abrasion on left wrist. Erythema on right forearm. Warm and well perfused. BACK: No CVA tenderness. NEUROLOGICAL: Intact without focal deficits. PSYCHIATRIC: normal affect. MUSCULOSKELETAL: Normally developed with good muscle tone. Course 1646: Past medical records reviewed. The patient was evaluated in room A12. A complete history and physical exam was performed. 2012: I discussed the patient's case with Dr. Lira- Orthopedic Surgeon. He will review the patient's x-rays and call me back. 2020: Dr. Lira reviewed the x-rays and states that it looks like a small avulsion fracture. I probed the patient's ankle and I believe this is an open fr acture. 2100: I discussed the patient's case with Dr. Espino [facility] Hospitalist. He will evaluate the patient for further management. Consultations Consultation #1: I discussed the patient's case with Dr. Lira- Orthopedic Surgeon. He will review the patient's x-rays and call me back. Time: 20:13 Consultation #2: I discussed the patient's case with Dr. Reyes- [facility] Hospitalist. He will evaluate the patient for further management. Time: 21:01 Administered Medications Discontinued Medications Bupivacaine HCl (Sensorcaine 0.25% Inj) Confirm Administered Dose 30 ml .ROUTE .STK-MED ONE Stop: 01/26/19 21:40 Last Admin: 01/26/19 22:11 Dose: 10 ml Documented by: [id number] Cefazolin Sodium (Ancef 3000mg) 3,000 mg IV ONE ONE Stop: 01/26/19 20:31 Last Admin: 01/26/19 21:30 Dose: 3,000 mg Documented by: [id number] Sodium Chloride (Nss 1000ml) 1,000 mls @ 999 mls/hr IV .Q1H1M BRAULIO Stop: 01/26/19 18:00 Last Infusion: 01/26/19 19:36 Dose: 0 mls/hr Documented by: [id number] Admin: 01/26/19 18:15 Dose: 999 mls/hr Documented by: [id number] Morphine Sulfate (Morphine Sulfate) 4 mg IV NOW STA Stop: 01/26/19 17:12 Last Admin: 01/26/19 18:18 Dose: 4 mg Documented by: [id number] Medical Decision Making Differential Diagnosis Differential includes close head injury, intracranial bleed, facial trauma, cervical spine trauma, chest and thoracic trauma, abdominal and intra-abdominal trauma, spine neurologic trauma, extremity trauma. Medical Records Attestation: I reviewed the patient's medical records. Home Medications Current Medication List: was personally reviewed by me Laboratory Data Attestation: I reviewed the patient's lab results. Result diagrams: 01/26/19 18:55 01/26/19 20:57 Lab Results 01/26/19 01/26/19 01/26/19 Range/Units 17:51 18:55 18:55 WBC 25.87 H (4.8-10.8) K/uL RBC 4.71 (4.2-5.4) M/uL Hgb 13.7 (12.0-16.0) g/dL Hct 40.8 (37-47) % MCV 86.6 (80-100) fL MCH 29.1 (25-34) pg MCHC 33.6 (32-36) g/dL RDW Std Deviation 41.9 (36.4-46.3) fL RDW Coeff of Fausto 13.1 (11.5-14.5) % Plt Count 282 (130-400) K/uL MPV 10.0 (7.4-10.4) fL Immature Gran % (Auto) 1.2 % Neut % (Auto) 86.0 % Lymph % (Auto) 5.6 % Boone % (Auto) 7.0 % Eos % (Auto) 0.0 % Baso % (Auto) 0.2 % Immature Gran # (Auto) 0.32 H (0.00-0.02) K/uL Neut # (Auto) 22.26 H (1.4-6.5) K/uL Lymph # (Auto) 1.44 (1.2-3.4) K/uL Boone # (Auto) 1.81 H (0.11-0.59) K/uL Eos # (Auto) 0.00 (0-0.5) K/uL Baso # (Auto) 0.04 (0-0.2) K/uL Echinocytes 1+ PT (9.0-12.0) Seconds INR (0.9-1.1) Sodium 142 (136-145) mmol/L Potassium (3.5-5.1) mmol/L Chloride 109 H (98-107) mmol/L Carbon Dioxide 22 (21-32) mmol/L Anion Gap 12.0 H (3-11) BUN 28 H (7-18) mg/dl Creatinine 1.51 H (0.6-1.2) mg/dl Est Cr Clr Drug Dosing 61.4 ml/min Est GFR ( Amer) 43.1 Est GFR (Non-Af Amer) 37.2 BUN/Creatinine Ratio 18.7 (10-20) Glucose 103 H (70-99) mg/dl POC Glucose 91 (70-99) Calcium 8.3 L (8.5-10.1) mg/dl Magnesium (1.8-2.4) mg/dl Total Bilirubin 0.8 (0.2-1) mg/dl AST (15-37) U/L ALT 36 (12-78) U/L Alkaline Phosphatase 107 (45-117) U/L Total Creatine Kinase (26-192) U/L Total Protein 6.1 L (6.4-8.2) gm/dl Albumin 2.5 L (3.4-5.0) gm/dl Globulin 3.6 (2.5-4.0) gm/dl Albumin/Globulin Ratio 0.7 L (0.9-2) TSH (0.300-4.500) uIu/ml 01/26/19 01/26/19 01/26/19 Range/Units 20:57 20:57 20:57 WBC (4.8-10.8) K/uL RBC (4.2-5.4) M/uL Hgb (12.0-16.0) g/dL Hct (37-47) % MCV (80-100) fL MCH (25-34) pg MCHC (32-36) g/dL RDW Std Deviation (36.4-46.3) fL RDW Coeff of Fausto (11.5-14.5) % Plt Count (130-400) K/uL MPV (7.4-10.4) fL Immature Gran % (Auto) % Neut % (Auto) % Lymph % (Auto) % Boone % (Auto) % Eos % (Auto) % Baso % (Auto) % Immature Gran # (Auto) (0.00-0.02) K/uL Neut # (Auto) (1.4-6.5) K/uL Lymph # (Auto) (1.2-3.4) K/uL Boone # (Auto) (0.11-0.59) K/uL Eos # (Auto) (0-0.5) K/uL Baso # (Auto) (0-0.2) K/uL Echinocytes PT 11.8 (9.0-12.0) Seconds INR 1.2 H (0.9-1.1) Sodium (136-145) mmol/L Potassium 3.3 L (3.5-5.1) mmol/L Chloride (98-107) mmol/L Carbon Dioxide (21-32) mmol/L Anion Gap (3-11) BUN (7-18) mg/dl Creatinine (0.6-1.2) mg/dl Est Cr Clr Drug Dosing ml/min Est GFR ( Amer) Est GFR (Non-Af Amer) BUN/Creatinine Ratio (10-20) Glucose (70-99) mg/dl POC Glucose (70-99) Calcium (8.5-10.1) mg/dl Magnesium 2.4 (1.8-2.4) mg/dl Total Bilirubin (0.2-1) mg/dl AST 135 H (15-37) U/L ALT (12-78) U/L Alkaline Phosphatase (45-117) U/L Total Creatine Kinase 5503 H (26-192) U/L Total Protein (6.4-8.2) gm/dl Albumin (3.4-5.0) gm/dl Globulin (2.5-4.0) gm/dl Albumin/Globulin Ratio (0.9-2) TSH 0.675 (0.300-4.500) uIu/ml Imaging Data Radiologist's Impression: Radiology results as stated below per my review and the radiologist's interpretation: CT OF THE HEAD WITHOUT CONTRAST CLINICAL HISTORY: Fall. COMPARISON STUDY: No previous studies for comparison. CT DOSE: 884.08 mGy.cm TECHNIQUE: Helical axial images of the head were obtained without IV contrast. Automated exposure control was utilized for the study. A dose lowering techn ique was utilized adhering to the principles of ALARA. FINDINGS: No acute intracranial hemorrhage, midline shift or mass effect is present. The ventricular system is unremarkable. The basilar cisterns are patent. No extra-axial collections are present. There are no findings to suggest acute dural sinus thrombosis or acute territorial infarct. No significant calvarial abnormalities are present. Visualized portions of the sinuses and mastoid air cells are clear. Exam is mildly compromised by motion artifact. IMPRESSION: 1. No acute intracranial findings. 2. Exam mildly compromised by motion artifact. No displaced calvarial fractures identified. Electronically signed by: Rc Yao M.D. 01/26/2019 7:50 PM XR chest 1V portable CLINICAL HISTORY: Fall. Weakness. COMPARISON STUDY: Chest radiograph June 26, 2018. FINDINGS: Lung volumes are normal. Lungs are clear. There is no pneumothorax or pleural effusion. There is mildly enlarged. Mediastinal contours are stable. There is no evidence for pulmonary edema. IMPRESSION: No acute cardiopulmonary findings. Electronically signed by: Rc Yao M.D. 01/26/2019 8:00 PM XR pelvis 1-2V routine CLINICAL HISTORY: fall COMPARISON: CT of the abdomen and pelvis June 23, 2018. FINDINGS: Sacroiliac joints and symphysis pubis are intact. There is severe right hip osteophytosis. Apparent foreshortening of the left femoral neck is noted. This is likely positional. No definite acute fracture is identified. IMPRESSION: Foreshortening of the left femoral neck which is likely technical. However, the findings could be correlated with left hip pain and left hip radiographs. Electronically signed by: Rc Yao M.D. 01/26/2019 7:59 PM XR tibia fibula RT 2V CLINICAL HISTORY: Fall. COMPARISON: None FINDINGS: Avulsion fracture of the fibular tip is noted. There is widening of the tibiotalar articulation. There is adjacent soft tissue gas. There is also gas within the right lower leg and foot. No proximal right tibial or fibular fracture is noted. Severe osteoarthritis of the right knee is noted. Right lower leg soft tissue swelling is noted. IMPRESSION: 1. Acute mildly displaced avulsion fracture of the fibular tip. 2. Suspected widening of the tibiotalar talar joint which suggests partial ankle mortise disruption. 3. Soft tissue gas of the right lower leg, ankle and foot which is of indeterminate etiology. This could be due to an open fracture or infectious process. Electronically signed by: Rc Yao M.D. 01/26/2019 8:06 PM XR ankle RT 2V CLINICAL HISTORY: Fall. Right ankle injury. COMPARISON: None FINDINGS: Note is made of an avulsion fracture of the fibular tip. There is also widening of the tibiotalar articulation. Multiple locules of soft tissue gas are noted within the right ankle and foot, most pronounced at the level of the tibiotalar joint. IMPRESSION: 1. Mildly displaced avulsion fracture of the fibular tip. 2. Widening of the tibiotalar joint which suggests partial disruption of the ankle mortise. 3. Soft tissue gas of indeterminate etiology. This could be due to an open fracture or infectious process. Electronically signed by: Rc Yao M.D. 01/26/2019 8:04 PM ECG Data Attestation: I personally reviewed and interpreted this ECG as follows: Indication: other (trauma) Rate (beats per minute): 80 Rhythm: normal sinus Findings: no PAC, no PVC, no ST elevation and no ectopy Blood Pressure Blood Pressure Findings: Normal blood pressure Blood Pressure Disposition: did not require urgent referral Head Trauma GCS Score: 15 MDM Narrative This is a 58-year-old female who presents to the ED with a chief complaint of right ankle pain after a fall. The patient fell last night on her 30 basement stairs. She states that normally she is able to get up but she was unable to get up when she tried to stand up, she states that her ankle twisted. She believes that she broke her ankle. She also complains of some right hip pain and a little right shoulder pain. She denies any loss of consciousness. Denies midline pain to the back or neck. The patient's exam reveals a puncture wound to the right lateral ankle with a small abrasion. The ankle is unstable. There is serosanguineous fluid draining from the ankle in a slow fashion. The area appears to be somewhat contaminated with some dirt and grass and and around the puncture wound. The patient has some mild discomfort to palpation of the right hip. She has some other small abrasions on her extremities. No obvious head injury. No midline tenderness to the cervical, thoracic or lumbar spine. A CT scan of the brain did not show acute process. X-ray of the right tib-fib and right ankle reveals mildly displaced avulsion fracture of the fibula tip. There is also widening of the tibiotalar joint suggesting partial disruption of the ankle mortise. There is also some soft tissue gas concerning for open fracture. X-ray of the hip did not reveal any fractures and chest x-ray did not reveal any abnormalities. The patient's blood work reveals an elevated white blood cell count and elevated CK. The patient was hydrated with a liter of normal saline IV. She was given IV Ancef 3 g. She was also given IV Zofran for nausea. She was given IV morphine for pain. I spoke with Dr. Lira about the patient. He will see the patient in the ED for washing out the ankle. I also spoke with the patient's sister. The patient's sister reported that the patient had diarrhea for the past week and she was weak the past few days and this is the reason she fell. I spoke with Dr. Solis about the patient. He will see the patient for admission. Impression & Plan Open fracture of right ankle, Weakness, Fall, Renal insufficiency, Contusion of multiple sites, Rhabdomyolysis Discharge Plan Visit Data Chief Complaint: Ankle Pain Stated Complaint: FALL, COMPOUND FX ANKLE, HIP PAIN ED Provider: Be Rooney Discharge Problem: Open fracture of right ankle, Weakness, Fall, Renal insufficiency, Contusion of multiple sites, Rhabdomyolysis Patient Disposition: Being Evaluated by Hospitalist Discharge Instructions Interventions: ED Discharge Assessment Last Done: 01/26/19 21:17 Discharge Problem: Open fracture of right ankle Qualifiers: Encounter type: initial encounter Open fracture type: open type I or II Qualified Code(s): S82.891B - Other fracture of right lower leg, initial encounter for open fracture type I or II Fall Qualifiers: Encounter type: initial encounter Qualified Code(s): W19.XXXA - Unspecified fall, initial encounter Rhabdomyolysis Qualifiers: Rhabdomyolysis type: traumatic Encounter type: initial encounter Qualified Code(s): T79.6XXA - Traumatic ischemia of muscle, initial encounter The scribe's documentation has been prepared under my direction and personally reviewed by me in its entirety. I confirm that the note above accurately reflects all work, treatment, procedures, and medical decision making performed by me.
[2019-01-26] MEDS ORDERED: MoRPHine SULFATE 4 MG/ML 1 ML CARP\\VIAL IV STA (17:11)
[2019-01-26 19:30] LABS: Albumin Globulin Ratio 0.7 (0.9-2); Albumin Level 2.5 gm/dl (3.4-5.0); BUN Creatinine Ratio 18.7 (10-20); Bilirubin,Total 0.8 mg/dl (0.2-1); Calcium 8.3 mg/dl (8.5-10.1); Creatinine Clr Calc Pharmacy 61.4 ml/min; Est GFR (African American) 43.1; Est GFR (Non-African American) 37.2; Globulin 3.6 gm/dl (2.5-4.0); Hematocrit (blood only) 40.8 % (37-47); Hemoglobin 13.7 g/dL (12.0-16.0); Mean Corpuscular Hemoglobin 29.1 pg (25-34); Mean Corpuscular Hgb Conc 33.6 g/dL (32-36); Mean Corpuscular Volume 86.6 fL (80-100); Platelet Count 282 K/uL (130-400); RDW Coefficient of Variation 13.1 % (11.5-14.5); RDW Standard Deviation 41.9 fL (36.4-46.3); Red Blood Count 4.71 M/uL (4.2-5.4); Total Protein 6.1 gm/dl (6.4-8.2); White Blood Count 25.87 K/uL (4.8-10.8)
--- NOTE | 2019-01-26 19:52 | CT Scan Report ---
CT OF THE HEAD WITHOUT CONTRAST CLINICAL HISTORY: Fall. COMPARISON STUDY: No previous studies for comparison. CT DOSE: 884.08 mGy.cm TECHNIQUE: Helical axial images of the head were obtained without IV contrast. Automated exposure con trol was utilized for the study. A dose lowering technique was utilized adhering to the principles o f ALARA. FINDINGS: No acute intracranial hemorrhage, midline shift or mass effect is present. The ventricular system is unremarkable. The basilar cisterns are patent. No extra-axial collections are present. Ther e are no findings to suggest acute dural sinus thrombosis or acute territorial infarct. No significan t calvarial abnormalities are present. Visualized portions of the sinuses and mastoid air cells are c lear. Exam is mildly compromised by motion artifact. IMPRESSION: 1. No acute intracranial findings. 2. Exam mildly compromised by motion artifact. No displaced calvarial fractures identified. Electronically signed by: Rc Yao M.D. 01/26/2019 7:50 PM
[2019-01-26 20:01] LABS: Basophils # (auto) 0.04 K/uL (0-0.2); Basophils % (auto) 0.2 %; Echinocytes 1+; Immature Granulocytes # (auto) 0.32 K/uL (0.00-0.02); Immature Granulocytes % (auto) 1.2 %; Lymphocytes # (auto) 1.44 K/uL (1.2-3.4); Lymphocytes % (auto) 5.6 %; Monocytes # (auto) 1.81 K/uL (0.11-0.59); Neutrophils # (auto) 22.26 K/uL (1.4-6.5)
--- NOTE | 2019-01-26 20:01 | XRay Report ---
XR pelvis 1-2V routine CLINICAL HISTORY: fall COMPARISON: CT of the abdomen and pelvis June 23, 2018. FINDINGS: Sacroiliac joints and symphysis pubis are intact. There is severe right hip osteophytosis. Apparent foreshortening of the left femoral neck is noted. This is likely positional. No definite ac neida fracture is identified. IMPRESSION: Foreshortening of the left femoral neck which is likely technical. However, the findings could be correlated with left hip pain and left hip radiographs. Electronically signed by: Rc Yao M.D. 01/26/2019 7:59 PM
--- NOTE | 2019-01-26 20:02 | XRay Report ---
XR chest 1V portable CLINICAL HISTORY: Fall. Weakness. COMPARISON STUDY: Chest radiograph June 26, 2018. FINDINGS: Lung volumes are normal. Lungs are clear. There is no pneumothorax or pleural effusion. The re is mildly enlarged. Mediastinal contours are stable. There is no evidence for pulmonary edema. IMPRESSION: No acute cardiopulmonary findings. Electronically signed by: Rc Yao M.D. 01/26/2019 8:00 PM
--- NOTE | 2019-01-26 20:05 | XRay Report ---
XR ankle RT 2V CLINICAL HISTORY: Fall. Right ankle injury. COMPARISON: None FINDINGS: Note is made of an avulsion fracture of the fibular tip. There is also widening of the tib iotalar articulation. Multiple locules of soft tissue gas are noted within the right ankle and foot, most pronounced at the level of the tibiotalar joint. IMPRESSION: 1. Mildly displaced avulsion fracture of the fibular tip. 2. Widening of the tibiotalar joint which suggests partial disruption of the ankle mortise. 3. Soft tissue gas of indeterminate etiology. This could be due to an open fracture or infectious pro cess. Electronically signed by: Rc Yao M.D. 01/26/2019 8:04 PM
--- NOTE | 2019-01-26 20:07 | XRay Report ---
XR tibia fibula RT 2V CLINICAL HISTORY: Fall. COMPARISON: None FINDINGS: Avulsion fracture of the fibular tip is noted. There is widening of the tibiotalar articul ation. There is adjacent soft tissue gas. There is also gas within the right lower leg and foot. No p roximal right tibial or fibular fracture is noted. Severe osteoarthritis of the right knee is noted. Right lower leg soft tissue swelling is noted. IMPRESSION: 1. Acute mildly displaced avulsion fracture of the fibular tip. 2. Suspected widening of the tibiotalar talar joint which suggests partial ankle mortise disruption. 3. Soft tissue gas of the right lower leg, ankle and foot which is of indeterminate etiology. This co uld be due to an open fracture or infectious process. Electronically signed by: Rc Yao M.D. 01/26/2019 8:06 PM
[2019-01-26] MEDS ORDERED: CEFAZOLIN 3000MG/72.5 ML BAG IV ONE (20:30)
--- NOTE | 2019-01-26 21:12 | History & Physical Report ---
Date of Service January 26, 2019 Assessment & Plan (1) Open wound of ankle: At this point it is indeterminate whether or not this represents a open bony injury or an open joint injury. My recommendation is to take her to the operating for exploration of open wound we will plan for irrigation and debridement, given that there is some minor dirt and debris in the region of the ankle. I would not plan for any fixation at this point in time given possible concern for infection. Will evaluate stability of the ankle down the road to determine whether or not she requires any fixation or additional surgical treatment. 3 views of the right ankle does show a small fibular avulsion fracture there is some asymmetry of the mortise which could suggest either an injury, versus arthritic changes. She has some sclerosis in the mortise which may suggest that she has pre-existing arthritic changes causing some incongruity in the mortise. I do not see any widening between the tibia and the fibula. Present on Admission?: Yes History of Present Illness This is a 58-year-old female who sustained a dizzy spell and subsequently fell she was unable to get up she remained in a down position on her right extremity for about a day. She notes pain in the right ankle. She denies any loss of consciousness she denies any other injuries. She is complains of pain in the ankle and states she was laying on her ankle for period of time and her dirty basements. Primary Care Provider: NO PCP Allergies Allergy/AdvReac Type Severity Reaction Status Date / Time vancomycin AdvReac Severe ACUTE Verified 07/06/18 15:38 RENAL FAILURE Home Medications Home Medications Medication Instructions Recorded Confirmed Type diltiazem HCl 240 mg PO QAM 05/14/18 01/26/19 History gabapentin 300 mg PO TID 05/14/18 01/26/19 History citalopram [Celexa] 40 mg PO QAM 06/06/18 01/26/19 History diclofenac sodium 75 mg PO BID 01/26/19 01/26/19 History Past Med/Surg History Social History Preferred Language: Korean Communication Ability: Effective Visual Impairment: No Limitations Beliefs That Will Affect Care: None marital status: Current Living Situation: Alone current occupational status: unemployed Feels Safe at Home: Yes Smoking Status: Never smoker Second Hand Exposure: No ; Hx Alcohol Use: Yes Alcohol type: wine Hx Substance Use: No Review of Systems Review of Systems: All systems reviewed & are unremarkable except as noted in HPI & below Physical Exam Physical Exam: Right flank exam: She has no significant bruising or ecchymosis. Significant obesity noted in the abdominal region. Right ankle exam does show a open wound less than 1 cm. I do not see definitive evidence of open bony injury but she does have crepitation consistent with air in the soft tissues. She has tenderness over her distal fibula. Her toes are warm and well-perfused and she could wiggle her toes. She has 2+ capillary refill. Eyes: + anicteric sclerae Neck: trachea midline, no thyromegaly Respiratory: normal respiratory effort Cardiovascular: Rate/Rhythm: regular rate Gastrointestinal (Abdomen): Inspection/Auscultation: abdomen normal to inspection Musculoskeletal: See above Results & Data Vital Signs (Past 12 Hours) Vital Signs Temp Pulse Resp BP Pulse Ox 01/26/19 16:54 36.6 C 81 16 118/80 98
[2019-01-26 21:15] LABS: INR 1.2 (0.9-1.1); Prothrombin Time 11.8 Seconds (9.0-12.0)
[2019-01-26 21:20] LABS: Potassium 3.3 mmol/L (3.5-5.1)
--- NOTE | 2019-01-26 21:20 | Anesthesiology Consultation ---
Date of Service January 26, 2019 Assessment & Plan (1) Encounter for pre-operative examination: Chart Review Chart Review: Acceptable Risk for Surgery Consults Requested none ASA [id number] Proposed Anesthesia Anesthesia Type: General Risk / Benefits Reviewed With: PT / POA / Parent / Guardian, Accepts Plan and Informed Consent Obtained History Surgery Operation Date: 01/26/19 20:40 Proposed Procedures p Incision and Drainage Ankle(Right) - Rishi Lira MD Height/Weight Height: 5 ft 7 in Weight: 153 kg Allergies Allergy/AdvReac Type Severity Reaction Status Date / Time vancomycin AdvReac Severe ACUTE Verified 07/06/18 15:38 RENAL FAILURE Medications Home Medications Medication Instructions Recorded Confirmed Last Taken diltiazem HCl 240 mg PO QAM 05/14/18 01/26/19 06/22/18 gabapentin 300 mg PO TID 05/14/18 01/26/19 06/22/18 21:00 citalopram [Celexa] 40 mg PO QAM 06/06/18 01/26/19 06/22/18 diclofenac sodium 75 mg PO BID 01/26/19 01/26/19 Unknown NPO Date Last Intake of Fluids: 01/26/19 Time Last Intake of Fluids: 14:30 Date Last Intake of Solids: 01/24/19 Time Last Intake of Solids: 12:00 Past Medical History Medical History Sciatica (Chronic) Hypertension UTI (urinary tract infection) Exercise / Class Metabolic Activity III < 4 Walking/Shop/Light housework Past Surgical History Surgical History Hernia History of dilatation and curettage Past Anesthesia History No Hx of Anesthesia Complications and No Family Hx of Anesthesia Complications History of PONV No Hx of PONV and No Hx of Motion Sickness Social History Smoking Status: Never smoker Hx Alcohol Use: Yes Alcohol type: wine alcohol intake frequency: other Hx Substance Use: No substance use type: does not use Physical Exam Vital Signs Last Vital Signs Temp 97.9 F 01/26/19 16:54 Pulse 81 01/26/19 16:54 Resp 16 01/26/19 16:54 BP 118/80 01/26/19 16:54 Pulse Ox 98 01/26/19 16:54 ENMT Mouth: no dentition abnormality Thyromental Distance: > or= 3.5 Finger Breadths Mallampati Class: II Neck normal visual inspection Respiratory normal respiratory effort Auscultation: lungs clear to auscultation bilaterally Cardiovascular Rate/Rhythm: regular rate and regular rhythm Testing Laboratory Results 01/26/19 18:55 PT 11.8 Seconds (9.0-12.0) 01/26/19 20:57 INR 1.2 (0.9-1.1) H 01/26/19 20:57 01/26/19 17:51 POC Glucose 91 Electrocardiogram Date: 01/26/19 Findings: + NSR @ (80 bpm) possible anterior infarct Chest X-Ray Date: 01/26/19 Findings: + NAD
[2019-01-26] MEDS ORDERED: PROPOFOL IV EMULSION 10 MG/ML 20 ML VIAL IV ONE (21:25)
[2019-01-26] MEDS ORDERED: LIDOCAINE HCL 2% 2 ML VIAL/AMP(20MG/ML) INFIL ONE (21:25)
[2019-01-26] MEDS ORDERED: fentaNYL citrate 100 MCG/2 ML VIAL ONE (21:25)
[2019-01-26] MEDS ORDERED: ATROPINE SULFATE 0.1 MG/ML 10ML SYR IV PRN (21:26)
[2019-01-26] MEDS ORDERED: ePHEDrine sulfate 50 MG/ML AMP IV PRN (21:26)
[2019-01-26] MEDS ORDERED: ONDANSETRON INJ 2 MG/ML 2 ML VIAL IV PRN (21:26)
[2019-01-26] MEDS ORDERED: fentaNYL citrate 100 MCG/2 ML VIAL IV PRN (21:26)
[2019-01-26] MEDS ORDERED: BUPIVACAINE 0.25% 30 ML VIAL ONE (21:39)
[2019-01-26] MEDS ORDERED: ePHEDrine sulfate 50 MG/ML SYR ONE (21:54)
[2019-01-26 22:05] LABS: Magnesium 2.4 mg/dl (1.8-2.4); Thyroid Stimulating Hormone 0.675 uIu/ml (0.300-4.500)
--- NOTE | 2019-01-26 22:19 | Post Operative Brief Note ---
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
[2019-01-26] MEDS ORDERED: OXYCODONE/ACETAMINOPHEN 5mg/325mg TAB PO PRN ×2 (22:24)
[2019-01-26] MEDS ORDERED: PHENYLEPHRINE 100MCG/ML 5ML SYR ONE (22:25)
--- NOTE | 2019-01-26 22:49 | Anesthesiology Progress Note ---
Date of Service January 26, 2019 Anesthesia Post Procedure Vital Signs Vital Signs: Temp Pulse Pulse Resp BP BP Pulse Ox 01/26/19 22:36 97.5 F L 85 17 119/68 96 01/26/19 16:54 97.9 F 81 16 118/80 98 Transfer of Care Handoff Completed per policy Notes Mental Status: alert / awake / arousable and participated in evaluation Patient Amnestic to Procedure: Yes Nausea / Vomiting: adequately controlled Pain: adequately controlled Airway Patency, RR, SpO2: stable & adequate BP & HR: stable & adequate Hydration State: stable & adequate Anesthetic Complications: no major complications apparent and Pt Satisfied with anesthetic care
[2019-01-26] MEDS ORDERED: LACTATED RINGER'S 1,000 ML IV SCH (23:15)
[2019-01-26] MEDS ORDERED: NO NSAIDS SCH (23:30)
[2019-01-26] MEDS ORDERED: POTASSIUM CHLORIDE 20 MEQ TABCR PO ONE (23:45)
--- NOTE | 2019-01-26 23:49 | Hospitalist Consultation ---
Date of Consultation January 26, 2019 Assessment & Plan (1) ARF (acute renal failure): Final Assessment and Recommendations as follows : Rhabdomyolysis secondary to mechanical fall Right ankle fracture status post surgery Hypertension, stable Hypokalemia Mood disorder at baseline Baseline UA, monitor creatinine response to IV fluids Follow CPK No NSAIDs Replace potassium DVT prophylaxis. Heparin 5000 units SQ every 8 hours if Orthopedics agreeable. SCDs interim Thank you very much for this consultation. Dr. Yao will follow patient's progress. History of Present Illness Reason for Consultation: Medical management Requesting Physician: Dr. Rooney Attending Physician: Rishi Lira MD History of Present Illness PCP : Dr. Huizar Chief complaint : Fall HPI : History obtained from patient, family, and records. Medical history significant for hypertension, mood disorder, arthritis. Recent confinement June 2018 for discitis status post daptomycin Rx. Patient also developed renal failure secondary to Vancomycin. Normal renal function on outpatient follow-up with [facility] last month. Last night, patient fell down after a dizzy spell. No headache, no syncope, no LOC, no chest pain, no S OB. Patient noted right ankle pain after fall. Unable to get up until patient found by a friend at home this afternoon. Patient admitted by orthopedics for right ankle fracture/wound. Subsequently underwent emergent I&D procedure at the OR. Patient currently comfortable at her room on [facility] unit. Medical History as above Surgical History : Hernia surgery, ankle surgery Family History : stroke Personal/Social history : Non-smoker, occasional EtOH intake, prior employment at [employer] Allergies Allergy/AdvReac Type Severity Reaction Status Date / Time vancomycin AdvReac Severe ACUTE Verified 07/06/18 15:38 RENAL FAILURE Home Medications Home Medications Medication Instructions Recorded Confirmed Type diltiazem HCl 240 mg PO QAM 05/14/18 01/26/19 History gabapentin 300 mg PO TID 05/14/18 01/26/19 History citalopram [Celexa] 40 mg PO QAM 06/06/18 01/26/19 History diclofenac sodium 75 mg PO BID 01/26/19 01/26/19 History Patient History Medical History Sciatica (Chronic) Hypertension UTI (urinary tract infection) Surgical History Hernia History of dilatation and curettage Social History Preferred Language: [place]ralt[place] Communication Ability: Effective Visual Impairment: No Limitations Beliefs That Will Affect Care: None marital status: Current Living Situation: Alone current occupational status: unemployed Feels Safe at Home: Yes Smoking Status: Never smoker Second Hand Exposure: No ; Hx Alcohol Use: Yes Alcohol type: wine Hx Substance Use: No Review of Systems Review of Systems: As per HPI, all 10 systems reviewed, all other ROS negative Physical Exam Physical Exam: GENERAL: Comfortable, slightly anxious, obese, no respiratory distress SKIN: Pallor, warm HEENT: Pale palpebral conjunctivae, no ptosis, dry buccal mucosa NECK : Supple, short neck, no tenderness CHEST : CTA, no tenderness HEART : RRR, no obvious murmurs ABDOMEN: Some distention, nontender EXTREMITIES : Dressing right LE, bilateral chronic LE swelling no LE swelling, minimal RLE tendernessNEUROLOGIC : Coherent, no facial asymmetry, no other gross focality Results & Data Vital Signs (Past 12 Hours) Vital Signs Temp Pulse Pulse Resp BP BP Pulse Ox 01/26/19 23:16 36.5 C 83 20 108/67 97 01/26/19 22:51 36.5 C 84 20 114/66 95 01/26/19 22:46 36.4 C L 81 16 115/70 95 01/26/19 22:41 36.4 C L 82 18 121/76 96 01/26/19 22:36 36.4 C L 85 17 119/68 96 01/26/19 16:54 36.6 C 81 16 118/80 98 Laboratory Results Laboratory Results WBC 25.87 K/uL (4.8-10.8) H 01/26/19 18:55 RBC 4.71 M/uL (4.2-5.4) 01/26/19 18:55 Hgb 13.7 g/dL (12.0-16.0) 01/26/19 18:55 Hct 40.8 % (37-47) 01/26/19 18:55 MCV 86.6 fL (80-100) 01/26/19 18:55 MCH 29.1 pg (25-34) 01/26/19 18:55 MCHC 33.6 g/dL (32-36) 01/26/19 18:55 RDW Std Deviation 41.9 fL (36.4-46.3) 01/26/19 18:55 RDW Coeff of Fausto 13.1 % (11.5-14.5) 01/26/19 18:55 Plt Count 282 K/uL (130-400) 01/26/19 18:55 MPV 10.0 fL (7.4-10.4) 01/26/19 18:55 Immature Gran % (Auto) 1.2 % 01/26/19 18:55 Neut % (Auto) 86.0 % 01/26/19 18:55 Lymph % (Auto) 5.6 % 01/26/19 18:55 [place] % (Auto) 7.0 % 01/26/19 18:55 Eos % (Auto) 0.0 % 01/26/19 18:55 Baso % (Auto) 0.2 % 01/26/19 18:55 Immature Gran # (Auto) 0.32 K/uL (0.00-0.02) H 01/26/19 18:55 Neut # (Auto) 22.26 K/uL (1.4-6.5) H 01/26/19 18:55 Lymph # (Auto) 1.44 K/uL (1.2-3.4) 01/26/19 18:55 [place] # (Auto) 1.81 K/uL (0.11-0.59) H 01/26/19 18:55 Eos # (Auto) 0.00 K/uL (0-0.5) 01/26/19 18:55 Baso # (Auto) 0.04 K/uL (0-0.2) 01/26/19 18:55 Echinocytes 1+ 01/26/19 18:55 PT 11.8 Seconds (9.0-12.0) 01/26/19 20:57 INR 1.2 (0.9-1.1) H 01/26/19 20:57 Sodium 142 mmol/L (136-145) 01/26/19 18:55 Potassium 3.3 mmol/L (3.5-5.1) L 01/26/19 20:57 Chloride 109 mmol/L (98-107) H 01/26/19 18:55 Carbon Dioxide 22 mmol/L (21-32) 01/26/19 18:55 Anion Gap 12.0 (3-11) H 01/26/19 18:55 BUN 28 mg/dl (7-18) H 01/26/19 18:55 Creatinine 1.51 mg/dl (0.6-1.2) H 01/26/19 18:55 Est Cr Clr Drug Dosing 61.4 ml/min 01/26/19 18:55 Est GFR ( Amer) 43.1 01/26/19 18:55 Est GFR (Non-Af Amer) 37.2 01/26/19 18:55 BUN/Creatinine Ratio 18.7 (10-20) 01/26/19 18:55 Glucose 103 mg/dl (70-99) H 01/26/19 18:55 POC Glucose 91 (70-99) 01/26/19 17:51 Calcium 8.3 mg/dl (8.5-10.1) L 01/26/19 18:55 Magnesium 2.4 mg/dl (1.8-2.4) 01/26/19 20:57 Total Bilirubin 0.8 mg/dl (0.2-1) 01/26/19 18:55 AST 135 U/L (15-37) H 01/26/19 20:57 ALT 36 U/L (12-78) 01/26/19 18:55 Alkaline Phosphatase 107 U/L (45-117) 01/26/19 18:55 Total Creatine Kinase 5503 U/L (26-192) H 01/26/19 20:57 Total Protein 6.1 gm/dl (6.4-8.2) L 01/26/19 18:55 Albumin 2.5 gm/dl (3.4-5.0) L 01/26/19 18:55 Globulin 3.6 gm/dl (2.5-4.0) 01/26/19 18:55 Albumin/Globulin Ratio 0.7 (0.9-2) L 01/26/19 18:55 TSH 0.675 uIu/ml (0.300-4.500) 01/26/19 20:[address] head: 1. No acute intracranial findings. 2. Exam mildly compromised by motion artifact. No displaced calvarial fractures identified. Pelvis x-ray: Foreshortening of the left femoral neck which is likely technical. However, the findings could be correlated with left hip pain and left hip radiographs. Right tibia-fibula x-ray: 1. Acute mildly displaced avulsion fracture of the fibular tip. 2. Suspected widening of the tibiotalar talar joint which suggests partial ankle mortise disruption. 3. Soft tissue gas of the right lower leg, ankle and foot which is of indeterminate etiology. This could be due to an open fracture or infectious process. Chest x-ray did not show any acute cardiopulmonary findings.
[2019-01-27] MEDS: LACTATED RINGER'S 1,000 ML IV SCH ×3 (02:20→22:15)
[2019-01-27] MEDS ORDERED: ACETAMINOPHEN 325 MG TAB PO PRN (06:26)
--- NOTE | 2019-01-27 06:59 | CT Scan Report ---
CT cervical spine wo con CT DOSE: 355.52 mGy.cm HISTORY: Trauma. Pain. neck pain, hx fall TECHNIQUE: Multiaxial CT images of the cervical spine were performed and reformatted in the sagittal and coronal plane without the use of contrast. A dose lowering technique was utilized adhering to th e principles of ALARA. COMPARISON: None. FINDINGS: Degenerative disc changes throughout. Grade 1 anterolisthesis C4 on C5 probably secondary t o degenerative changes of posterior elements. No evidence for an acute compression deformity. IMPRESSION: Degenerative change. No acute process. The above report was generated using voice recognition software. It may contain grammatical, syntax or spelling errors. Electronically signed by: Maksim Lambert M.D. 01/27/2019 6:58 AM
--- NOTE | 2019-01-27 07:09 | XRay Report ---
XR ankle RT min 3V routine HISTORY: 58 years-old Female fibula fx acute fracture of the right distal fibula COMPARISON: Right ankle radiographs of same day at 7:33 PM TECHNIQUE: 3 views of the right ankle FINDINGS: Status post casting of the acute distal fibular fracture which again is noted to be slightly displace d distally by approximately 2 mm. Mild widening of the tibiotalar joint redemonstrated which is impro lauren from comparison. Lateral skin fide are noted with soft tissue swelling and deep tissue air. IMPRESSION: 1. Status post casting of the acute distal fibular fracture which is again noted to be mildly displac ed. 2. Mild widening of the tibiotalar joint, improved from comparison. The above report was generated using voice recognition software. It may contain grammatical, syntax o r spelling errors. Electronically signed by: Oliver Crockett M.D. 01/27/2019 7:07 AM
--- NOTE | 2019-01-27 07:56 | Operative Report ---
DATE OF OPERATION: 01/26/2019 PREOPERATIVE DIAGNOSES: 1. Right ankle open wound. 2. Right ankle distal fibula fracture, open. POSTOPERATIVE DIAGNOSES: 1. Right ankle open wound. 2. Right ankle distal fibula fracture, open. PROCEDURES: 1. Right ankle irrigation and debridement, open distal fibula fracture. 2. Right ankle closed treatment of distal fibular fracture. SURGEON: Jacky Lira M.D. PIPE LINE WALKER: None. ANESTHESIA: General. INDICATIONS: This is a 58-year-old female who sustained the above-mentioned fall. She presents with open wound over the lateral malleolus with consideration for open fracture. The risks and benefits have been discussed including, but not limited to, risk of infection, nerve injury, stiffness, loss of motion, failure to improve, etc. Reasonable outcomes and options of treatment were discussed. An explanation of appropriate alternatives to the procedure that may be advantageous were discussed and their risks and benefits, as well as the risks and benefits of not proceeding with treatment. I offered to answer any additional inquiries concerning the treatment involved. All the patient's questions were answered. The patient is agreeable, understanding of the treatment plan and alternatives, and wishes to proceed with the treatment plan. DESCRIPTION OF OPERATION: The patient's open wound was inspected. It was about the size of a pencil eraser. I extended the incision proximally and distally over the lateral malleolus over the open wound. Dissection was carried down through the skin and subcutaneous tissues. Moderate amount of fat was encountered and some dirt and debridement was encountered. The open fracture was confirmed and the open wound did extend down to the distal fibula. There was gross instability with a varus stress to the foot but valgus stress did show good stability. I then irrigated the area copiously with 2 liters of normal saline and debridement of skin, subcutaneous tissue and bone was performed. There was evidence of a ligament avulsion and tearing of the lateral aspect of the ankle. I removed dirt and debris in the wound and the wound again was irrigated. Tourniquet was let down, hemostasis was obtained with bipolar electrocautery. Skin was closed with fide and I packed the proximal portion of the incision with iodoform gauze. The patient was placed in a soft dressing. I elected to proceed with closed treatment of distal fibular fracture by placing the patient in a posterior splint with U. I placed the patient in dorsiflexion and this did result in good stability of the mortise and ankle. Postoperative plan will be cast immobilization with nonweightbearing. I attest to the content of the Intraoperative Record and any orders documented therein. Any exception s are noted below.
[2019-01-27 08:31] LABS: Basophils # (auto) 0.02 K/uL (0-0.2); Basophils % (auto) 0.1 %; Eosinophils # (auto) 0.01 K/uL (0-0.5); Eosinophils % (auto) 0.1 %; Hematocrit (blood only) 35.1 % (37-47); Hemoglobin 11.5 g/dL (12.0-16.0); Immature Granulocytes # (auto) 0.18 K/uL (0.00-0.02); Lymphocytes # (auto) 1.37 K/uL (1.2-3.4); Lymphocytes % (auto) 7.3 %; Mean Corpuscular Hemoglobin 28.9 pg (25-34); Mean Corpuscular Hgb Conc 32.8 g/dL (32-36); Mean Corpuscular Volume 88.2 fL (80-100); Mean Platelet Volume 9.6 fL (7.4-10.4); Monocytes # (auto) 1.45 K/uL (0.11-0.59); Monocytes % (auto) 7.8 %; Neutrophils # (auto) 15.61 K/uL (1.4-6.5); Neutrophils % (auto) 83.7 %; Platelet Count 261 K/uL (130-400); RDW Coefficient of Variation 13.4 % (11.5-14.5); RDW Standard Deviation 43.7 fL (36.4-46.3); Red Blood Count 3.98 M/uL (4.2-5.4); White Blood Count 18.64 K/uL (4.8-10.8)
[2019-01-27 08:39] LABS: BUN Creatinine Ratio 26.8 (10-20); Calcium 7.8 mg/dl (8.5-10.1); Creatinine Clr Calc Pharmacy 81.7 ml/min; Est GFR (African American) 60.5; Est GFR (Non-African American) 52.2; Potassium 3.7 mmol/L (3.5-5.1)
[2019-01-27] MEDS: GABAPENTIN 300 MG CAP PO SCH ×3 (08:44→21:04)
[2019-01-27] MEDS: dilTIAZem HCL 240 MG CAPCR PO SCH (08:44)
[2019-01-27] MEDS: CITALOPRAM 40 MG TAB PO SCH (08:45)
[2019-01-27 08:58] LABS: Bilirubin Direct 0.2 mg/dl (0-0.2); Bilirubin,Total 0.5 mg/dl (0.2-1); Total Protein 4.9 gm/dl (6.4-8.2)
--- NOTE | 2019-01-27 10:17 | Orthopedic Progress Note ---
Date of Service January 27, 2019 Assessment & Plan (1) Open fracture of right ankle: POD#1 right ankle I&D of open distal fibula fracture -Will need PT/OT FARSHAD woods RLIsmael -Pain management -DVT prophylaxis per medicine team-okay for Heparin -Ancef x 24 hours post op -D/C planning uncertain at this time Subjective Patient is POD#1 right ankle open fracture I&D by Dr. Lira. She is drowsy by is arousable, answers questions appropriately. Ankle pain controlled. Denies chest pain, sob, n/v, dizziness. Review of Systems Review of Systems: All systems reviewed & are unremarkable except as noted in HPI & below Physical Exam Physical Exam: Right ankle dressing/splint in place c/d/i, no calf tenderness. Sensation and n/v status intact, toes mobile Results & Data Vital Signs (Past 12 Hours) Vital Signs Temp Pulse Pulse Resp BP BP Pulse Ox 01/27/19 08:00 36.5 C 78 18 127/83 99 01/27/19 04:00 36.5 C 71 16 91/65 L 98 01/27/19 02:30 36.6 C 70 16 94/66 L 95 01/27/19 01:34 36.5 C 77 16 96/64 L 96 01/27/19 00:00 36.4 C L 77 16 93/68 L 100 01/26/19 23:30 36.3 C L 84 16 114/74 100 01/26/19 23:16 36.5 C 83 20 108/67 97 01/26/19 22:51 36.5 C 84 20 114/66 95 01/26/19 22:46 36.4 C L 81 16 115/70 95 01/26/19 22:41 36.4 C L 82 18 121/76 96 01/26/19 22:36 36.4 C L 85 17 119/68 96 Laboratory Results Lab Results 01/26/19 01/26/19 01/26/19 Range/Units 17:51 18:55 18:55 WBC 25.87 H (4.8-10.8) K/uL RBC 4.71 (4.2-5.4) M/uL Hgb 13.7 (12.0-16.0) g/dL Hct 40.8 (37-47) % MCV 86.6 (80-100) fL MCH 29.1 (25-34) pg MCHC 33.6 (32-36) g/dL RDW Std Deviation 41.9 (36.4-46.3) fL RDW Coeff of Fausto 13.1 (11.5-14.5) % Plt Count 282 (130-400) K/uL MPV 10.0 (7.4-10.4) fL Immature Gran % (Auto) 1.2 % Neut % (Auto) 86.0 % Lymph % (Auto) 5.6 % [place] % (Auto) 7.0 % Eos % (Auto) 0.0 % Baso % (Auto) 0.2 % Immature Gran # (Auto) 0.32 H (0.00-0.02) K/uL Neut # (Auto) 22.26 H (1.4-6.5) K/uL Lymph # (Auto) 1.44 (1.2-3.4) K/uL [place] # (Auto) 1.81 H (0.11-0.59) K/uL Eos # (Auto) 0.00 (0-0.5) K/uL Baso # (Auto) 0.04 (0-0.2) K/uL Echinocytes 1+ PT (9.0-12.0) Seconds INR (0.9-1.1) Sodium 142 (136-145) mmol/L Potassium (3.5-5.1) mmol/L Chloride 109 H (98-107) mmol/L Carbon Dioxide 22 (21-32) mmol/L Anion Gap 12.0 H (3-11) BUN 28 H (7-18) mg/dl Creatinine 1.51 H (0.6-1.2) mg/dl Est Cr Clr Drug Dosing 61.4 ml/min Est GFR ( Amer) 43.1 Est GFR (Non-Af Amer) 37.2 BUN/Creatinine Ratio 18.7 (10-20) Glucose 103 H (70-99) mg/dl POC Glucose 91 (70-99) Calcium 8.3 L (8.5-10.1) mg/dl Magnesium (1.8-2.4) mg/dl Total Bilirubin 0.8 (0.2-1) mg/dl Direct Bilirubin (0-0.2) mg/dl AST (15-37) U/L ALT 36 (12-78) U/L Alkaline Phosphatase 107 (45-117) U/L Total Creatine Kinase (26-192) U/L Total Protein 6.1 L (6.4-8.2) gm/dl Albumin 2.5 L (3.4-5.0) gm/dl Globulin 3.6 (2.5-4.0) gm/dl Albumin/Globulin Ratio 0.7 L (0.9-2) TSH (0.300-4.500) uIu/ml 01/26/19 01/26/19 01/26/19 Range/Units 20:57 20:57 20:57 WBC (4.8-10.8) K/uL RBC (4.2-5.4) M/uL Hgb (12.0-16.0) g/dL Hct (37-47) % MCV (80-100) fL MCH (25-34) pg MCHC (32-36) g/dL RDW Std Deviation (36.4-46.3) fL RDW Coeff of Fausto (11.5-14.5) % Plt Count (130-400) K/uL MPV (7.4-10.4) fL Immature Gran % (Auto) % Neut % (Auto) % Lymph % (Auto) % [place] % (Auto) % Eos % (Auto) % Baso % (Auto) % Immature Gran # (Auto) (0.00-0.02) K/uL Neut # (Auto) (1.4-6.5) K/uL Lymph # (Auto) (1.2-3.4) K/uL [place] # (Auto) (0.11-0.59) K/uL Eos # (Auto) (0-0.5) K/uL Baso # (Auto) (0-0.2) K/uL Echinocytes PT 11.8 (9.0-12.0) Seconds INR 1.2 H (0.9-1.1) Sodium (136-145) mmol/L Potassium 3.3 L (3.5-5.1) mmol/L Chloride (98-107) mmol/L Carbon Dioxide (21-32) mmol/L Anion Gap (3-11) BUN (7-18) mg/dl Creatinine (0.6-1.2) mg/dl Est Cr Clr Drug Dosing ml/min Est GFR ( Amer) Est GFR (Non-Af Amer) BUN/Creatinine Ratio (10-20) Glucose (70-99) mg/dl POC Glucose (70-99) Calcium (8.5-10.1) mg/dl Magnesium 2.4 (1.8-2.4) mg/dl Total Bilirubin (0.2-1) mg/dl Direct Bilirubin (0-0.2) mg/dl AST 135 H (15-37) U/L ALT (12-78) U/L Alkaline Phosphatase (45-117) U/L Total Creatine Kinase 5503 H (26-192) U/L Total Protein (6.4-8.2) gm/dl Albumin (3.4-5.0) gm/dl Globulin (2.5-4.0) gm/dl Albumin/Globulin Ratio (0.9-2) TSH 0.675 (0.300-4.500) uIu/ml 01/27/19 01/27/19 Range/Units 07:49 07:49 WBC 18.64 H (4.8-10.8) K/uL RBC 3.98 L (4.2-5.4) M/uL Hgb 11.5 L (12.0-16.0) g/dL Hct 35.1 L (37-47) % MCV 88.2 (80-100) fL MCH 28.9 (25-34) pg MCHC 32.8 (32-36) g/dL RDW Std Deviation 43.7 (36.4-46.3) fL RDW Coeff of Fausto 13.4 (11.5-14.5) % Plt Count 261 (130-400) K/uL MPV 9.6 (7.4-10.4) fL Immature Gran % (Auto) 1.0 % Neut % (Auto) 83.7 % Lymph % (Auto) 7.3 % [place] % (Auto) 7.8 % Eos % (Auto) 0.1 % Baso % (Auto) 0.1 % Immature Gran # (Auto) 0.18 H (0.00-0.02) K/uL Neut # (Auto) 15.61 H (1.4-6.5) K/uL Lymph # (Auto) 1.37 (1.2-3.4) K/uL [place] # (Auto) 1.45 H (0.11-0.59) K/uL Eos # (Auto) 0.01 (0-0.5) K/uL Baso # (Auto) 0.02 (0-0.2) K/uL Echinocytes PT (9.0-12.0) Seconds INR (0.9-1.1) Sodium 142 (136-145) mmol/L Potassium 3.7 (3.5-5.1) mmol/L Chloride 110 H (98-107) mmol/L Carbon Dioxide 23 (21-32) mmol/L Anion Gap 9.0 (3-11) BUN 31 H (7-18) mg/dl Creatinine 1.14 D (0.6-1.2) mg/dl Est Cr Clr Drug Dosing 81.7 ml/min Est GFR ( Amer) 60.5 Est GFR (Non-Af Amer) 52.2 BUN/Creatinine Ratio 26.8 H (10-20) Glucose 96 (70-99) mg/dl POC Glucose (70-99) Calcium 7.8 L (8.5-10.1) mg/dl Magnesium (1.8-2.4) mg/dl Total Bilirubin 0.5 (0.2-1) mg/dl Direct Bilirubin 0.2 (0-0.2) mg/dl AST 122 H (15-37) U/L ALT 33 (12-78) U/L Alkaline Phosphatase 94 (45-117) U/L Total Creatine Kinase 3943 H (26-192) U/L Total Protein 4.9 L D (6.4-8.2) gm/dl Albumin 2.0 L (3.4-5.0) gm/dl Globulin (2.5-4.0) gm/dl Albumin/Globulin Ratio (0.9-2) TSH (0.300-4.500) uIu/ml (1) Open fracture of right ankle Encounter type: initial encounter Open fracture type: open type I or II Qualified Code(s): S82.891B - Other fracture of right lower leg, initial encounter for open fracture type I or II
[2019-01-27] MEDS: CEFAZOLIN 2000MG 2,000 MG/15 ML SYR IV SCH ×2 (12:17→18:36)
[2019-01-27 12:55] LABS: Appearance Urine Cloudy (Clear); Bacteria Urine Automated Negative (Negative); Blood Urine 3+ (Negative); Color Urine Dark Yellow; Epithelial Cell Urine Auto >30 /lpf (0-5); Glucose Urine UA Negative (Negative); Ketones Urine Negative (Negative); Leukocyte Esterase Urine Trace (Negative); Nitrite Urine Negative (Negative); Protein Urine 1+ (Negative); RBC Urine Automated 0-4 /hpf (0-4); Specific Gravity Urine 1.023 (1.000-1.030); Urobilinogen Urine Negative (Negative)
[2019-01-27 13:19] LABS: Bilirubin Urine Negative (Negative); Ictotest Urine Negative (Negative)
--- NOTE | 2019-01-27 17:55 | Hospitalist Progress Note ---
Date of Service January 27, 2019 Assessment & Plan (1) Open fracture of right ankle: POD#1 right ankle I&D of open distal fibula fracture Continue pain management WBC trending down from Continue ancef as per ortho management (2) ARF (acute renal failure): Creatinine 1.5 on admission, improves to 1.1 today Received IVF Avoid nephrotoxic agents Monitor BMP (3) Rhabdomyolysis: Due to mechanical fall (was unable to get of the floor for about 24 hrs CPK on admission above 5K received IVF, CPK dropped to 3K Will continue gentle hydration Repeat CPK in am DVT px on heparin subq Disposition as per ortho Subjective Pt was seen and examined Lying in bed with no distress Pt said that she feels tired because she did not sleep last night She said that she is having pain in her ankle Denies any chest pain, palpitation, dizziness and SOB Physical Exam Physical Exam: General- very sleepy Head- atraumatic Eyes- PERRL, EOMI, ENT- oropharynx clear Neck- supple, no JVD Lungs- clear to auscultation Heart- regular rhythm; no murmur Abdomen- normal bowel sounds, soft, nontender Extremities- +Dressing RLE, +B/L edema Neuro- alert, oriented, move all 4 extremities Skin- warm & dry Results & Data Vital Signs (Past 12 Hours) Vital Signs Temp Pulse Resp BP Pulse Ox 01/27/19 15:20 36.6 C 77 20 118/78 98 01/27/19 12:00 37.1 C 86 20 104/65 98 01/27/19 08:00 36.5 C 78 18 127/83 99 (1) Rhabdomyolysis Encounter type: initial encounter Rhabdomyolysis type: traumatic Qualified Code(s): T79.6XXA - Traumatic ischemia of muscle, initial encounter (2) Open fracture of right ankle Encounter type: initial encounter Open fracture type: open type I or II Qualified Code(s): S82.891B - Other fracture of right lower leg, initial encounter for open fracture type I or II
[2019-01-27] MEDS ORDERED: SODIUM CHLORIDE 0.9% 500 ML IV SCH (18:30)
[2019-01-27] MEDS ORDERED: LACTATED RINGER'S 1,000 ML IV ONE ×2 (19:33)
[2019-01-27 19:56] LABS: Hematocrit (blood only) 31.2 % (37-47); Hemoglobin 10.4 g/dL (12.0-16.0)
[2019-01-27] MEDS: MICONAZOLE NITRATE POWDER 43 GM EXT SCH (21:04)
[2019-01-28] MEDS ORDERED: OXYCODONE/ACETAMINOPHEN 5mg/325mg TAB PO PRN (00:16)
[2019-01-28] MEDS: LACTATED RINGER'S 1,000 ML IV SCH ×3 (03:15→14:30)
[2019-01-28 07:29] LABS: Hematocrit (blood only) 34.7 % (37-47); Hemoglobin 11.1 g/dL (12.0-16.0); Mean Corpuscular Hemoglobin 28.4 pg (25-34); Mean Corpuscular Volume 88.7 fL (80-100); Mean Platelet Volume 9.7 fL (7.4-10.4); Platelet Count 218 K/uL (130-400); RDW Coefficient of Variation 13.6 % (11.5-14.5); RDW Standard Deviation 44.2 fL (36.4-46.3); Red Blood Count 3.91 M/uL (4.2-5.4); White Blood Count 11.83 K/uL (4.8-10.8)
[2019-01-28] MEDS: GABAPENTIN 300 MG CAP PO SCH ×2 (08:23→14:19)
[2019-01-28] MEDS: MICONAZOLE NITRATE POWDER 43 GM EXT SCH (08:23)
[2019-01-28] MEDS: dilTIAZem HCL 240 MG CAPCR PO SCH (08:23)
[2019-01-28] MEDS: CITALOPRAM 40 MG TAB PO SCH (08:23)
--- NOTE | 2019-01-28 13:39 | Orthopedic Progress Note ---
Date of Service January 28, 2019 Assessment & Plan (1) Open fracture of right ankle: POD#2 right ankle I&D of open distal fibula fracture -Will need PT/OT [place] -Pain management -DVT prophylaxis per medicine team-okay for Heparin -Ancef x 24 hours post op -D/C --she was accepted at [facility] so plan for transport later today. Subjective States the right ankle is comfortable as long as the leg isn't moving. Manipulation cases pain. No other right ankle complaints today. States she was recently NWB for a prolonged period of time earlier this year and spent time in a SNF in [place]. Physical Exam Constitutional: WD/WN, vitals as above + morbidly obese Musculoskeletal: Right ankle: The dressing was removed and ~2-3 inches of packing was removed from the proximal aspect of the incision at the lateral ankle. Well approximated incision. Mild serosanguinous drainage from the packing site. No erythema. No purulence. Tender at the lateral ankle and with manipulation of the right leg. Psychiatric: A+Ox3, euthymic affect Results & Data Vital Signs (Past 12 Hours) Vital Signs Temp Pulse Pulse Resp BP Pulse Ox 01/28/19 11:56 36.9 C 82 18 118/74 98 01/28/19 07:56 36.7 C 77 20 142/84 H 100 01/28/19 03:45 37.0 C 85 16 95/58 L 93 (1) Open fracture of right ankle Encounter type: initial encounter Open fracture type: open type I or II Qualified Code(s): S82.891B - Other fracture of right lower leg, initial encounter for open fracture type I or II
--- NOTE | 2019-01-28 16:46 | Hospitalist Progress Note ---
Date of Service January 28, 2019 Assessment & Plan (1) Open fracture of right ankle: POD#2 right ankle I&D of open distal fibula fracture Continue pain management WBC trending down to 11K On ancef as per ortho management (2) ARF (acute renal failure): Creatinine 1.5 on admission, improves to 1.1 Received IVF Avoid nephrotoxic agents Monitor BMP (3) Rhabdomyolysis: Due to mechanical fall (was unable to get of the floor for about 24 hrs CPK on admission above 5K received IVF, CPK dropped to 2338 today continue IV fluid DVT px on heparin subq Disposition as per ortho Subjective Pt was seen and examined Lying in bed with no distress Pt said that she does have pain in the right ankle with movement Denies any chest pain, palpitation, dizziness and SOB Physical Exam Physical Exam: General- very sleepy Head- atraumatic Eyes- PERRL, EOMI, ENT- oropharynx clear Neck- supple, no JVD Lungs- clear to auscultation Heart- regular rhythm; no murmur Abdomen- normal bowel sounds, soft, nontender Extremities- +Dressing RLE, +B/L edema Neuro- alert, oriented, move all 4 extremities Skin- warm & dry Results & Data Vital Signs (Past 12 Hours) Vital Signs Temp Pulse Pulse Pulse Resp BP BP 01/28/19 16:09 37.4 C 82 78 82 17 140/80 91/65 L 01/28/19 15:32 37.4 C 78 17 140/80 01/28/19 11:56 36.9 C 82 18 118/74 01/28/19 07:56 36.7 C 77 20 142/84 H Pulse Ox 01/28/19 16:09 98 01/28/19 15:32 98 01/28/19 11:56 98 01/28/19 07:56 100 (1) Open fracture of right ankle Encounter type: initial encounter Open fracture type: open type I or II Qualified Code(s): S82.891B - Other fracture of right lower leg, initial encounter for open fracture type I or II (2) Rhabdomyolysis Encounter type: initial encounter Rhabdomyolysis type: traumatic Qualified Code(s): T79.6XXA - Traumatic ischemia of muscle, initial encounter
--- NOTE | 2019-02-07 13:14 | Discharge Summary ---
Date of Service February 07, 2019 Principal Diagnosis open lateral malleolus fracture right ankle Discharge Exam Constitutional WD/WN, vitals as above + morbidly obese Musculoskeletal Right ankle: splint C/D/I. Iodoform gauze packing was removed. Incision well approximated. No erythema or streaking. Psychiatric A+Ox3, euthymic affect Discharge Data Allergies Allergy/AdvReac Type Severity Reaction Status Date / Time vancomycin AdvReac Severe ACUTE Verified 07/06/18 15:38 RENAL FAILURE Consultations 01/26/19 20:49 ED Decision to Admit Stat Procedures Performed Operation Date: 01/26/19 20:40 Actual Procedures p Incision and Drainage Right Ankle(Right) - Rishi Lira MD Ordered Studies 01/26/19 16:57 CT head/brain wo con Stat 01/27/19 06:26 CT cervical spine wo con Urgent Hospital Course (1) Open fracture of right ankle: The patient was admitted on 01.26.19 for an open lateral malleolus fracture of the right leg. She underwent an I & D and splinting of the fx. The progressed well with pain control. She was NWB on the RLE but had difficulty with maintaining NWB on the lower extremity on her own. She was accepted to [facility] and was discharged on POD #2. POD#2 right ankle I&D of open distal fibula fracture -Will need PT/OT evals, NWB RLE -Pain management -DVT prophylaxis per medicine team-okay for Heparin -Ancef x 24 hours post op -D/C --she was accepted at [facility] so plan for transport later today. Total Time Total Time Spent Total Time Spent (In Minutes): 30 Total Time Includes: Examination of the Patient, Discharge Planning and Medication Reconciliation Discharge Plan Discharge Items Patient Disposition: Transfer Inpatient Rehab Fac Reason For Visit: OPEN WOUND RIGHT ANKLE Discharge Diagnosis: right ankle open [place] A lateral malleolus fracture Discharge Goals: Decrease discomfort, Improve disease control and Improve function Activity: Per 'Additional Instructions' section Weightbearing: Right non-weightbearing Non-emergency contact: Surgeon Call non-emergency contact if: your pain is not controlled, your pain is worsening and your temperature is above 101.5 Follow-up/Referrals: PCP,NO [Primary Care Provider] - Diet: Heart Healthy Addtl Provider Instructions: ACTIVITY RECOMMENDATIONS: Limitations: No weight bearing to affected limb at all times. SPECIAL CARE INSTRUCTIONS: * Some drainage onto the dressing is normal and is no cause for alarm. * Some swelling is natural especially after walking. * When resting, keep your foot elevated above the level of your heart. * Call [facility] if you notice: -Increased drainage -Fever over 101.5 degrees F -Severe constant pain BANDAGE: * Leave bandage/cast in place unless otherwise directed. * Keep bandage/cast dry at all times. FOLLOW UP VISIT WITH DR. GONZALES If appointment is not already scheduled: Please call [facility] after you get home today to schedule a follow-up appointment for [address] Lira at . Prescriptions: New oxycodone-acetaminophen [Percocet] 5-325 mg Tablet 1 tab PO Q4H PRN (Reason: pain) Qty: 30 RF: 0 Continued citalopram [Celexa] 40 mg Tablet 40 mg PO QAM RF: 0 diltiazem HCl 240 mg Capsule,Extended Release 24 Hr 240 mg PO QAM RF: 0 gabapentin 300 mg Capsule 300 mg PO TID RF: 0 Discontinued diclofenac sodium 75 mg Tablet,Delayed Release (Dr/Ec) 75 mg PO BID RF: 0 Stand-Alone Forms: [facility] Discharge Orders: Discharge Order (Routine); Ordered 01/28/19 Ordered By: Diallo Osorio Skilled Items Patient informed of condition?: Yes DNR: No Discharge Level of Care: Acute rehab Communicable Disease: No Discharge Prognosis: Stable Admission Data Admit Date/Time: 01/26/19 21:18 Attending Provider: Rishi Lira Admit Provider: Rishi Lira Primary Care Provider: PCP,NO Other Providers: Anthony Reyes Service: Surgical Services Other Interventions: Discharge Summary Assessment (RN) Last Done: 01/28/19 16:09 DC Date/Time DO NOT enter until pt leaves facility: 01/28/19 16:27
== END 2019-01-28 16:27 | DRG 464 ==
LOC: ED 16:38 → 3W 21:17 → OR 21:17 → 3W 21:18
DX: M62.82 Rhabdomyolysis; W19.XXXA Unspecified fall, initial encounter; N17.9 Acute kidney failure, unspecified; S82.831B Other fracture of upper and lower end of right fibula, initial encounter for open fracture type I or II